=== PATIENT | female | born 1965 | race Caucasian/White ===

== ENCOUNTER 2019-06-12 23:12 | Inpatient (IN) | payer OTHER ==
--- NOTE | 2019-06-12 23:28 | PDOC ---
Attending Attestation - Resident Resident Name: Miya Henao - ED Attending Attestation I have performed the following: I have examined & evaluated the patient, The case was reviewed & discussed with the resident, I agree w/resident's findings & plan - HPI HPI: 06/13/19 03:25 see resident hpi - Physicial Exam PE: 06/13/19 03:25 agree with resident exam - Critical Care Time Total Critical Care Time: 120 Critical Care Statement: The care of this patient involved high complexity decision making to prevent further life threatening deterioration of the patient 's condition and/or to evaluate & treat vital organ system(s) failure or risk of failure. - Medical Decision Making 06/13/19 03:25 53 yo female with respiratory arrest witnessed by retirement staff According to paramedics patient was in PEA and returned to sinus rhythm after 2 minutes of CPR Patient has a tracheostomy in place Patient had return of spontaneous circulation prior to arrival Sepsis work-up initiated, antibiotics initiated Cooling protocol initiated as well Patient to be admitted to the ICU
[2019-06-12 23:41] LABS: BASO % 0.3 % (0-2.0); EOS % 3.1 % (0-4.5); HEMATOCRIT 34.2 % (32.4-45.2); HEMOGLOBIN 10.3 GM/dL (10.7-15.3); LYMPH % 21.5 % (8-40); MCH 30.7 pg (25.7-33.7); MEAN CELL VOLUME 102.4 fl (80-96); MEAN PLT VOLUME 11.4 fl (7.5-11.1); MONO % 2.8 % (3.8-10.2); NEUT % 72.3 % (42.8-82.8); PLATELET COUNT 319 K/MM3 (134-434); RBC 3.34 M/mm3 (3.60-5.2); RDW 17.7 % (11.6-15.6); WHITE BLOOD COUNT 15.5 K/mm3 (4.0-10.0)
--- NOTE | 2019-06-12 23:50 | PDOC ---
History of Present Illness - General Chief Complaint: Cardiac Arrest Stated Complaint: CARDIAC ARREST Time Seen by Provider: 06/12/19 23:27 History Source: EMS, [facility] Records Exam Limitations: Clinical Condition - History of Present Illness Initial Comments: 06/12/19 23:58 53y F with PMH of Osteogenesis Imperfecta, COPD, Chronic Respiratory Failure s/ p Trach, Autism Spectrum Disorder, Wedge Compression Fracture of T2 BIBA from [facility] for cardiac arrest s/p rosc. Per NH, nurse was helping resident in the same room as patient and saw that patient appeared oh and was not responsive. Compressions were started and EMS arrived. Per EMS, rhythm was PEA and they did 2 rounds of CPR with ROSC after 4 minutes. Pt was then tachycardic. No medications were given. Per NH, patient is able to move extremities at baseline, and can respond to commands. PMD: Joey PMH: see hpi PSH: Meds: see med rec Allergies: Past History - Past Medical History Allergies/Adverse Reactions: Allergies Allergy/AdvReac Type Severity Reaction Status Date / Time birch Allergy Severe Rash Verified 06/13/19 00:48 iodine Allergy Severe Rash Verified 06/13/19 00:49 lactase [From Lactrase] Allergy Mild Rash Verified 06/13/19 00:50 Home Medications: Ambulatory Orders Acetaminophen 325 mg PO DAILY 06/13/19 Albuterol 2.5/Ipratropium 0.5 [Duoneb -] 1 puff PO DAILY 06/13/19 Ascorbic Acid [Vitamin C] 500 mg PO DAILY 06/13/19 Bisacodyl 1 gm MC DAILY 06/13/19 Calcium Carbonate - 650 mg PO DAILY 06/13/19 Ciclopirox/Urea/Camph/Men/Euc [Ciclodan 8% Kit] 34.6 ml TP DAILY 06/13/19 Cyclobenzaprine HCl 5 mg PO DAILY 06/13/19 Docusate Sodium 1 gm MC DAILY 06/13/19 Famotidine 20 mg PO DAILY 06/13/19 Fluoxetine HCl [Prozac -] 20 mg PO DAILY 06/13/19 Gabapentin 250 mg PO DAILY 06/13/19 Heparin - 5,000 unit SQ BID 06/13/19 Miconazole Nitrate [Secura Antifungal] 57 gm TP DAILY 06/13/19 Nystatin 1 each MC DAILY 06/13/19 Polyethylene Glycol 3350 [Laxaclear] 1,700 gm PO DAILY 06/13/19 Risperidone 0.25 mg PO DAILY 06/13/19 Senna Vinco Extract [Senna] 176 mg PO DAILY 06/13/19 oxyCODONE HCL [Roxicodone -] 5 mg PO Q6H 06/13/19 - Psycho Social/Smoking Cessation Hx Smoking History: Unknown if ever smoked Review of Systems - Review of Systems Able to Perform ROS?: No *Physical Exam - Vital Signs Last Vital Signs Temp Pulse Resp BP Pulse Ox 97.5 F L 115 H 16 154/52 L 95 06/12/19 23:13 06/12/19 23:13 06/12/19 23:19 06/12/19 23:13 06/12/19 23:13 - Physical Exam General Appearance: Yes: Thin, Other (unresponsive, mouth open) HEENT: positive: Other (mouth open, dry mucosa). negative: EOMI, MANPREET Neck: positive: Trachea midline, Supple. negative: Lymphadenopathy (R), Lymphadenopathy (L) Respiratory/Chest: positive: Rhonchi, Other (vent assisted breathing) Cardiovascular: positive: Regular Rhythm, S1, S2, Tachycardia. negative: Edema , JVD, Murmur Vascular Pulses: Dorsalis-Pedis (R): 2+, Doralis-Pedis (L): 2+ Gastrointestinal/Abdominal: positive: Normal Bowel Sounds, Soft, Distended. negative: Guarding, Rebound, Hernia, Mass Extremity: positive: Coldness. negative: Swelling, Calf Tenderness, Erythema Integumentary: positive: Normal Color, Cold, Clammy, Bruising (old bruising on anterior abdomen). negative: Rash Neurologic: negative: medical education manager II-XII NML intact, Fully Oriented, Alert, Normal Response, Motor Strength 5/5, Respond to painful stimul, Responsive ED Treatment Course - LABORATORY CBC & Chemistry Diagram: 06/12/19 23:35 06/12/19 23:35 - ADDITIONAL ORDERS Additional order review: 06/12/19 23:35 RBC 3.34 L MCV 102.4 H MCHC 30.0 L RDW 17.7 H MPV 11.4 H Neutrophils % 72.3 Lymphocytes % 21.5 Monocytes % 2.8 L Eosinophils % 3.1 Basophils % 0.3 Medical Decision Making - Critical Care Time Total Critical Care Time (minutes): 120 Critical Care Statement: The care of this patient involved high complexity decision making to prevent further life threatening deterioration of the patient 's condition and/or to evaluate & treat vital organ system(s) failure or risk of failure. - Medical Decision Making 06/13/19 02:08 53y F with PMH of OI, COPD, Respiratory Failure s/p trach, PEG tube, ASD BIBA from [facility] for unresponsiveness, cardiac arrest with ROSC after 4m of cpr. Patient found unresponsive at MD. Unknown when patient was seen prior to that. CPR with MAKAYLA vitals: saturating well with vent, tachycardic, normotensive. EMS started 1L NS ddx includes but not limited to sepsis, electrolyte abnormality, mi, stroke, pe , ptx, tamponade, bleed, hypoxia labs including cultures, lactate, cardiac profile. iv fluids. ekg: nsr at 93bpm normal intervals. no cristofer or depresions. twi in v1, v2. goor R wave progression. CXR: poor film, small pnuemothorax in EVETTE. unkown if there before. haziness in RLL. labs show leukocytosis (infection v. reactive), low hgb (prior unknown), lactic 13, ph 7.3 with CO2 retention (has history of CRF with hypercapnia). elevated LFTs (shock v. hepatic/biliary disease). abdomen is distended. US ordered. low suspicion for AAA rupture given normotensive. POCUS: no intrabdominal ff. unable to visualize aorta due to bowel gas. no pericardial ff. pt likely has brain injury, is not withdrawing from pain, limbs are limp and pupils fixed and nonreactive. cooling started. -vanc/zosyn admitted to ICU Discharge - Discharge Information Problems reviewed: Yes Clinical Impression/Diagnosis: Unresponsive, Cardiac arrest, Abdominal distension Condition: Stable - Admission Yes - Follow up/Referral - Patient Discharge Instructions - Post Discharge Activity
[2019-06-12 23:55] LABS: INR 1.04 (0.83-1.09); PROTHROMBIN TIME (PATIENT) 12.3 SEC (9.7-13.0)
[2019-06-13 00:05] LABS: ALBUMIN 2.4 g/dl (3.4-5.0); BILIRUBIN,TOTAL 0.2 mg/dL (0.2-1); BLOOD UREA NITROGEN 22.5 mg/dL (7-18); CALCIUM 9.2 mg/dL (8.5-10.1); CREATININE 0.8 mg/dL (0.55-1.3); MAGNESIUM 2.1 mg/dL (1.8-2.4); POTASSIUM 4.9 mmol/L (3.5-5.1); TOT PROT 7.3 g/dl (6.4-8.2)
[2019-06-13 00:25] LABS: ALLENS TEST POSITIVE
[2019-06-13 00:28] LABS: ANISOCYTOSIS 1+; MACROCYTOSIS 1+; PLATELET ESTIMATE NORMAL
[2019-06-13 00:29] LABS: ARTERIAL BLD GAS O2 SATURATION 99.4 % (95-98); ARTERIAL BLOOD GAS BASE EXCESS -1.9 meq/l (-2-2); ARTERIAL BLOOD GAS PO2 176 mmHg (80-100); ARTERIAL BLOOD GAS pH 7.33 (7.35-7.45); CARBOXYHEMOGLOBIN 1.2 % (0-2)
[2019-06-13] MEDS ORDERED: LACTATED RINGERS SOLUTION 1000 ML INFUS.BAG IV ONE (01:00)
[2019-06-13 01:05] LABS: EPI CELLS 6.9 /HPF (0-5/HPF); HYALINE CASTS 10 /lpf (0-8); URINE APPEARANCE CLOUDY; URINE BACTERIA 107.4 /hpf (NEGATIVE); URINE BILIRUBIN NEGATIVE (NEGATIVE); URINE COLOR YELLOW; URINE GLUCOSE (UA) 1+ (NEGATIVE); URINE KETONE NEGATIVE (NEGATIVE); URINE LEUK ESTERASE NEGATIVE (NEGATIVE); URINE NITRITE NEGATIVE (NEGATIVE); URINE PROTEIN 2+ (NEGATIVE); URINE RBC 1 /hpf (0-4); URINE UROBILINOGEN 0.2 mg/dL (0.2-1.0); URINE WBC 6 /hpf (0-5)
[2019-06-13] MEDS ORDERED: SODIUM CHLORIDE 1,000 ML IV STA (01:08)
[2019-06-13] MEDS ORDERED: PIPERACILLIN/TAZOB 3.375 GM 3.375 GM in DEXTROSE 5%-WATER - 50 ML IVPB ONE (01:27)
[2019-06-13] MEDS ORDERED: VANCOMYCIN 1 GM in D5W (PRE-DOCKED) 1,000 MG/250 ML IVPB ONE (01:27)
[2019-06-13] MEDS ORDERED: PIPERACILLIN/TAZOB 3.375 GM 3.375 GM/50 ML BAG IVPB ONE (01:54)
[2019-06-13] MEDS ORDERED: VANCOMYCIN 1 GRAM (PRE-DOCKED) 1,000 MG/250 ML BAG IVPB ONE (01:54)
--- NOTE | 2019-06-13 02:09 | CONSULT ---
Consultation: REQUESTING PROVIDER: Dr Henao CONSULT REQUEST: We have been asked to medically evaluate this patient for (s/p cardiac arrest). HISTORY OF PRESENT ILLNESS: Information obtained from EMR as pt non-verbal and non-responsive. This is a 53 y/o F with a PMH of Osteogenesis Imperfecta, COPD, Chronic Respiratory Failure s/p Trach, Autism Spectrum Disorder, Wedge Compression Fracture of T2 who presented to [facility] from [facility] 2/2 cardiac arrest s/p rosc. Pt was reportedly found by OR staff to be pale and non-responsive. Pt was ultimately found to be in PEA and EMs subsequently did 2 rounds of CPR with ROSC after 4 minutes. REVIEW OF SYSTEMS: unable to obtain 2/2 pt's mental status. PHYSICAL EXAMINATION Vital Signs - 24 hr 06/12/19 06/12/19 06/13/19 23:13 23:19 00:41 Temperature 97.5 F L Pulse Rate 115 H Respiratory 15 16 16 Rate Blood Pressure 154/52 L O2 Sat by Pulse 95 Oximetry (%) GENERAL: Trach collar, vented HEAD: Normal with no signs of trauma. EYES: Pinpoint pupils, sluggish, eyes open EARS, NOSE, THROAT:copious secretions in mouth LUNGS: Mechanical Breath sounds HEART: RRR S1S2 ABDOMEN: Echymosis across abdomen, protuberant. PEG tube in place. LOWER EXTREMITIES: Thin, No CCE Laboratory Results - last 24 hr 06/12/19 06/12/19 06/12/19 23:35 23:35 23:35 WBC 15.5 H RBC 3.34 L Hgb 10.3 L Hct 34.2 MCV 102.4 H MCH 30.7 MCHC 30.0 L RDW 17.7 H Plt Count 319 MPV 11.4 H Absolute Neuts (auto) 11.2 H Neutrophils % 72.3 Neutrophils % (Manual) 61.4 Band Neutrophils % 2.0 Lymphocytes % 21.5 Lymphocytes % (Manual) 25.7 Monocytes % 2.8 L Monocytes % (Manual) 1 L Eosinophils % 3.1 Eosinophils % (Manual) 4.9 H Basophils % 0.3 Basophils % (Manual) 0.0 Myelocytes % (Man) 4 H Promyelocytes % (Man) 0 Blast Cells % (Manual) 0 Nucleated RBC % 4 H Metamyelocytes 0 Hypochromia 0 Platelet Estimate Normal Polychromasia 1+ Poikilocytosis 3+ Anisocytosis 1+ Microcytosis 0 Macrocytosis 1+ PT with INR 12.30 INR 1.04 Anticoagulation Therapy Puncture Site ABG pH ABG pCO2 at Pt Temp ABG pO2 at Pt Temp ABG HCO3 ABG O2 Sat (Measured) ABG O2 Content ABG Base Excess Jacob Test Carboxyhemoglobin Methemoglobin O2 Delivery Device Oxygen Flow Rate Vent Mode Vent Rate Mechanical Rate PEEP Pressure Support Vent Sodium 136 Potassium 4.9 Chloride 96 L Carbon Dioxide 21 Anion Gap 19 H BUN 22.5 H Creatinine 0.8 Est GFR (CKD-EPI)AfAm 96.19 Est GFR (CKD-EPI)NonAf 83.00 Random Glucose 266 H Lactic Acid Calcium 9.2 Magnesium 2.1 Total Bilirubin 0.2 AST 309 H ALT 287 H Alkaline Phosphatase 386 H Creatine Kinase 98 Troponin I 0.04 Total Protein 7.3 Albumin 2.4 L Urine Color Urine Appearance Urine pH Ur Specific Musella Urine Protein Urine Glucose (UA) Urine Ketones Urine Blood Urine Nitrite Urine Bilirubin Urine Urobilinogen Ur Leukocyte Esterase Urine WBC (Auto) Urine RBC (Auto) Urine Casts (Auto) U Epithel Cells (Auto) U Sm Round Cell (Auto) Urine Bacteria (Auto) Blood Type Antibody Screen 06/12/19 06/13/19 06/13/19 23:40 00:00 00:20 WBC RBC Hgb Hct MCV MCH MCHC RDW Plt Count MPV Absolute Neuts (auto) Neutrophils % Neutrophils % (Manual) Band Neutrophils % Lymphocytes % Lymphocytes % (Manual) Monocytes % Monocytes % (Manual) Eosinophils % Eosinophils % (Manual) Basophils % Basophils % (Manual) Myelocytes % (Man) Promyelocytes % (Man) Blast Cells % (Manual) Nucleated RBC % Metamyelocytes Hypochromia Platelet Estimate Polychromasia Poikilocytosis Anisocytosis Microcytosis Macrocytosis PT with INR INR Anticoagulation Therapy No Result Required. Puncture Site Left radial ABG pH 7.33 L ABG pCO2 at Pt Temp 46.0 H ABG pO2 at Pt Temp 176 H ABG HCO3 23.5 ABG O2 Sat (Measured) 99.4 H ABG O2 Content 13.3 ABG Base Excess -1.9 Jacob Test Positive Carboxyhemoglobin 1.2 Methemoglobin < 1.0 O2 Delivery Device Vent Oxygen Flow Rate 50% Vent Mode A/c Vent Rate 16 Mechanical Rate Yes PEEP 5.0 Pressure Support Vent 350 Sodium Potassium Chloride Carbon Dioxide Anion Gap BUN Creatinine Est GFR (CKD-EPI)AfAm Est GFR (CKD-EPI)NonAf Random Glucose Lactic Acid 13.8 H* Calcium Magnesium Total Bilirubin AST ALT Alkaline Phosphatase Creatine Kinase Troponin I Total Protein Albumin Urine Color Urine Appearance Urine pH Ur Specific Musella Urine Protein Urine Glucose (UA) Urine Ketones Urine Blood Urine Nitrite Urine Bilirubin Urine Urobilinogen Ur Leukocyte Esterase Urine WBC (Auto) Urine RBC (Auto) Urine Casts (Auto) U Epithel Cells (Auto) U Sm Round Cell (Auto) Urine Bacteria (Auto) Blood Type A NEGATIVE Antibody Screen Negative 06/13/19 00:50 WBC RBC Hgb Hct MCV MCH MCHC RDW Plt Count MPV Absolute Neuts (auto) Neutrophils % Neutrophils % (Manual) Band Neutrophils % Lymphocytes % Lymphocytes % (Manual) Monocytes % Monocytes % (Manual) Eosinophils % Eosinophils % (Manual) Basophils % Basophils % (Manual) Myelocytes % (Man) Promyelocytes % (Man) Blast Cells % (Manual) Nucleated RBC % Metamyelocytes Hypochromia Platelet Estimate Polychromasia Poikilocytosis Anisocytosis Microcytosis Macrocytosis PT with INR INR Anticoagulation Therapy Puncture Site ABG pH ABG pCO2 at Pt Temp ABG pO2 at Pt Temp ABG HCO3 ABG O2 Sat (Measured) ABG O2 Content ABG Base Excess Jacob Test Carboxyhemoglobin Methemoglobin O2 Delivery Device Oxygen Flow Rate Vent Mode Vent Rate Mechanical Rate PEEP Pressure Support Vent Sodium Potassium Chloride Carbon Dioxide Anion Gap BUN Creatinine Est GFR (CKD-EPI)AfAm Est GFR (CKD-EPI)NonAf Random Glucose Lactic Acid Calcium Magnesium Total Bilirubin AST ALT Alkaline Phosphatase Creatine Kinase Troponin I Total Protein Albumin Urine Color Yellow Urine Appearance Cloudy Urine pH 6.0 Ur Specific Musella 1.013 Urine Protein 2+ H Urine Glucose (UA) 1+ H Urine Ketones Negative Urine Blood 1+ H Urine Nitrite Negative Urine Bilirubin Negative Urine Urobilinogen 0.2 Ur Leukocyte Esterase Negative Urine WBC (Auto) 6 Urine RBC (Auto) 1 Urine Casts (Auto) 10 U Epithel Cells (Auto) 6.9 U Sm Round Cell (Auto) 0.9 Urine Bacteria (Auto) 107.4 Blood Type Antibody Screen ASSESSMENT/PLAN: This is a 53 y/o F with a PMH of Osteogenesis Imperfecta, COPD, Chronic Respiratory Failure s/p Trach, Autism Spectrum Disorder, Wedge Compression Fracture of T2 who presented to [facility] from [place] 2/2 cardiac arrest s/p rosc. #NEURO- Autism Spectrum d/o. -Pt s/p Cardiac arrest. Pt reportedly not at baseline -CT Head -Neuro Consult -Continue Risperidone #ID- Sepsis 2/2 unclear source of infection -lactic 13.8, trend. WBC 15.5, HR 115 -S/p Vanc/Zosyn -ID Consult #CARDIO-S/p Cardiac Arrest 2/2 unknown etiology -Cardiac arrest s/p ROSC -Will initiate Hypothermia protocol -ICU monitoring -Cardio consult #FEN NS@125cc/hr Monitor Electrolytes NPO Dispo: We will continue to follow the patient. Thank you for this consultative opportunity. ATTENDING PHYSICIAN STATEMENT I saw and evaluated the patient. I reviewed the resident's note and discussed the case with the resident. I agree with the resident's findings and plan as documented. SUBJECTIVE: OBJECTIVE: ASSESSMENT AND PLAN:
--- NOTE | 2019-06-13 02:09 | HP ---
Admitting History and Physical - Primary Care Physician PCP: Sergio Cook - Admission Chief Complaint: Unresponsive, Cardiac Arrest History of Present Illness: This is a 53 y/o woman from [facility] with a PMHx of Osteogenesis Imperfecta, COPD, Chronic Respiratory Failure s/p Trach, Autism Spectrum Disorder, Wedge Compression Fracture of T2. Who was BIBA for cardiac arrest s/p rosc. Per OR, nurse was helping resident in the same room as patient and saw that patient appeared oh and was not responsive. Compressions were started and EMS arrived. Per EMS, rhythm was PEA and they did 2 rounds of CPR with ROSC after 4 minutes. Pt was then tachycardic. No medications were given. Per OR, patient is able to move extremities at baseline, and can respond to commands. History Source: Transfer Record Limitations to Obtaining History: Clinical Condition - Past Medical History Pulmonary: Yes: COPD, O2 Dependent, Other (Chronic Respiratory Failure s/p trach ) Gastrointestinal: Yes: GERD Musculoskeletal: Yes: Other ( Osteogenesis Imperfecta) Additional Past Medical History: Autism Disorder - Past Surgical History Additional Past Surgical History: Tracheotomy - Smoking History Smoking history: Unknown if ever smoked - Alcohol/Substance Use Hx Alcohol Use: No History of Substance Use: reports: None - Social History Usual Living Arrangement: Yes: Long-Term ADL: Support Services History of Recent Travel: No Home Medications - Allergies Allergies/Adverse Reactions: Allergies Allergy/AdvReac Type Severity Reaction Status Date / Time birch Allergy Severe Rash Verified 06/13/19 00:48 iodine Allergy Severe Rash Verified 06/13/19 00:49 lactase [From Lactrase] Allergy Mild Rash Verified 06/13/19 00:50 - Home Medications Home Medications: Ambulatory Orders Acetaminophen 325 mg PO DAILY 06/13/19 Albuterol 2.5/Ipratropium 0.5 [Duoneb -] 1 puff PO DAILY 06/13/19 Ascorbic Acid [Vitamin C] 500 mg PO DAILY 06/13/19 Bisacodyl 1 gm MC DAILY 06/13/19 Calcium Carbonate - 650 mg PO DAILY 06/13/19 Ciclopirox/Urea/Camph/Men/Euc [Ciclodan 8% Kit] 34.6 ml TP DAILY 06/13/19 Cyclobenzaprine HCl 5 mg PO DAILY 06/13/19 Docusate Sodium 1 gm MC DAILY 06/13/19 Famotidine 20 mg PO DAILY 06/13/19 Fluoxetine HCl [Prozac -] 20 mg PO DAILY 06/13/19 Gabapentin 250 mg PO DAILY 06/13/19 Heparin - 5,000 unit SQ BID 06/13/19 Miconazole Nitrate [Secura Antifungal] 57 gm TP DAILY 06/13/19 Nystatin 1 each MC DAILY 06/13/19 Polyethylene Glycol 3350 [Laxaclear] 1,700 gm PO DAILY 06/13/19 Risperidone 0.25 mg PO DAILY 06/13/19 Senna [place] Extract [Senna] 176 mg PO DAILY 06/13/19 oxyCODONE HCL [Roxicodone -] 5 mg PO Q6H 06/13/19 Family Medical History Family History: Unable to Obtain Review of Systems Unable to obtain ROS, reason: Clinical Condition Physical Examination Vital Signs: Vital Signs Temperature 97.5 F L 06/12/19 23:13 Pulse Rate 115 H 06/12/19 23:13 Respiratory Rate 16 06/13/19 00:41 Blood Pressure 154/52 L 06/12/19 23:13 O2 Sat by Pulse Oximetry (%) 95 06/12/19 23:13 Constitutional: Yes: Other (unresponsive mechanical ventilation via Trach) Eyes: Yes: Conjunctiva Clear HENT: Yes: Atraumatic, Normocephalic Neck: Yes: Supple, Other (Trach) Cardiovascular: Yes: Regular Rate and Rhythm, S1, S2 Respiratory: Yes: Mechanically Ventilated, Rhonchi (Coarse), Wheezes Gastrointestinal: Yes: Distention, Hypoactive Bowel Sounds, Other (Peg multiple mccauley-green bruising to central abd) Renal/: Yes: Garza Present Breast(s): Yes: WNL Extremities: Yes: Cool Edema: No Peripheral Pulses WNL: Yes Integumentary: Yes: Bruising (to central abd) Neurological: Yes: Unresponsive Labs: CBC, BMP 06/12/19 23:35 06/12/19 23:35 Laboratory Results - last 24 hr 06/12/19 06/12/19 06/12/19 23:35 23:35 23:35 WBC 15.5 H RBC 3.34 L Hgb 10.3 L Hct 34.2 MCV 102.4 H MCH 30.7 MCHC 30.0 L RDW 17.7 H Plt Count 319 MPV 11.4 H Absolute Neuts (auto) 11.2 H Neutrophils % 72.3 Neutrophils % (Manual) 61.4 Band Neutrophils % 2.0 Lymphocytes % 21.5 Lymphocytes % (Manual) 25.7 Monocytes % 2.8 L Monocytes % (Manual) 1 L Eosinophils % 3.1 Eosinophils % (Manual) 4.9 H Basophils % 0.3 Basophils % (Manual) 0.0 Myelocytes % (Man) 4 H Promyelocytes % (Man) 0 Blast Cells % (Manual) 0 Nucleated RBC % 4 H Metamyelocytes 0 Hypochromia 0 Platelet Estimate Normal Polychromasia 1+ Poikilocytosis 3+ Anisocytosis 1+ Microcytosis 0 Macrocytosis 1+ PT with INR 12.30 INR 1.04 Anticoagulation Therapy Puncture Site ABG pH ABG pCO2 at Pt Temp ABG pO2 at Pt Temp ABG HCO3 ABG O2 Sat (Measured) ABG O2 Content ABG Base Excess Jacob Test Carboxyhemoglobin Methemoglobin O2 Delivery Device Oxygen Flow Rate Vent Mode Vent Rate Mechanical Rate PEEP Pressure Support Vent Sodium 136 Potassium 4.9 Chloride 96 L Carbon Dioxide 21 Anion Gap 19 H BUN 22.5 H Creatinine 0.8 Est GFR (CKD-EPI)AfAm 96.19 Est GFR (CKD-EPI)NonAf 83.00 Random Glucose 266 H Lactic Acid Calcium 9.2 Magnesium 2.1 Total Bilirubin 0.2 AST 309 H ALT 287 H Alkaline Phosphatase 386 H Creatine Kinase 98 Troponin I 0.04 Total Protein 7.3 Albumin 2.4 L Urine Color Urine Appearance Urine pH Ur Specific Healy Urine Protein Urine Glucose (UA) Urine Ketones Urine Blood Urine Nitrite Urine Bilirubin Urine Urobilinogen Ur Leukocyte Esterase Urine WBC (Auto) Urine RBC (Auto) Urine Casts (Auto) U Epithel Cells (Auto) U Sm Round Cell (Auto) Urine Bacteria (Auto) Blood Type Antibody Screen 06/12/19 06/13/19 06/13/19 23:40 00:00 00:20 WBC RBC Hgb Hct MCV MCH MCHC RDW Plt Count MPV Absolute Neuts (auto) Neutrophils % Neutrophils % (Manual) Band Neutrophils % Lymphocytes % Lymphocytes % (Manual) Monocytes % Monocytes % (Manual) Eosinophils % Eosinophils % (Manual) Basophils % Basophils % (Manual) Myelocytes % (Man) Promyelocytes % (Man) Blast Cells % (Manual) Nucleated RBC % Metamyelocytes Hypochromia Platelet Estimate Polychromasia Poikilocytosis Anisocytosis Microcytosis Macrocytosis PT with INR INR Anticoagulation Therapy No Result Required. Puncture Site Left radial ABG pH 7.33 L ABG pCO2 at Pt Temp 46.0 H ABG pO2 at Pt Temp 176 H ABG HCO3 23.5 ABG O2 Sat (Measured) 99.4 H ABG O2 Content 13.3 ABG Base Excess -1.9 Jacob Test Positive Carboxyhemoglobin 1.2 Methemoglobin < 1.0 O2 Delivery Device Vent Oxygen Flow Rate 50% Vent Mode A/c Vent Rate 16 Mechanical Rate Yes PEEP 5.0 Pressure Support Vent 350 Sodium Potassium Chloride Carbon Dioxide Anion Gap BUN Creatinine Est GFR (CKD-EPI)AfAm Est GFR (CKD-EPI)NonAf Random Glucose Lactic Acid 13.8 H* Calcium Magnesium Total Bilirubin AST ALT Alkaline Phosphatase Creatine Kinase Troponin I Total Protein Albumin Urine Color Urine Appearance Urine pH Ur Specific [place] Urine Protein Urine Glucose (UA) Urine Ketones Urine Blood Urine Nitrite Urine Bilirubin Urine Urobilinogen Ur Leukocyte Esterase Urine WBC (Auto) Urine RBC (Auto) Urine Casts (Auto) U Epithel Cells (Auto) U Sm Round Cell (Auto) Urine Bacteria (Auto) Blood Type A NEGATIVE Antibody Screen Negative 06/13/19 06/13/19 00:50 02:00 WBC RBC Hgb Hct MCV MCH MCHC RDW Plt Count MPV Absolute Neuts (auto) Neutrophils % Neutrophils % (Manual) Band Neutrophils % Lymphocytes % Lymphocytes % (Manual) Monocytes % Monocytes % (Manual) Eosinophils % Eosinophils % (Manual) Basophils % Basophils % (Manual) Myelocytes % (Man) Promyelocytes % (Man) Blast Cells % (Manual) Nucleated RBC % Metamyelocytes Hypochromia Platelet Estimate Polychromasia Poikilocytosis Anisocytosis Microcytosis Macrocytosis PT with INR INR Anticoagulation Therapy Puncture Site ABG pH ABG pCO2 at Pt Temp ABG pO2 at Pt Temp ABG HCO3 ABG O2 Sat (Measured) ABG O2 Content ABG Base Excess Jacob Test Carboxyhemoglobin Methemoglobin O2 Delivery Device Oxygen Flow Rate Vent Mode Vent Rate Mechanical Rate PEEP Pressure Support Vent Sodium Potassium Chloride Carbon Dioxide Anion Gap BUN Creatinine Est GFR (CKD-EPI)AfAm Est GFR (CKD-EPI)NonAf Random Glucose Lactic Acid 6.2 H* Calcium Magnesium Total Bilirubin AST ALT Alkaline Phosphatase Creatine Kinase Troponin I Total Protein Albumin Urine Color Yellow Urine Appearance Cloudy Urine pH 6.0 Ur Specific Healy 1.013 Urine Protein 2+ H Urine Glucose (UA) 1+ H Urine Ketones Negative Urine Blood 1+ H Urine Nitrite Negative Urine Bilirubin Negative Urine Urobilinogen 0.2 Ur Leukocyte Esterase Negative Urine WBC (Auto) 6 Urine RBC (Auto) 1 Urine Casts (Auto) 10 U Epithel Cells (Auto) 6.9 U Sm Round Cell (Auto) 0.9 Urine Bacteria (Auto) 107.4 Blood Type Antibody Screen Current Medications Generic Name Dose Route Start Last Admin Trade Name Freq PRN Reason Stop Dose Admin Chlorhexidine Gluconate 1 applic 06/13/19 22:00 Hibiclens For Decolonization - TP HS JUAN ALBERTO Sodium Chloride 1,000 mls @ 500 mls/hr 06/13/19 02:45 06/13/19 03:06 Normal Saline - IV 500 mls/hr ASDIR JUAN ALBERTO Administration Sodium Chloride 1,000 mls @ 125 mls/hr 06/13/19 02:45 06/13/19 03:06 Normal Saline - IV 125 mls/hr ASDIR JUAN ALBERTO Administration Mupirocin 1 applic 06/13/19 10:00 Bactroban Ointment (For Decolonization) - NS 06/18/19 09:59 BID JUAN ALBERTO Imaging - Results Chest X-ray: Image Reviewed Cat Scan: Image Reviewed EKG: Image Reviewed Problem List - Problems (1) Cardiac arrest Assessment/Plan: unknown etiology Continue cardiac monitoring Hypothermia Protocol initiated in ED Appreciate Sleep Lab Technician consult Continue IVF Maintain MAP > 65 Neuro checks CBC per Hypothermia Protocol Monitor BMP Lactate elevated 13.8 likely secondary to arrest, repeat 6.8 Fluid Resuscitation as tolerated monitor for fluid overload Trend lactate Code(s): I46.9 - CARDIAC ARREST, CAUSE UNSPECIFIED (2) Sepsis Assessment/Plan: qSOFA 1 Severe Sepsis Criteria Met: Lactic Acid 13.8 ~ 6.8, WBC 15.5, BUN 22.5, P 115 Blood Cultures-pending Urine Culture-pending Vancomycin and Zosyn given in ED, will continue Appreciate ID consult Monitor CBC, BMP Chest Xray image- reviewed Code(s): A41.9 - SEPSIS, UNSPECIFIED ORGANISM (3) Chronic respiratory failure with hypoxia and hypercapnia Assessment/Plan: on mechanical ventilator via trach Code(s): J96.11 - CHRONIC RESPIRATORY FAILURE WITH HYPOXIA; J96.12 - CHRONIC RESPIRATORY FAILURE WITH HYPERCAPNIA (4) COPD (chronic obstructive pulmonary disease) Assessment/Plan: Appreciate Pulmonology consult O2 Chest Xray image- reviewed Continue home meds Code(s): J44.9 - CHRONIC OBSTRUCTIVE PULMONARY DISEASE, UNSPECIFIED (5) Transaminitis Assessment/Plan: Will r/o Liver Failure US pending Hepatitis A+B panel, Hep C profile, IGG immunoglobulin, Fe + TIBC- pending Avoid Hepatotoxic drugs Monitor BMP Appreciate GI consult Code(s): R74.0 - NONSPEC ELEV OF LEVELS OF TRANSAMNS & LACTIC ACID DEHYDRGNSE (6) Osteogenesis imperfecta Code(s): Q78.0 - OSTEOGENESIS IMPERFECTA (7) GERD (gastroesophageal reflux disease) Assessment/Plan: Continue PPI Code(s): K21.9 - GASTRO-ESOPHAGEAL REFLUX DISEASE WITHOUT ESOPHAGITIS (8) Autism disorder Code(s): F84.0 - AUTISTIC DISORDER Assessment/Plan This is a 53 y/o woman with a PMHx of 53y Osteogenesis Imperfecta, COPD, Chronic Respiratory Failure s/p Trach, Autism Spectrum Disorder, Wedge Compression Fracture of T2. Admitted to ICU for Cardiac Arrest, Sepsis, Chronic Respiratory Failure with Hypoxia and Hypercapnia for further evaluation of their emergent condition. Plan: See Problem List FEN NS@125ml/hr Replete lytes prn NPO DVT ppx SCDs Heparin SQ Code Status: Full Code Dispo: Requires Inpatient Care Visit type - Emergency Visit Emergency Visit: Yes ED Registration Date: 06/12/19 Care time: The patient presented to the Emergency Department on the above date and was hospitalized for further evaluation of their emergent condition. - New Patient This patient is new to me today: Yes Date on this admission: 06/13/19 - Critical Care Critical Care patient: Yes Total Critical Care Time (in minutes): 40 Critical Care Statement: The care of this patient involved high complexity decision making to prevent further life threatening deterioration of the patient 's condition and/or to evaluate & treat vital organ system(s) failure or risk of failure.
[2019-06-13] MEDS ORDERED: SODIUM CHLORIDE 1,000 ML IV SCH (02:45)
[2019-06-13] MEDS: SODIUM CHLORIDE 1,000 ML IV SCH (03:06)
[2019-06-13 07:16] LABS: BASO % 0.1 % (0-2.0); HEMATOCRIT 29.5 % (32.4-45.2); HEMOGLOBIN 9.1 GM/dL (10.7-15.3); LYMPH % 3.4 % (8-40); MCH 30.6 pg (25.7-33.7); MCHC 30.9 g/dl (32.0-36.0); MEAN PLT VOLUME 11.2 fl (7.5-11.1); MONO % 3.7 % (3.8-10.2); NEUT % 92.8 % (42.8-82.8); PLATELET COUNT 295 K/MM3 (134-434); RBC 2.98 M/mm3 (3.60-5.2); RDW 17.3 % (11.6-15.6); WHITE BLOOD COUNT 25.8 K/mm3 (4.0-10.0)
--- NOTE | 2019-06-13 07:30 | PN ---
Progress Note, Physician Chief Complaint: TEACH/VENT SUPPORT REVIEWED IN ICU, EVENTS AND NOTES REVIEWED S/P CARDIAC ARREST - Current Medication List Current Medications: Active Medications Chlorhexidine Gluconate (Hibiclens For Decolonization -) 1 applic TP HS JUAN ALBERTO Sodium Chloride (Normal Saline -) 1,000 mls @ 125 mls/hr IV ASDIR JUAN ALBERTO Last Admin: 06/13/19 03:06 Dose: 125 mls/hr Mupirocin (Bactroban Ointment (For Decolonization) -) 1 applic NS BID JUAN ALBERTO Stop: 06/18/19 09:59 - Objective Vital Signs: Vital Signs Temperature 94.9 F L 06/13/19 06:00 Pulse Rate 73 06/13/19 06:00 Respiratory Rate 16 06/13/19 06:00 Blood Pressure 127/70 06/13/19 06:00 O2 Sat by Pulse Oximetry (%) 100 06/13/19 05:40 Constitutional: Yes: Mild Distress Neck: Yes: Other (TRACHEOSTOMY) Cardiovascular: Yes: Regular Rate and Rhythm Respiratory: Yes: Mechanically Ventilated Gastrointestinal: Yes: Distention (HARD) Genitourinary: Yes: Garza Present Musculoskeletal: Yes: Muscle Weakness Integumentary: Yes: Venous Stasis Changes Wound/Incision: Yes: Open to air Neurological: Yes: Confusion, Pre-Existing Deficit, Weakness Psychiatric: Yes: Other Labs: INR, PTT INR 1.04 (0.83-1.09) 06/12/19 23:35 Problem List - Problems (1) Abdominal distension Code(s): R14.0 - ABDOMINAL DISTENSION (GASEOUS) (2) Autism disorder Code(s): F84.0 - AUTISTIC DISORDER (3) COPD (chronic obstructive pulmonary disease) Code(s): J44.9 - CHRONIC OBSTRUCTIVE PULMONARY DISEASE, UNSPECIFIED (4) Cardiac arrest Code(s): I46.9 - CARDIAC ARREST, CAUSE UNSPECIFIED (5) Osteogenesis imperfecta Code(s): Q78.0 - OSTEOGENESIS IMPERFECTA (6) Sepsis Code(s): A41.9 - SEPSIS, UNSPECIFIED ORGANISM (7) Transaminitis Code(s): R74.0 - NONSPEC ELEV OF LEVELS OF TRANSAMNS & LACTIC ACID DEHYDRGNSE Assessment/Plan SEPSIS WITH LACTIC ACIDOSISIVF FLUIDS CHECK SOURCE OF LEUKOCYTOSIS INFECTION VS REACTIVE LEUKOCYTOSIS BLOOD AND URINE CX ID CONSULT XRAY OF ABD R/O ILEUS CARDIO EVAL IN ICU APPRECIATED VENT SUPPORT PER PULMONARY COMFORTABLE AT THIS TIME DVT PROPHYLAXIS
[2019-06-13 07:33] LABS: INR 1.12 (0.83-1.09); PROTHROMBIN TIME (PATIENT) 13.2 SEC (9.7-13.0)
[2019-06-13 07:35] LABS: ACTIVATED PTT 32.8 SECONDS (25.2-36.5)
[2019-06-13 07:47] LABS: ALBUMIN 2.3 g/dl (3.4-5.0); BILIRUBIN,TOTAL 0.3 mg/dL (0.2-1); BLOOD UREA NITROGEN 29.4 mg/dL (7-18); CALCIUM 8.4 mg/dL (8.5-10.1); CREATININE 0.4 mg/dL (0.55-1.3); MAGNESIUM 1.8 mg/dL (1.8-2.4); PHOSPHOROUS 3.3 mg/dL (2.5-4.9); POTASSIUM 4.3 mmol/L (3.5-5.1); TOT PROT 6.9 g/dl (6.4-8.2)
[2019-06-13] MEDS ORDERED: PIPERACILLIN/TAZOB 2.25 GM 2.25 GM in DEXTROSE 5%-WATER - 50 ML IVPB SCH (10:45)
[2019-06-13 10:56] LABS: ANISOCYTOSIS 1+; MACROCYTOSIS 0; PLATELET ESTIMATE NORMAL
--- NOTE | 2019-06-13 11:32 | CON.CARD ---
Consult Consult Specialty:: Cardiology Referred by:: ICU Reason for Consultation:: cardiac arrest - History of Present Illness Chief Complaint: admitted with PEA arrest History of Present Illness: 53 year old woman with a pmh of Osteogenesis Imperfecta, COPD, Chronic Respiratory Failure s/p Trach, Autism Spectrum Disorder, Wedge Compression Fracture of T2 admitted with acute on chronic respiratory failure, PEA cardiac arrest s/p ROSC, likely sepsis. Pt seen and examined in the ICU, currently mechanically ventilated, on hypothermia protocol. Unresponsive. No reported history of chest pain. Pt was noted by her roommate at [facility] to be unresponsive then alerted staff. - History Source History Provided By: Medical Record Limitations to Obtaining History: Unresponsive - Past Medical History Pulmonary: Yes: COPD, O2 Dependent, Other (Chronic Respiratory Failure s/p trach ) Gastrointestinal: Yes: GERD ...: No Musculoskeletal: Yes: Other ( Osteogenesis Imperfecta) - Alcohol/Substance Use Hx Alcohol Use: No History of Substance Use: reports: None - Smoking History Smoking history: Unknown if ever smoked - Social History ADL: Support Services History of Recent Travel: No Home Medications - Allergies Allergies/Adverse Reactions: Allergies Allergy/AdvReac Type Severity Reaction Status Date / Time birch Allergy Severe Rash Verified 06/13/19 00:48 iodine Allergy Severe Rash Verified 06/13/19 00:49 lactase [From Lactrase] Allergy Mild Rash Verified 06/13/19 00:50 - Home Medications Home Medications: Ambulatory Orders Acetaminophen 325 mg PO DAILY 06/13/19 Albuterol 2.5/Ipratropium 0.5 [Duoneb -] 1 puff PO DAILY 06/13/19 Ascorbic Acid [Vitamin C] 500 mg PO DAILY 06/13/19 Bisacodyl 1 gm MC DAILY 06/13/19 Calcium Carbonate - 650 mg PO DAILY 06/13/19 Ciclopirox/Urea/Camph/Men/Euc [Ciclodan 8% Kit] 34.6 ml TP DAILY 06/13/19 Cyclobenzaprine HCl 5 mg PO DAILY 06/13/19 Docusate Sodium 1 gm MC DAILY 06/13/19 Famotidine 20 mg PO DAILY 06/13/19 Fluoxetine HCl [Prozac -] 20 mg PO DAILY 06/13/19 Gabapentin 250 mg PO DAILY 06/13/19 Heparin - 5,000 unit SQ BID 06/13/19 Miconazole Nitrate [Secura Antifungal] 57 gm TP DAILY 06/13/19 Nystatin 1 each MC DAILY 06/13/19 Polyethylene Glycol 3350 [Laxaclear] 1,700 gm PO DAILY 06/13/19 Risperidone 0.25 mg PO DAILY 06/13/19 Senna [place] Extract [Senna] 176 mg PO DAILY 06/13/19 oxyCODONE HCL [Roxicodone -] 5 mg PO Q6H 06/13/19 Review of Systems - Review of Systems Constitutional: reports: Lethargy, Weakness. denies: No Symptoms, Chills, Diaphoresis, Fever, Loss of Appetite, Malaise, Night Sweats, Unintentional Wgt. Loss, Other Eyes: denies: No Symptoms, Blind Spots, Blurred Vision, Double Vision, Eye Pain , Floaters, Photophobia, Recent Change in Vision, Other HENT: denies: No Symptoms, Difficult Swallowing, Ear Discharge, Ear Pain, Epistaxis, Gingival Bleeding, Hearing Loss, Mouth Swelling, Nasal Congestion, Ocular Prosthesis, Throat Pain, Toothache, Ringing in Ears, Other Neck: denies: No Symptoms, Decreased ROM, Lumps, Pain on Movement, Stiffness, Swollen Glands, Tenderness, Other Cardiovascular: reports: Shortness of Breath. denies: No Symptoms, Chest Pain, Edema, Palpitations, Other Respiratory: reports: SOB. denies: No Symptoms, Cough, Exercise Intolerance, Hemoptysis, Orthopnea, PND, Snoring, SOB on Exertion, Wheezing, Other Gastrointestinal: denies: No Symptoms, Abdominal Pain, Bloating, Constipation, Diarrhea, Dysphagia, Indigestion, Melena, Nausea, Rectal Bleeding, Vomiting, Vomiting Blood, Other Genitourinary: denies: No Symptoms, Burning, Discharge, Dysuria, Flank Pain, Frequency, Hematuria, Incontinence, Lesions, Menses, Pain, Testicular Mass, Testicular Pain, Testicular Swelling, Urgency, Vaginal Bleeding, Other Breasts: denies: No Symptoms Reported, See HPI, Breast Implants, Discharge from Nipple, Lumps, Pain, Skin Changes, Other Musculoskeletal: denies: No Symptoms, Back Pain, Crepitus, Decreased ROM, Extremity Pain, Joint Pain, Joint Swelling, Muscle Pain, Muscle Cramps, Muscle Weakness, Other Integumentary: denies: No Symptoms, Blister, Bruising, Change in Color, Eczema, Erythema, Incision, Lesions, Lump, Pallor, Pruritis, Rash, Wound, Other Neurological: reports: Change in LOC. denies: No Symptoms, Change in Speech, Confusion, Dizziness, Headache, Incoordination, Numbness, Parasthesia, Pre- Existing Deficit, Seizure, Syncope, Tremors, Unsteady Gait, Weakness, Other Endocrine: denies: No Symptoms, Excessive Sweating, Flushing, Increased Hunger, Increased Thirst, Intolerance to Cold, Intolerance to Heat, Unexplained Weight Gain, Unexplained Weight Loss, Other Hematology/Lymphatic: denies: No Symptoms, Easily Bruised, Excessive Bleeding, Swollen Glands, Other Psychiatric: denies: No Symptoms, Altered Sleep Pattern, Anxiety, Depression, Hallucinations, Panic, Paranoia, Suicidal, Other Vital Signs: Vital Signs Temperature 91.8 F L 06/13/19 10:00 Pulse Rate 67 06/13/19 10:00 Respiratory Rate 17 06/13/19 10:00 Blood Pressure 114/98 06/13/19 10:00 O2 Sat by Pulse Oximetry (%) 100 06/13/19 09:00 Constitutional: Yes: No Distress HENT: Yes: Atraumatic, Normocephalic Respiratory: Yes: Regular, Mechanically Ventilated. No: Rales, Rhonchi, SOB, Wheezes Gastrointestinal: Yes: Normal Bowel Sounds Cardiovascular: Yes: Regular Rate and Rhythm. No: Bradycardia, Tachycardia, Pulse Irregular, Gallop, Rub, Varicosities JVD: No Carotid Bruit: No PMI: Non-Displaced Heart Sounds: Yes: S1, S2. No: Split S2, S3, S4, Clicks, Gallop, Rub, Bruit Murmur: No: Systolic Murmur, Diastolic Murmur Musculoskeletal: Yes: Muscle Weakness Edema: No Neurological: No: Alert, Oriented Psychiatric: No: Alert, Oriented - Other Data Labs, Other Data: CBC, BMP 06/13/19 06:00 06/13/19 06:00 INR, PTT INR 1.12 (0.83-1.09) H 06/13/19 06:00 Troponin, BNP 06/12/19 06/13/19 23:35 09:30 Troponin I 0.04 0.53 H Troponin, BNP 06/12/19 06/13/19 23:35 09:30 Troponin I 0.04 0.53 H nsr 93bpm, t wave inversions v2, v3 Echo: Pending Imaging - Results Chest X-ray: Report Reviewed, Image Reviewed EKG: Report Reviewed, Image Reviewed Other: Report Reviewed, Image Reviewed (tele-nsr, sinus tach, no arrhythmias) Assessment/Plan 53 year old woman with a pmh of Osteogenesis Imperfecta, COPD, Chronic Respiratory Failure s/p Trach, Autism Spectrum Disorder, Wedge Compression Fracture of T2 admitted with acute on chronic respiratory failure, PEA cardiac arrest s/p ROSC, likely sepsis. Pt seen and examined in the ICU, currently mechanically ventilated, on hypothermia protocol. Unresponsive. No reported history of chest pain. Pt was noted by her roommate at [facility] to be unresponsive then alerted staff. Cardiac arrest-PEA arrest -likely sepsis -does not appear to be a primary cardiac event -no sig ischemia on ekg -1st set of cardiac enzymes were wnl with normal CK and troponin level -2nd troponin mildly elevated, no CK level done, does not appear c/w with Type 1 PR -would Add CK level to 2nd troponin -check echo to evaluate LV function, structural heart disease -cont care/hypothermia protocol as per ICU
--- NOTE | 2019-06-13 11:57 | PN ---
Teaching Attending Note Name of Resident: Consuelo Tilley ATTENDING PHYSICIAN STATEMENT I saw and evaluated the patient. I reviewed the resident's note and discussed the case with the resident. I agree with the resident's findings and plan as documented. SUBJECTIVE: Pt seen and examined in the ICU. Vented, unresponsive on hypothermia protocol. No pressors. OBJECTIVE: Vital Signs Period Temp Pulse Resp BP Sys/Oliva Pulse Ox Last 24 Hr 91.8 F-97.5 F 67-115 12-17 103-154/52-98 95-100 Intake & Output 06/10/19 06/11/19 06/12/19 06/13/19 23:59 23:59 23:59 23:59 Intake Total 500 Output Total 200 Balance 300 Weight 49.442 kg 52.889 kg Gen: vented, unresponsive Heart: RRR Lung: decreased breath sounds at the bases Abd: soft, nontender Ext: no edema CBC, BMP 06/13/19 06:00 06/13/19 06:00 Active Medications Albuterol/Ipratropium (Duoneb -) 1 amp NEB RQID JUAN ALBERTO Chlorhexidine Gluconate (Hibiclens For Decolonization -) 1 applic TP HS JUAN ALBERTO Heparin Sodium (Porcine) (Heparin -) 5,000 unit SQ TID JUAN ALBERTO Sodium Chloride (Normal Saline -) 1,000 mls @ 125 mls/hr IV ASDIR JUAN ALBERTO Last Admin: 06/13/19 03:06 Dose: 125 mls/hr Piperacillin Sod/Tazobactam (Sod 2.25 gm/ Dextrose) 50 mls @ 100 mls/hr IVPB Q6H-IV JUAN ALBERTO Stop: 06/14/19 03:29 Piperacillin Sod/Tazobactam (Sod 2.25 gm/ Dextrose) 50 mls @ 100 mls/hr IVPB Q6H-IV JUAN ALBERTO; Protocol Stop: 06/16/19 03:29 Mupirocin (Bactroban Ointment (For Decolonization) -) 1 applic NS BID [facility] Stop: 06/18/19 09:59 Vancomycin HCl (Vancomycin (Pre-Docked)) 1,000 mg IVPB DAILY [facility]; Protocol ASSESSMENT AND PLAN: s/p Cardiopulmonary Arrest r/o Anoxic Brain Injury r/o Sepsis Lactic Acidosis Elevated LFTs likely Ischemic Injury +Troponins likely Demand Ischemia Chronic Respiratory Failure COPD Autism Osteogenesis Imperfecta Anemia - complete hypothermia protocol - passive rewarming - empiric antibiotics - f/u cultures - trend cardiac enzymes, lactate - echocardiogram - abdominal ultrasound - IVF - monitor urine output, creatinine - contact NH for baseline mental status - DVT/GI prophylaxis - prognosis guarded - continue ICU monitoring critical care time spent in reviewing chart, evaluating patient and formulating plan 35 min
[2019-06-13] MEDS: ALBUTEROL SO4 2.5/IPRATROPIUM 0.5 INH SOL 3 ML VIAL.NEB. NEB SCH ×3 (12:28→20:20)
[2019-06-13] MEDS ORDERED: PIPERACILLIN/TAZOB 4.5 GM 4.5 GM in DEXTROSE 5%-WATER 100 ML IVPB SCH (12:30)
--- NOTE | 2019-06-13 12:49 | EKG ---
Test Reason : Blood Pressure : / mmHG Vent. Rate : 073 BPM Atrial Rate : 073 BPM P-R Int : 120 ms QRS Dur : 092 ms QT Int : 448 ms P-R-T Axes : 070 035 066 degrees QTc Int : 493 ms POOR DATA QUALITY, INTERPRETATION MAY BE ADVERSELY AFFECTED NORMAL SINUS RHYTHM PROLONGED QT ABNORMAL ECG WHEN COMPARED WITH ECG OF 12-JUN-2019 23:21, NO SIGNIFICANT CHANGE WAS FOUND Confirmed by Michael Moreno MD ([id number]) on 06/13/2019 12:49:33 PM Referred By: Meghan DUCKWORTH Confirmed By:Michael Moreno MD
--- NOTE | 2019-06-13 12:51 | EKG ---
Test Reason : Blood Pressure : / mmHG Vent. Rate : 093 BPM Atrial Rate : 093 BPM P-R Int : 128 ms QRS Dur : 082 ms QT Int : 370 ms P-R-T Axes : 076 054 071 degrees QTc Int : 460 ms NORMAL SINUS RHYTHM POSSIBLE LEFT ATRIAL ENLARGEMENT BORDERLINE ECG NO PREVIOUS ECGS AVAILABLE Confirmed by Michael Moreno MD ([id number]) on 06/13/2019 12:51:26 PM Referred By: Confirmed By:Michael Moreno MD
[2019-06-13] MEDS ORDERED: VANCOMYCIN 1 GM in D5W (PRE-DOCKED) 1,000 MG/250 ML IVPB SCH (13:00)
[2019-06-13] MEDS ORDERED: DEXTROSE 5%-WATER 100 ML IVPB ONE (13:06)
[2019-06-13] MEDS ORDERED: PIPERACILLIN/TAZOBACTAM 4.5 GM VIAL IVPB ONE (13:06)
--- NOTE | 2019-06-13 13:48 | CONSULT ---
Consult Consult Specialty:: Infectious Disease Referred by:: Dr Rangel Reason for Consultation:: Sepsis - History of Present Illness Chief Complaint: S/p cardiac arrest x1 day History of Present Illness: Pt is a 53 yo F with osteogenesis imperfecta, ASD, COPD, chronic respiratory failure on trach, wedge compression T2, s/p PRG, brought in from [facility] after she was found pale and non responsive in her room. CPR was started using David and pt said to have achieved ROSC after 2 rounds of CPR without meds in 4 mins. PEA was noted by EMS in the field. No hx was obtainable from pt. Spoke with ICU resident who was in touch by phone with pt's mother. Described pt as able to interact at baseline, was ambulating on her own until about 2 month's ago when she fell and was admitted in [facility] for 1 month. Pt was trached after failing extubation post surgery. She was transferred to [facility] for rehab and has been in [facility] for 1 month where she was being transitioned to only night time ventilator use. Pt's mother reported pt noted to have pointed at her lower extremities about a week ago, possibly indicating pain/ discomfort and pt's mother saw the patient yesterday prior to the arrest, and noted the pt to have been increasingly lethargic. Pt was started on TTM at 3am 06/13/19, and placed on vanc/zosyn. LA- 13>>5.8 Elevated liver enzymes WBC- 14.5>>24.8 UA-neg Trop - 0.53 CXR- progressive atelectatic/infiltrative changes at bases. AXR: R hip replacement, unfolded aorta, retained stool indicative of constipation. No free air. Head CT: Mild to moderate volume loss and probable mild periventricular chronic microvasc ischemic changes. All: Birch/iodine/lactase - History Source History Provided By: Medical Record, Transfer Record Limitations to Obtaining History: Clinical Condition - Past Medical History Pulmonary: Yes: COPD, O2 Dependent, Other (Chronic Respiratory Failure s/p trach ) Gastrointestinal: Yes: GERD ...: No Musculoskeletal: Yes: Other ( Osteogenesis Imperfecta) - Alcohol/Substance Use Hx Alcohol Use: No History of Substance Use: reports: None - Smoking History Smoking history: Unknown if ever smoked - Social History ADL: Support Services History of Recent Travel: No Home Medications - Allergies Allergies/Adverse Reactions: Allergies Allergy/AdvReac Type Severity Reaction Status Date / Time birch Allergy Severe Rash Verified 06/13/19 00:48 iodine Allergy Severe Rash Verified 06/13/19 00:49 lactase [From Lactrase] Allergy Mild Rash Verified 06/13/19 00:50 - Home Medications Home Medications: Ambulatory Orders Acetaminophen 325 mg PO DAILY 06/13/19 Albuterol 2.5/Ipratropium 0.5 [Duoneb -] 1 puff PO DAILY 06/13/19 Ascorbic Acid [Vitamin C] 500 mg PO DAILY 06/13/19 Bisacodyl 1 gm MC DAILY 06/13/19 Calcium Carbonate - 650 mg PO DAILY 06/13/19 Ciclopirox/Urea/Camph/Men/Euc [Ciclodan 8% Kit] 34.6 ml TP DAILY 06/13/19 Cyclobenzaprine HCl 5 mg PO DAILY 06/13/19 Docusate Sodium 1 gm MC DAILY 06/13/19 Famotidine 20 mg PO DAILY 06/13/19 Fluoxetine HCl [Prozac -] 20 mg PO DAILY 06/13/19 Gabapentin 250 mg PO DAILY 06/13/19 Heparin - 5,000 unit SQ BID 06/13/19 Miconazole Nitrate [Secura Antifungal] 57 gm TP DAILY 06/13/19 Nystatin 1 each MC DAILY 06/13/19 Polyethylene Glycol 3350 [Laxaclear] 1,700 gm PO DAILY 06/13/19 Risperidone 0.25 mg PO DAILY 06/13/19 Senna [place] Extract [Senna] 176 mg PO DAILY 06/13/19 oxyCODONE HCL [Roxicodone -] 5 mg PO Q6H 06/13/19 Family Medical History Family History: Unable to Obtain Review of Systems Unable to obtain ROS, reason: Clinical condition Physical Exam Vital Signs: Vital Signs Temperature 93.5 F L 06/13/19 13:00 Pulse Rate 84 06/13/19 13:00 Respiratory Rate 20 06/13/19 13:00 Blood Pressure 104/85 06/13/19 13:00 O2 Sat by Pulse Oximetry (%) 100 06/13/19 09:00 Constitutional: Yes: Other (Pt off sedation, smacking lips with salivary secretions, on TTM) Eyes: Yes: Other (Taped eyelids, b/l eyes rolled upwards, miotic, slowly reactive) HENT: Yes: Other (Trach to vent- AC-16/350/10/40%) Cardiovascular: Yes: Regular Rate and Rhythm, S1, S2 Respiratory: Yes: Mechanically Ventilated Gastrointestinal: Yes: Hypoactive Bowel Sounds, Other (Gtube in place) Renal/: Yes: Garza Present (Draining clear urine) Edema: No Peripheral Pulses WNL: Yes Labs: CBC, BMP 06/13/19 06:00 06/13/19 06:00 Imaging - Results Chest X-ray: Report Reviewed, Image Reviewed Cat Scan: Report Reviewed, Image Reviewed Assessment/Plan Ambulatory Orders Acetaminophen 325 mg PO DAILY 06/13/19 Albuterol 2.5/Ipratropium 0.5 [Duoneb -] 1 puff PO DAILY 06/13/19 Ascorbic Acid [Vitamin C] 500 mg PO DAILY 06/13/19 Bisacodyl 1 gm MC DAILY 06/13/19 Calcium Carbonate - 650 mg PO DAILY 06/13/19 Ciclopirox/Urea/Camph/Men/Euc [Ciclodan 8% Kit] 34.6 ml TP DAILY 06/13/19 Cyclobenzaprine HCl 5 mg PO DAILY 06/13/19 Docusate Sodium 1 gm MC DAILY 06/13/19 Famotidine 20 mg PO DAILY 06/13/19 Fluoxetine HCl [Prozac -] 20 mg PO DAILY 06/13/19 Gabapentin 250 mg PO DAILY 06/13/19 Heparin - 5,000 unit SQ BID 06/13/19 Miconazole Nitrate [Secura Antifungal] 57 gm TP DAILY 06/13/19 Nystatin 1 each MC DAILY 06/13/19 Polyethylene Glycol 3350 [Laxaclear] 1,700 gm PO DAILY 06/13/19 Risperidone 0.25 mg PO DAILY 06/13/19 Senna Martha Extract [Senna] 176 mg PO DAILY 06/13/19 oxyCODONE HCL [Roxicodone -] 5 mg PO Q6H 06/13/19 Current Medications Albuterol/Ipratropium (Duoneb -) 1 amp NEB RQID [facility] Last Admin: 06/13/19 12:28 Dose: 1 amp Chlorhexidine Gluconate (Hibiclens For Decolonization -) 1 applic TP HS JUAN ALBERTO Heparin Sodium (Porcine) (Heparin -) 5,000 unit SQ TID [facility] ALBERT[facility] Last Admin: 06/13/19 14:00 Dose: 5,000 unit Sodium Chloride (Normal Saline -) 1,000 mls @ 125 mls/hr IV ASDIR [facility]UAN ALBERTO Last Admin: 06/13/19 03:06 Dose: 125 mls/hr Piperacillin Sod/Tazobactam (Sod 3.375 gm/ Dextrose) 50 mls @ 100 mls/hr IVPB Q8H-IV JUAN ALBERTO; Protocol Mupirocin (Bactroban Ointment (For Decolonization) -) 1 applic NS BID [facility]UAN ALBERTO Stop: 06/18/19 09:59 Last Admin: 06/13/19 14:45 Dose: 1 applic Assessemnt/Plan: Pt is a 53 yo F with osteogenesis imperfecta, ASD, COPD, chronic respiratory failure on trach, wedge compression T2, s/p PEG, brought in from [facility] after she was found pale and non responsive in her room. CPR was started using David and pt said to have achieved ROSC after 2 rounds of CPR without meds in 4 min osteogenesis imperfecta, ASD, COPD, chronic respiratory failure on trach, wedge compression T2, s/p PEG, [facility] for 1 month Hospitalization at [facility] 2 months ago Transaminitis- possibly shock liver Elevated trops Lactic acidosis Leukocytosis Possible Aspiration PNA Possible sepsis secondary to Aspiration PNA s/p cardiorespiratory arrest Plan: Cont zosyn 3.375 Hold vanc for now Pending bcx, Ucx Sputum cx Cont other mx per ICU/primary team D/W Dr Fito Ventura MD PGY 3 Infectious Disease rotation Visit type - Emergency Visit Emergency Visit: Yes ED Registration Date: 06/13/19 Care time: The patient presented to the Emergency Department on the above date and was hospitalized for further evaluation of their emergent condition. - New Patient This patient is new to me today: Yes Date on this admission: 06/13/19 - Critical Care Critical Care patient: Yes Total Critical Care Time (in minutes): 29 ATTENDING PHYSICIAN STATEMENT I saw and evaluated the patient. I reviewed the resident's note and discussed the case with the resident. I agree with the resident's findings and plan as documented. SUBJECTIVE: OBJECTIVE: ASSESSMENT AND PLAN:
[2019-06-13] MEDS: HEPARIN NA (PORCINE) 5,000 UNITS/ML 1ML VIAL SQ SCH ×2 (14:00→21:03)
[2019-06-13] MEDS: MUPIROCIN 2% TOPICAL OINTMENT FOR DECOLONIZATION NS SCH ×2 (14:45→21:05)
--- NOTE | 2019-06-13 14:50 | PN ---
Physical Exam: SUBJECTIVE: Patient seen and examined at bedside. pt is intubated. pt is not sedated but is unresponsive. spoke with pt's mother on the phone who stated that yesterday prior to the cardiac arrest she was with her daughter at [facility]. she states that her daughter was more lethargic than usual. last week her daughter was at her new baseline , she interacts and expresses herself through pointing. 2 months ago pt sustained a fall, was hospitalized at ICU at [facility] and since then has deteriorated. there, pt was trached. pt was at rehab at [facility]. there, she only required vent use at night. mother stated that last week pt expressed some leg discomfort. OBJECTIVE: Vital Signs Period Temp Pulse Resp BP Sys/Oliva Pulse Ox Last 24 Hr 91.8 F-97.5 F 67-115 12-20 101-154/52-98 95-100 GENERAL: The patient is non responsive and trached to vent, smacking lips LUNGS: vent sounds equal b/l , clear to auscultation bilaterally, no accessory muscle use. HEART: Regular rate and rhythm, S1, S2 + systolic mumur ABDOMEN: Soft, nontender, nondistended, normoactive bowel sounds, no guarding Laboratory Last Values WBC 25.8 K/mm3 (4.0-10.0) H 06/13/19 06:00 RBC 2.98 M/mm3 (3.60-5.2) L 06/13/19 06:00 Hgb 9.1 GM/dL (10.7-15.3) L 06/13/19 06:00 Hct 29.5 % (32.4-45.2) L 06/13/19 06:00 MCV 99.0 fl (80-96) H 06/13/19 06:00 MCH 30.6 pg (25.7-33.7) 06/13/19 06:00 MCHC 30.9 g/dl (32.0-36.0) L 06/13/19 06:00 RDW 17.3 % (11.6-15.6) H 06/13/19 06:00 Plt Count 295 K/MM3 (134-434) 06/13/19 06:00 MPV 11.2 fl (7.5-11.1) H 06/13/19 06:00 Absolute Neuts (auto) 23.9 K/mm3 (1.5-8.0) H 06/13/19 06:00 Neutrophils % 92.8 % (42.8-82.8) H D 06/13/19 06:00 Neutrophils % (Manual) 86.9 % (42.8-82.8) H 06/13/19 06:00 Band Neutrophils % 2.0 % 06/13/19 06:00 Lymphocytes % 3.4 % (8-40) L D 06/13/19 06:00 Lymphocytes % (Manual) 5.1 % (8-40) L D 06/13/19 06:00 Monocytes % 3.7 % (3.8-10.2) L 06/13/19 06:00 Monocytes % (Manual) 4 % (3.8-10.2) D 06/13/19 06:00 Eosinophils % 0.0 % (0-4.5) D 06/13/19 06:00 Eosinophils % (Manual) 0.0 % (0-4.5) D 06/13/19 06:00 Basophils % 0.1 % (0-2.0) 06/13/19 06:00 Basophils % (Manual) 0.0 % (0-2.0) 06/13/19 06:00 Myelocytes % (Man) 2 % (0-2) D 06/13/19 06:00 Promyelocytes % (Man) 0 % (0-2) 06/13/19 06:00 Blast Cells % (Manual) 0 % (0-0) 06/13/19 06:00 Nucleated RBC % 0 % (0-0) 06/13/19 06:00 Metamyelocytes 0 % (0-2) 06/13/19 06:00 Hypochromia 0 06/13/19 06:00 Platelet Estimate Normal 06/13/19 06:00 Polychromasia 0 06/13/19 06:00 Poikilocytosis 0 06/13/19 06:00 Basophilic Stippling 1+ 06/13/19 06:00 Anisocytosis 1+ 06/13/19 06:00 Microcytosis 1+ 06/13/19 06:00 Macrocytosis 0 06/13/19 06:00 PT with INR 13.20 SEC (9.7-13.0) H 06/13/19 06:00 INR 1.12 (0.83-1.09) H 06/13/19 06:00 PTT (Actin FS) 32.8 SECONDS (25.2-36.5) 06/13/19 06:00 Anticoagulation Therapy No Result Required. 06/13/19 00:20 Puncture Site Left radial 06/13/19 00:20 ABG pH 7.33 (7.35-7.45) L 06/13/19 00:20 ABG pCO2 at Pt Temp 46.0 mmHg (35-45) H 06/13/19 00:20 ABG pO2 at Pt Temp 176 mmHg (80-100) H 06/13/19 00:20 ABG HCO3 23.5 mmol/L (22-27) 06/13/19 00:20 ABG O2 Sat (Measured) 99.4 % (95-98) H 06/13/19 00:20 ABG O2 Content 13.3 % vol 06/13/19 00:20 ABG Base Excess -1.9 meq/l (-2-2) 06/13/19 00:20 Jacob Test Positive 06/13/19 00:20 Carboxyhemoglobin 1.2 % (0-2) 06/13/19 00:20 Methemoglobin < 1.0 % (0-2) 06/13/19 00:20 O2 Delivery Device Vent 06/13/19 00:20 Oxygen Flow Rate 50% 06/13/19 00:20 Vent Mode A/c 06/13/19 00:20 Vent Rate 16 06/13/19 00:20 Mechanical Rate Yes 06/13/19 00:20 PEEP 5.0 cmH2O 06/13/19 00:20 Pressure Support Vent 350 06/13/19 00:20 Sodium 139 mmol/L (136-145) 06/13/19 06:00 Potassium 4.3 mmol/L (3.5-5.1) 06/13/19 06:00 Chloride 100 mmol/L (98-107) 06/13/19 06:00 Carbon Dioxide 31 mmol/L (21-32) 06/13/19 06:00 Anion Gap 7 MMOL/L (8-16) L 06/13/19 06:00 BUN 29.4 mg/dL (7-18) H 06/13/19 06:00 Creatinine 0.4 mg/dL (0.55-1.3) L 06/13/19 06:00 Est GFR (CKD-EPI)AfAm 135.90 06/13/19 06:00 Est GFR (CKD-EPI)NonAf 117.26 06/13/19 06:00 Random Glucose 139 mg/dL (74-106) H 06/13/19 06:00 Lactic Acid 5.8 mmol/L (0.4-2.0) H* 06/13/19 09:30 Calcium 8.4 mg/dL (8.5-10.1) L 06/13/19 06:00 Phosphorus 3.3 mg/dL (2.5-4.9) 06/13/19 06:00 Magnesium 1.8 mg/dL (1.8-2.4) 06/13/19 06:00 Iron 25 ug/dL (50-175) L 06/13/19 06:00 TIBC 206 ug/dL (250-450) L 06/13/19 06:00 Iron Saturation 12 % (17.5-39) L 06/13/19 06:00 Unsaturated IBC 181 ug/dL (200-275) L 06/13/19 06:00 Total Bilirubin 0.3 mg/dL (0.2-1) 06/13/19 06:00 AST 249 U/L (15-37) H 06/13/19 06:00 ALT 288 U/L (13-61) H 06/13/19 06:00 Alkaline Phosphatase 368 U/L (45-117) H 06/13/19 06:00 Creatine Kinase 98 U/L (26-192) 06/12/19 23:35 Troponin I 0.53 ng/ml (0.00-0.05) H 06/13/19 09:30 Total Protein 6.9 g/dl (6.4-8.2) 06/13/19 06:00 Albumin 2.3 g/dl (3.4-5.0) L 06/13/19 06:00 Urine Color Yellow 06/13/19 00:50 Urine Appearance Cloudy 06/13/19 00:50 Urine pH 6.0 (5.0-8.0) 06/13/19 00:50 Ur Specific [place] 1.013 (1.010-1.035) 06/13/19 00:50 Urine Protein 2+ (NEGATIVE) H 06/13/19 00:50 Urine Glucose (UA) 1+ (NEGATIVE) H 06/13/19 00:50 Urine Ketones Negative (NEGATIVE) 06/13/19 00:50 Urine Blood 1+ (NEGATIVE) H 06/13/19 00:50 Urine Nitrite Negative (NEGATIVE) 06/13/19 00:50 Urine Bilirubin Negative (NEGATIVE) 06/13/19 00:50 Urine Urobilinogen 0.2 mg/dL (0.2-1.0) 06/13/19 00:50 Ur Leukocyte Esterase Negative (NEGATIVE) 06/13/19 00:50 Urine WBC (Auto) 6 /hpf (0-5) 06/13/19 00:50 Urine RBC (Auto) 1 /hpf (0-4) 06/13/19 00:50 Urine Casts (Auto) 10 /lpf (0-8) 06/13/19 00:50 U Epithel Cells (Auto) 6.9 /HPF (0-5/HPF) 06/13/19 00:50 U Sm Round Cell (Auto) 0.9 06/13/19 00:50 Urine Bacteria (Auto) 107.4 /hpf (NEGATIVE) 06/13/19 00:50 Blood Type A NEGATIVE 06/13/19 06:25 Antibody Screen Negative 06/13/19 00:00 Current Medications Albuterol/Ipratropium (Duoneb -) 1 amp NEB RQID [facility] Last Admin: 06/13/19 12:28 Dose: 1 amp Chlorhexidine Gluconate (Hibiclens For Decolonization -) 1 applic TP HS [facility] Heparin Sodium (Porcine) (Heparin -) 5,000 unit SQ TID [facility] Last Admin: 06/13/19 14:00 Dose: 5,000 unit Sodium Chloride (Normal Saline -) 1,000 mls @ 125 mls/hr IV ASDIR [facility] Last Admin: 06/13/19 03:06 Dose: 125 mls/hr Piperacillin Sod/Tazobactam (Sod 3.375 gm/ Dextrose) 50 mls @ 100 mls/hr IVPB Q8H-IV [facility]UAN ALBERTO; Protocol Mupirocin (Bactroban Ointment (For Decolonization) -) 1 applic NS BID [facility] Stop: 10/20/19 09:59 CT head: [id number] volume loss and probable mild periventricular chronic microvascular ischemic disease changes. No gross CT evidence of acute intracranial pathology is identified. Correlate clinically to determine further evaluation and follow-up. The ovaries with secretion are layering in the posterior aspect of the nasal cavity and nasopharynx. Correlate clinically. Postop changes posterior to the included upper cervical spine with questionable partially included a cystic bone density in C2 for which further evaluation is needed Abdomen KUB: Single view of the abdomen reveals a previous right hip replacement with extensive hardware, heterotopic bone, old pelvic trauma, gabby stabilizing the thoracolumbar spine, right upper quadrant clips, large heart, unfolded aorta and some atelectasis at the right base. There is retained stool. This is compatible with constipation. There is no sign of free air. In view of the patient's history of hard abdominal distention, further imaging with CT is suggested ASSESSMENT/PLAN: 53 yo F with a PMH of Osteogenesis Imperfecta, COPD, Chronic Respiratory Failure s/p Trach, Autism Spectrum Disorder, Wedge Compression Fracture of T2 who presented to [facility] from [facility] 2/2 cardiac arrest s/p rosc. NEURO- Autism Spectrum d/o.,Acute encephalopathy -Pt s/p Cardiac arrest. Pt not at baseline -CT Head -Neuro Consult -c/w Risperidone ID- Sepsis 2/2 unclear source of infection -lactic downtrending 13.8, trend. WBC 15.5, HR 115 -S/p Vanc/Zosyn -ID Consult -Cont zosyn 3.375 -Hold vanc for now -Pending bcx, Ucx, Sputum cx CARDIO-S/p Cardiac Arrest likely 2/2 respiratory arrest -Cardiac arrest s/p ROSC ~4 min - initiated Hypothermia protocol. start rewarming at 3am -c/w cardiac monitoring -Cardio consult -trend trops to peak -no sig ischemia on ekg, will rpt ekg -echo reviewed. LVEF 65% -1st set of cardiac enzymes were wnl with normal CK and troponin level -2nd troponin mildly elevated, no CK level done, does not appear c/w with Type 1 [place] Pulm: trach to vent -LE duplex to r/o DVT GI: transaminitis likely 2/2 shock -improving -abdomen u/s F/E/N NS@125cc/hr Monitor Electrolytes NPO Dispo: continue ICU monitoring Visit type - Emergency Visit Emergency Visit: No - New Patient This patient is new to me today: Yes Date on this admission: 06/13/19 - Critical Care Critical Care patient: Yes Total Critical Care Time (in minutes): 36 Critical Care Statement: The care of this patient involved high complexity decision making to prevent further life threatening deterioration of the patient 's condition and/or to evaluate & treat vital organ system(s) failure or risk of failure. ATTENDING PHYSICIAN STATEMENT I saw and evaluated the patient. I reviewed the resident's note and discussed the case with the resident. I agree with the resident's findings and plan as documented. SUBJECTIVE: OBJECTIVE: ASSESSMENT AND PLAN:
--- NOTE | 2019-06-13 14:53 | ECHO ---
Version: 1 Name: KAREN VINES Exam: Adult Echocardiogram Study Date: 06/13/2019, 12:30 PM Age: 53 Years MMode/2D Measurements & Calculations IVSd: 0.98 cm LVIDs: 2.31 cm LVIDd: 3.1 cm LVPWd: 0.95 cm LVOT diam: 2.14 cm Ao root diam: 3.0 cm LA dimension: 2.31 cm Doppler Measurements & Calculations MV E max alfonso: 68.1 cm/sec Med E/e': 13.8 MV A max alfonso: 77.0 cm/sec Med Peak E' Alfonso: 4.9 cm/sec MV E/A: 0.88 Lat E/e': 7.3 Lat Peak E' Alfonso: 9.3 cm/sec Ao max P.1 mmHg Ao V2 max: 123.8 cm/sec TR max alfonso: 286.4 cm/sec TR max P.8 mmHg Procedure The study was technically limited with all images being suboptimal in quality. Left Ventricle The left ventricular size, thickness and function are normal. Ejection Fraction = 65%. Left Ventricu lar Filling pattern is normal for age. Right Ventricle The right ventricle is normal in size and function. Atria Normal left and right atrial size and function. Mitral Valve The mitral valve is normal in structure and function. There is trace mitral regurgitation. Tricuspid Valve The tricuspid valve is normal in structure and function. There is trace tricuspid regurgitation. Aortic Valve The aortic valve is normal in structure and function. Pulmonic Valve The pulmonic valve is not well visualized. Mild pulmonic valvular regurgitation. Great Vessels The aortic root is normal size. Normal aortic arch, descending and ascending aorta. Pericardium/Pleura There is no pericardial effusion. Summary Statements The study was technically limited with all images being suboptimal in quality. The left ventricular size, thickness and function are normal Ejection Fraction = 65%. Left Ventricular Filling pattern is normal for age. The right ventricle is normal in size and function. Normal left and right atrial size and function. The mitral valve is normal in structure and function. There is trace mitral regurgitation. The tricuspid valve is normal in structure and function. There is trace tricuspid regurgitation. The aortic valve is normal in structure and function. The pulmonic valve is not well visualized. Mild pulmonic valvular regurgitation. The aortic root is normal size. Normal aortic arch, descending and ascending aorta There is no pericardial effusion. Richard Ochoag 06/13/2019, 1:52 PM Ordering Physician: Dani Valdivia Referring Physician: ARVIND VALDIVIA Performed By: Lenora Sneed
--- NOTE | 2019-06-13 15:25 | PN ---
Teaching Attending Note Name of Resident: Leigh Ann Ventura ATTENDING PHYSICIAN STATEMENT I saw and evaluated the patient. I reviewed the resident's note and discussed the case with the resident. I agree with the resident's findings and plan as documented. SUBJECTIVE: OBJECTIVE: ASSESSMENT AND PLAN: S/P CARDIAC ARREST R/O ASP PNEUMONIA CHRONIC RESP FAILURE LEUKOCYTOSIS LACTIC ACIDOSIS AWAIT C/S EMPIRIC ZOSYN
[2019-06-13 17:44] LABS: ARTERIAL BLD GAS O2 SATURATION 99.3 % (95-98); ARTERIAL BLOOD GAS BASE EXCESS 3.3 meq/l (-2-2); ARTERIAL BLOOD GAS PCO2 47.3 mmHg (35-45); ARTERIAL BLOOD GAS PO2 139 mmHg (80-100); ARTERIAL BLOOD GAS pH 7.39 (7.35-7.45)
[2019-06-13] MEDS ORDERED: PIPERACILLIN/TAZOBACTAM 3.375 GM VIAL IVPB ONE (17:50)
[2019-06-13] MEDS ORDERED: DEXTROSE 5%-WATER - 50 ML IVPB ONE (17:50)
[2019-06-13 17:56] LABS: ALLENS TEST POSITIVE
[2019-06-13] MEDS: PIPERACILLIN/TAZOB 3.375 GM 3.375 GM in DEXTROSE 5%-WATER - 50 ML IVPB SCH (18:03)
--- NOTE | 2019-06-13 18:19 | CON.GI ---
Consult Consult Specialty:: GI Referred by:: Shellie Dangelo NP Reason for Consultation:: Elevated LFTs - History of Present Illness History of Present Illness: Patient is a 53 y/o female with past medical history of Osteogenis Imperfecta, COPD, Chronic Respiratoy Failure s/ trach, Autism, Wedge Compression Fracture T2. Consult was placed due to labs showing elevated LFTs. Patient is s/p Cardiac Arrest. History received from medical record due to patient being intubated and sedated. - History Source History Provided By: Medical Record Limitations to Obtaining History: Clinical Condition - Past Medical History Pulmonary: Yes: COPD, O2 Dependent, Other (Chronic Respiratory Failure s/p trach ) Gastrointestinal: Yes: GERD ...: No Musculoskeletal: Yes: Other ( Osteogenesis Imperfecta) - Alcohol/Substance Use Hx Alcohol Use: No History of Substance Use: reports: None - Smoking History Smoking history: Unknown if ever smoked - Social History ADL: Support Services History of Recent Travel: No Home Medications - Allergies Allergies/Adverse Reactions: Allergies Allergy/AdvReac Type Severity Reaction Status Date / Time birch Allergy Severe Rash Verified 06/13/19 00:48 iodine Allergy Severe Rash Verified 06/13/19 00:49 lactase [From Lactrase] Allergy Mild Rash Verified 06/13/19 00:50 - Home Medications Home Medications: Ambulatory Orders Acetaminophen 325 mg PO DAILY 06/13/19 Albuterol 2.5/Ipratropium 0.5 [Duoneb -] 1 puff PO DAILY 06/13/19 Ascorbic Acid [Vitamin C] 500 mg PO DAILY 06/13/19 Bisacodyl 1 gm MC DAILY 06/13/19 Calcium Carbonate - 650 mg PO DAILY 06/13/19 Ciclopirox/Urea/Camph/Men/Euc [Ciclodan 8% Kit] 34.6 ml TP DAILY 06/13/19 Cyclobenzaprine HCl 5 mg PO DAILY 06/13/19 Docusate Sodium 1 gm MC DAILY 06/13/19 Famotidine 20 mg PO DAILY 06/13/19 Fluoxetine HCl [Prozac -] 20 mg PO DAILY 06/13/19 Gabapentin 250 mg PO DAILY 06/13/19 Heparin - 5,000 unit SQ BID 06/13/19 Miconazole Nitrate [Secura Antifungal] 57 gm TP DAILY 06/13/19 Nystatin 1 each MC DAILY 06/13/19 Polyethylene Glycol 3350 [Laxaclear] 1,700 gm PO DAILY 06/13/19 Risperidone 0.25 mg PO DAILY 06/13/19 Senna [place] Extract [Senna] 176 mg PO DAILY 06/13/19 oxyCODONE HCL [Roxicodone -] 5 mg PO Q6H 06/13/19 Family Medical History Family History: Unable to Obtain Review of Systems Unable to obtain ROS, reason: due to clinical condition Physical Exam-GI Vital Signs: Vital Signs Temperature 93.8 F L 06/13/19 17:00 Pulse Rate 81 06/13/19 17:00 Respiratory Rate 18 06/13/19 17:00 Blood Pressure 108/95 06/13/19 17:00 O2 Sat by Pulse Oximetry (%) 100 06/13/19 09:00 Constitutional: Yes: No Distress HENT: Yes: Atraumatic Cardiovascular: Yes: Regular Rate and Rhythm Respiratory: Yes: Regular, CTA Bilaterally Gastrointestinal Inspection: Yes: WNL. No: Ascites, Distention, Hernia, Scars, Other ...Auscultate: Yes: Normoactive Bowel Sounds. No: Hyperactive Bowel Sounds, Hypoactive Bowel Sounds, No Bowel Sounds, Other ...Palpate: Yes: Soft. No: Firm/Rigid, Guarding, Hepatomegaly, Mass, Pulsatile Mass, Splenomegaly, Tenderness, Tenderness, Epigastium, Tenderness, Rebound, Other ...Percussion: Yes: Tympanitic. No: Dullness, Fluid Wave, Other Neurological: Yes: Other (sedated) Labs: CBC, BMP 06/13/19 06:00 06/13/19 06:00 INR, PTT INR 1.12 (0.83-1.09) H 06/13/19 06:00 Problem List - Problems (1) Transaminitis Code(s): R74.0 - NONSPEC ELEV OF LEVELS OF TRANSAMNS & LACTIC ACID DEHYDRGNSE
[2019-06-13] MEDS ORDERED: CHLORHEXIDINE GLUCONATE 4% CLEANSER FOR DECOLONIZATION TP SCH (22:00)
[2019-06-14] MEDS ORDERED: DEXTROSE 5%-WATER - 50 ML IVPB ONE ×3 (00:42→17:42)
[2019-06-14] MEDS ORDERED: PIPERACILLIN/TAZOBACTAM 3.375 GM VIAL IVPB ONE ×3 (00:42→17:42)
[2019-06-14] MEDS: PIPERACILLIN/TAZOB 3.375 GM 3.375 GM in DEXTROSE 5%-WATER - 50 ML IVPB SCH ×2 (01:03→09:00)
[2019-06-14] MEDS: HEPARIN NA (PORCINE) 5,000 UNITS/ML 1ML VIAL SQ SCH ×2 (05:58→14:05)
[2019-06-14] MEDS: SODIUM CHLORIDE 1,000 ML IV SCH (05:59)
[2019-06-14 06:01] LABS: ARTERIAL BLD GAS O2 SATURATION 99.5 % (95-98); ARTERIAL BLOOD GAS BASE EXCESS 2.2 meq/l (-2-2); ARTERIAL BLOOD GAS PCO2 43.1 mmHg (35-45); ARTERIAL BLOOD GAS PO2 152 mmHg (80-100); ARTERIAL BLOOD GAS pH 7.41 (7.35-7.45)
[2019-06-14 06:08] LABS: ALLENS TEST POSITIVE
[2019-06-14 06:53] LABS: HEMATOCRIT 25.1 % (32.4-45.2); HEMOGLOBIN 8.2 GM/dL (10.7-15.3); LYMPH % 3.6 % (8-40); MCH 31.8 pg (25.7-33.7); MCHC 32.7 g/dl (32.0-36.0); MEAN PLT VOLUME 11.1 fl (7.5-11.1); MONO % 3.7 % (3.8-10.2); NEUT % 92.7 % (42.8-82.8); PLATELET COUNT 228 K/MM3 (134-434); RBC 2.59 M/mm3 (3.60-5.2); RDW 17.4 % (11.6-15.6); WHITE BLOOD COUNT 24.8 K/mm3 (4.0-10.0)
[2019-06-14 07:29] LABS: BILIRUBIN,TOTAL 0.3 mg/dL (0.2-1); BLOOD UREA NITROGEN 23.4 mg/dL (7-18); CALCIUM 8.3 mg/dL (8.5-10.1); CREATININE 0.2 mg/dL (0.55-1.3); MAGNESIUM 1.5 mg/dL (1.8-2.4); PHOSPHOROUS 2.2 mg/dL (2.5-4.9); TOT PROT 5.7 g/dl (6.4-8.2)
--- NOTE | 2019-06-14 07:47 | PN.GI ---
GI Progress Note Subjective: This morning labs reviewed and show downtrend in LFTs. Abdominal US reviewed and shows mild CBD dilatation at 0.8cm. As per RN no reports of vomiting, diarrhea, constipation, rectal bleeding, melena. - Objective Vital Signs: Vital Signs Temperature 98.6 F 06/14/19 06:00 Pulse Rate 89 06/14/19 06:00 Respiratory Rate 14 06/14/19 06:00 Blood Pressure 110/93 06/14/19 06:00 O2 Sat by Pulse Oximetry (%) 98 06/13/19 20:36 Constitutional: No Distress, Calm Eyes: Yes: Conjunctiva Clear HENT: Yes: Atraumatic Cardiovascular: Yes: Tachycardia Respiratory: Yes: Regular, Mechanically Ventilated, Rhonchi Gastrointestinal Inspection: Yes: Scars, Other (G tube). No: Ascites, Distention, Hernia ...Auscultate: Yes: Normoactive Bowel Sounds. No: Hyperactive Bowel Sounds, Hypoactive Bowel Sounds, No Bowel Sounds, Other ...Palpate: Yes: Soft. No: Firm/Rigid, Guarding, Hepatomegaly, Mass, Pulsatile Mass, Splenomegaly, Tenderness, Tenderness, Epigastium, Tenderness, Rebound, Other ...Percussion: Yes: Tympanitic. No: Dullness, Fluid Wave, Other Labs: CBC, BMP 06/14/19 05:44 06/14/19 05:54 INR, PTT INR 1.12 (0.83-1.09) H 06/13/19 06:00 Problem List - Problems (1) Transaminitis Assessment/Plan: >LFTs elevated secondary to hepatic ischemia >continue IV hydration Code(s): R74.0 - NONSPEC ELEV OF LEVELS OF TRANSAMNS & LACTIC ACID DEHYDRGNSE
[2019-06-14] MEDS: ALBUTEROL SO4 2.5/IPRATROPIUM 0.5 INH SOL 3 ML VIAL.NEB. NEB SCH ×4 (08:12→20:15)
[2019-06-14] MEDS: KCL 10 MEQ IVPB 10 MEQ/100 ML INFUS.BAG IVPB SCH ×3 (08:45→12:06)
[2019-06-14] MEDS ORDERED: PIPERACILLIN/TAZOB 2.25 GM 2.25 GM in DEXTROSE 5%-WATER - 50 ML IVPB SCH (09:00)
--- NOTE | 2019-06-14 09:05 | PN ---
Progress Note, Physician - Current Medication List Current Medications: Active Medications Albuterol/Ipratropium (Duoneb -) 1 amp NEB RQID [facility] Last Admin: 06/14/19 08:12 Dose: 1 amp Chlorhexidine Gluconate (Hibiclens For Decolonization -) 1 applic TP HS [facility] Last Admin: 06/13/19 21:05 Dose: 1 applic Heparin Sodium (Porcine) (Heparin -) 5,000 unit SQ TID [facility] Last Admin: 06/14/19 05:58 Dose: 5,000 unit Sodium Chloride (Normal Saline -) 1,000 mls @ 125 mls/hr IV ASDIR [facility]ERTO Last Admin: 06/14/19 05:59 Dose: 125 mls/hr Piperacillin Sod/Tazobactam (Sod 3.375 gm/ Dextrose) 50 mls @ 100 mls/hr IVPB Q8H-IV [facility]UAN ALBERTO; Protocol Last Admin: 06/14/19 01:03 Dose: 100 mls/hr Potassium Chloride (Potassium Chloride 10 Meq Premix Ivpb -) 10 meq in 100 mls @ 100 mls/hr IVPB Q60M [facility] Stop: 06/14/19 11:44 Mupirocin (Bactroban Ointment (For Decolonization) -) 1 applic NS BID [facility] Stop: 06/18/19 09:59 Last Admin: 06/13/19 21:05 Dose: 1 applic - Objective Vital Signs: Vital Signs Temperature 98.6 F 06/14/19 06:00 Pulse Rate 100 H 06/14/19 08:10 Respiratory Rate 16 06/14/19 08:10 Blood Pressure 95/63 06/14/19 08:00 O2 Sat by Pulse Oximetry (%) 103 H 06/14/19 08:10 Labs: CBC, BMP 06/14/19 05:44 06/14/19 05:54 INR, PTT INR 1.12 (0.83-1.09) H 06/13/19 06:00 Problem List - Problems (1) Cardiac arrest Assessment/Plan: Continue cardiac monitoring Maintain MAP > 65 Cardio on board Code(s): R74.0 - NONSPEC ELEV OF LEVELS OF TRANSAMNS & LACTIC ACID DEHYDRGNSE (6) Osteogenesis imperfecta Code(s): Q78.0 - OSTEOGENESIS IMPERFECTA (7) GERD (gastroesophageal reflux disease) Assessment/Plan: Continue PPI Code(s): K21.9 - GASTRO-ESOPHAGEAL REFLUX DISEASE WITHOUT ESOPHAGITIS (8) Autism disorder Code(s): F84.0 - AUTISTIC DISORDER Code(s): I46.9 - CARDIAC ARREST, CAUSE UNSPECIFIED (2) Sepsis Assessment/Plan: Severe Sepsis Blood Cultures- Microbiology 06/13/19 00:50 Urine - Urine Clean Catch Urine Culture - Final NO GROWTH OBTAINED 06/12/19 23:30 Blood - Peripheral Venous Blood Culture - Preliminary NO GROWTH OBTAINED AFTER 24 HOURS, INCUBATION TO CONTINUE FOR 4 DAYS. 06/12/19 23:30 Blood - Peripheral Venous Blood Culture - Preliminary NO GROWTH OBTAINED AFTER 24 HOURS, INCUBATION TO CONTINUE FOR 4 DAYS. maybe aspiration pna Vancomycin and Zosyn Appreciate ID consult Monitor CBC, BMP Chest Xray image- reviewed Code(s): A41.9 - SEPSIS, UNSPECIFIED ORGANISM (3) Autism disorder Code(s): F84.0 - AUTISTIC DISORDER (4) COPD (chronic obstructive pulmonary disease) Assessment/Plan: on mechanical ventilator via trach Appreciate Pulmonology consult Chest Xray image- reviewed Code(s): J44.9 - CHRONIC OBSTRUCTIVE PULMONARY DISEASE, UNSPECIFIED (5) Chronic respiratory failure with hypoxia and hypercapnia Assessment/Plan: as above Code(s): J96.11 - CHRONIC RESPIRATORY FAILURE WITH HYPOXIA; J96.12 - CHRONIC RESPIRATORY FAILURE WITH HYPERCAPNIA (6) Transaminitis Assessment/Plan: US noted Hepatitis A+B panel, Hep C profile, IGG immunoglobulin, Fe + TIBC- pending Avoid Hepatotoxic drugs Monitor BMP Appreciate GI consult Code(s): R74.0 - NONSPEC ELEV OF LEVELS OF TRANSAMNS & LACTIC ACID DEHYDRGNSE
[2019-06-14 09:55] LABS: ANISOCYTOSIS 1+; MACROCYTOSIS 0; PLATELET ESTIMATE NORMAL
--- NOTE | 2019-06-14 09:55 | PN ---
Physical Exam: SUBJECTIVE: Patient seen and examined. Off TTM, now warmed. No fevers. CXR with new b/l opacities, indicative of progressive congestive changes, with pleural fluid, atelectasis/infiltrate. US showed CBD dilation 0.8cm, with R pleural effusion. Lactic acidosis resolved OBJECTIVE: Vital Signs Period Temp Pulse Resp BP Sys/Oliva Pulse Ox Last 24 Hr 91.8 F-98.6 F 67-102 14-26 90-154/53-101 98-103 Vital Signs Temp 98.3 F 06/14/19 09:34 Pulse 102 H 06/14/19 09:43 Resp 18 06/14/19 09:43 BP 116/74 06/14/19 09:43 Pulse Ox 103 H 06/14/19 08:10 Intake & Output 06/13/19 06/13/19 06/14/19 11:59 23:59 11:59 Intake Total 500 1600 1500 Output Total 200 750 300 Balance 465 922 4583 Weight 52.889 kg 53.479 kg Intake: IV 500 1250 1500 Normal Saline - 1,000 ml 500 1250 1500 @ 125 mls/hr IV ASDIR JUAN ALBERTO Rx#:[id number] IVPB 350 Output: Urine 200 750 300 Garza 200 750 300 Other: Voiding Method Indwelling Catheter Indwelling Catheter Indwelling Catheter Bowel Movement No No Height 1.52 m Body Mass Index (BMI) 22.7 Weight Measurement Method [facility] GENERAL: The patient is not sedated, salivary secretions dripping down mouth, lip movements HEAD: Normal with no signs of trauma. EYES: eyelids taped shut, bluish sclera, Pupils reactive b/l ENT:Trach to vent AC-16/350/40/10 NECK: Trach LUNGS: Rhonchorous HEART: Tachycardic, S1, S2 without murmur ABDOMEN: Soft, Gtube in place EXTREMITIES: 2+ pulses, warm, well-perfused, no edema, SCDS in place. NEUROLOGICAL: Not sedated, not responsive to name, spontaneous mouth movements SKIN: Warm, dry, normal turgor, no rashes or lesions noted CBCD WBC 24.8 K/mm3 (4.0-10.0) H 06/14/19 05:44 RBC 2.59 M/mm3 (3.60-5.2) L 06/14/19 05:44 Hgb 8.2 GM/dL (10.7-15.3) L 06/14/19 05:44 Hct 25.1 % (32.4-45.2) L 06/14/19 05:44 MCV 97.0 fl (80-96) H 06/14/19 05:44 MCHC 32.7 g/dl (32.0-36.0) 06/14/19 05:44 RDW 17.4 % (11.6-15.6) H 06/14/19 05:44 Plt Count 228 K/MM3 (134-434) D 06/14/19 05:44 MPV 11.1 fl (7.5-11.1) 06/14/19 05:44 CMP Sodium 141 mmol/L (136-145) 06/14/19 05:54 Potassium 3.0 mmol/L (3.5-5.1) L 06/14/19 05:54 Chloride 104 mmol/L (98-107) 06/14/19 05:54 Carbon Dioxide 28 mmol/L (21-32) 06/14/19 05:54 Anion Gap 10 MMOL/L (8-16) 06/14/19 05:54 BUN 23.4 mg/dL (7-18) H 06/14/19 05:54 Creatinine 0.2 mg/dL (0.55-1.3) L 06/14/19 05:54 Random Glucose 94 mg/dL (74-106) 06/14/19 05:54 Calcium 8.3 mg/dL (8.5-10.1) L 06/14/19 05:54 Total Bilirubin 0.3 mg/dL (0.2-1) 06/14/19 05:54 AST 117 U/L (15-37) H 06/14/19 05:54 ALT 172 U/L (13-61) H 06/14/19 05:54 Alkaline Phosphatase 265 U/L (45-117) H 06/14/19 05:54 Total Protein 5.7 g/dl (6.4-8.2) L 06/14/19 05:54 Albumin 2.0 g/dl (3.4-5.0) L 06/14/19 05:54 CARDIAC ENZYMES Creatine Kinase 196 U/L (26-192) H 06/13/19 16:00 Troponin I 0.26 ng/ml (0.00-0.05) H 06/13/19 16:00 ABG Results ABG pH 7.41 (7.35-7.45) 06/14/19 05:40 ABG pCO2 at Pt Temp 43.1 mmHg (35-45) 06/14/19 05:40 ABG pO2 at Pt Temp 152 mmHg (80-100) H 06/14/19 05:40 ABG HCO3 26.5 mmol/L (22-27) 06/14/19 05:40 ABG O2 Sat (Measured) 99.5 % (95-98) H 06/14/19 05:40 ABG O2 Content 11.3 % vol 06/14/19 05:40 ABG Base Excess 2.2 meq/l (-2-2) H 06/14/19 05:40 Ambulatory Orders Acetaminophen 325 mg PO DAILY 06/13/19 Albuterol 2.5/Ipratropium 0.5 [Duoneb -] 1 puff PO DAILY 06/13/19 Ascorbic Acid [Vitamin C] 500 mg PO DAILY 06/13/19 Bisacodyl 1 gm MC DAILY 06/13/19 Calcium Carbonate - 650 mg PO DAILY 06/13/19 Ciclopirox/Urea/Camph/Men/Euc [Ciclodan 8% Kit] 34.6 ml TP DAILY 06/13/19 Cyclobenzaprine HCl 5 mg PO DAILY 06/13/19 Docusate Sodium 1 gm MC DAILY 06/13/19 Famotidine 20 mg PO DAILY 06/13/19 Fluoxetine HCl [Prozac -] 20 mg PO DAILY 06/13/19 Gabapentin 250 mg PO DAILY 06/13/19 Heparin - 5,000 unit SQ BID 06/13/19 Miconazole Nitrate [Secura Antifungal] 57 gm TP DAILY 06/13/19 Nystatin 1 each MC DAILY 06/13/19 Polyethylene Glycol 3350 [Laxaclear] 1,700 gm PO DAILY 06/13/19 Risperidone 0.25 mg PO DAILY 06/13/19 Senna [place] Extract [Senna] 176 mg PO DAILY 06/13/19 oxyCODONE HCL [Roxicodone -] 5 mg PO Q6H 06/13/19 Current Medications Albuterol/Ipratropium (Duoneb -) 1 amp NEB RQID [facility] Last Admin: 06/14/19 08:12 Dose: 1 amp Chlorhexidine Gluconate (Hibiclens For Decolonization -) 1 applic TP HS [facility] Last Admin: 06/13/19 21:05 Dose: 1 applic Heparin Sodium (Porcine) (Heparin -) 5,000 unit SQ TID [facility] Last Admin: 06/14/19 05:58 Dose: 5,000 unit Sodium Chloride (Normal Saline -) 1,000 mls @ 125 mls/hr IV ASDIR [facility] ALBERTO Last Admin: 06/14/19 05:59 Dose: 125 mls/hr Piperacillin Sod/Tazobactam (Sod 3.375 gm/ Dextrose) 50 mls @ 100 mls/hr IVPB Q8H-IV [facility] ALBERTO; Protocol Last Admin: 06/14/19 01:03 Dose: 100 mls/hr Potassium Chloride (Potassium Chloride 10 Meq Premix Ivpb -) 10 meq in 100 mls @ 100 mls/hr IVPB Q60M [facility] Stop: 06/14/19 11:44 Mupirocin (Bactroban Ointment (For Decolonization) -) 1 applic NS BID [facility] Stop: 06/18/19 09:59 Last Admin: 06/13/19 21:05 Dose: 1 applic Microbiology 06/13/19 00:50 Urine - Urine Clean Catch Urine Culture - Final NO GROWTH OBTAINED 06/12/19 23:30 Blood - Peripheral Venous Blood Culture - Preliminary NO GROWTH OBTAINED AFTER 24 HOURS, INCUBATION TO CONTINUE FOR 4 DAYS. 06/12/19 23:30 Blood - Peripheral Venous Blood Culture - Preliminary NO GROWTH OBTAINED AFTER 24 HOURS, INCUBATION TO CONTINUE FOR 4 DAYS. CXR with congestive changes, inflitrates/atelectasis ASSESSMENT/PLAN: Pt is a 53 yo F with osteogenesis imperfecta, ASD, COPD, chronic respiratory failure on trach, wedge compression T2, s/p PEG, brought in from [facility] after she was found pale and non responsive in her room. CPR was started using David and pt said to have achieved ROSC after 2 rounds of CPR without meds in 4 min osteogenesis imperfecta, ASD, COPD, chronic respiratory failure on trach, wedge compression T2, s/p PEG, [facility] for 1 month Hospitalization at [facility] 2 months ago Transaminitis- possibly shock liver, GI on board Elevated trops, peaked Lactic acidosis, resolved Leukocytosis Possible Aspiration PNA Possible sepsis secondary to Aspiration PNA s/p cardiorespiratory arrest Plan: Cont zosyn 3.375- (06/13/19) Neg bcx, Ucx Sputum cx pending Cont other mx per ICU/primary team D/W Dr Fito Ventura MD PGY 3 Infectious Disease rotation Visit type - Emergency Visit Emergency Visit: Yes ED Registration Date: 06/13/19 Care time: The patient presented to the Emergency Department on the above date and was hospitalized for further evaluation of their emergent condition. - New Patient This patient is new to me today: No - Critical Care Critical Care patient: Yes Total Critical Care Time (in minutes): 29 - Discharge Referral Referred to [facility] Med P.C.: No ATTENDING PHYSICIAN STATEMENT I saw and evaluated the patient. I reviewed the resident's note and discussed the case with the resident. I agree with the resident's findings and plan as documented. SUBJECTIVE: OBJECTIVE: ASSESSMENT AND PLAN:
[2019-06-14] MEDS ORDERED: VANCOMYCIN 1 GM in D5W (PRE-DOCKED) 1,000 MG/250 ML IVPB SCH (10:00)
[2019-06-14] MEDS: MUPIROCIN 2% TOPICAL OINTMENT FOR DECOLONIZATION NS SCH (10:45)
[2019-06-14] MEDS ORDERED: FUROSEMIDE 40 MG/4 ML INJECTABLE VIAL IVPUSH ONE (12:00)
--- NOTE | 2019-06-14 12:02 | PN ---
Teaching Attending Note Name of Resident: Michael Peterson ATTENDING PHYSICIAN STATEMENT I saw and evaluated the patient. I reviewed the resident's note and discussed the case with the resident. I agree with the resident's findings and plan as documented. SUBJECTIVE: Pt seen and examined in the ICU. Hypothermia protocol completed. Some mouth movements but not following commands or tracking movements. OBJECTIVE: Vital Signs Period Temp Pulse Resp BP Sys/Oliva Pulse Ox Last 24 Hr 92.1 F-98.6 F 76-104 14-26 90-154/53-101 98-103 Intake & Output 06/11/19 06/12/19 06/13/19 06/14/19 23:59 23:59 23:59 23:59 Intake Total 2100 1500 Output Total 950 300 Balance 1150 1200 Weight 49.442 kg 52.889 kg 53.479 kg Gen: vented, poorly responsive Heart: RRR Lung: decreased breath sounds at the bases Abd: soft, nontender Ext: + edema CBC, BMP 06/14/19 05:44 06/14/19 05:54 Active Medications Albuterol/Ipratropium (Duoneb -) 1 amp NEB RQID [facility] Last Admin: 06/14/19 08:12 Dose: 1 amp Chlorhexidine Gluconate (Hibiclens For Decolonization -) 1 applic TP HS [facility] Last Admin: 06/13/19 21:05 Dose: 1 applic Furosemide (Lasix Injection -) 20 mg IVPUSH ONCE ONE Stop: 06/14/19 12:01 Heparin Sodium (Porcine) (Heparin -) 5,000 unit SQ TID [facility] Last Admin: 06/14/19 05:58 Dose: 5,000 unit Piperacillin Sod/Tazobactam (Sod 3.375 gm/ Dextrose) 50 mls @ 100 mls/hr IVPB Q8H-IV JUAN ALBERTO; Protocol Last Admin: 06/14/19 09:00 Dose: 100 mls/hr Mupirocin (Bactroban Ointment (For Decolonization) -) 1 applic NS BID [facility] Stop: 06/18/19 09:59 Last Admin: 06/14/19 10:45 Dose: 1 applic ASSESSMENT AND PLAN: s/p Cardiopulmonary Arrest r/o Anoxic Brain Injury r/o Sepsis Lactic Acidosis Elevated LFTs likely Ischemic Injury +Troponins likely Demand Ischemia Chronic Respiratory Failure COPD Autism Osteogenesis Imperfecta Anemia - continue empiric antibiotics - f/u cultures - d/c IVF - monitor urine output, creatinine - lasix as needed - replete lytes - enteral feeds - DVT/GI prophylaxis - poor prognosis - can monitor on vent floor critical care time spent in reviewing chart, evaluating patient and formulating plan 35 min
--- NOTE | 2019-06-14 13:02 | PN ---
Physical Exam: SUBJECTIVE: Patient seen and examined at bedside in the ICU. Hypothermia protocol s/p cardiac arrest completed. Patient has some mouth movements, but not able to follow instructions. Not tracking the room. OBJECTIVE: Vital Signs Period Temp Pulse Resp BP Sys/Oliva Pulse Ox Last 24 Hr 93.8 F-98.6 F 78-108 14-26 90-154/53-101 98-103 GENERAL: The patient is sedated, intubated, in no acute distress. HEAD: Normal with no signs of trauma. EYES: PERRL, sclera anicteric, conjunctiva clear. No ptosis. ENT: Ears normal, nares patent, oropharynx clear without exudates, moist mucous membranes. NECK: Trachea midline, full range of motion, supple. LUNGS: Vented. Breath sounds equal, no accessory muscle use. HEART: Regular rate and rhythm, S1, S2 without murmur, rub or gallop. ABDOMEN: Soft, nontender, nondistended, no guarding, no rebound, no masses. EXTREMITIES: 2+ pulses, warm, well-perfused, 2+ pitting edema bilaterally. NEUROLOGICAL: Unable to assess. PSYCH: Unable to assess. SKIN: Warm, dry, normal turgor, no rashes or lesions noted Laboratory Results - last 24 hr 06/13/19 06/13/19 06/13/19 06:00 16:00 16:00 WBC RBC Hgb Hct MCV MCH MCHC RDW Plt Count MPV Absolute Neuts (auto) Neutrophils % Neutrophils % (Manual) Band Neutrophils % Lymphocytes % Lymphocytes % (Manual) Monocytes % Monocytes % (Manual) Eosinophils % Eosinophils % (Manual) Basophils % Basophils % (Manual) Myelocytes % (Man) Promyelocytes % (Man) Blast Cells % (Manual) Nucleated RBC % Metamyelocytes Hypochromia Platelet Estimate Polychromasia Poikilocytosis Basophilic Stippling Anisocytosis Microcytosis Macrocytosis Anticoagulation Therapy Puncture Site ABG pH ABG pCO2 at Pt Temp ABG pO2 at Pt Temp ABG HCO3 ABG O2 Sat (Measured) ABG O2 Content ABG Base Excess Jacob Test O2 Delivery Device Oxygen Flow Rate Vent Mode Vent Rate Mechanical Rate PEEP Pressure Support Vent Sodium Potassium Chloride Carbon Dioxide Anion Gap BUN Creatinine Est GFR (CKD-EPI)AfAm Est GFR (CKD-EPI)NonAf Random Glucose Lactic Acid Calcium Phosphorus Magnesium Total Bilirubin AST ALT Alkaline Phosphatase Creatine Kinase 196 H Creatine Kinase Index 5.0 CK-MB (CK-2) 9.8 H Troponin I 0.29 H 0.26 H Total Protein Albumin Hepatitis Be Antigen Negative 06/13/19 06/14/19 06/14/19 17:20 05:40 05:44 WBC RBC Hgb Hct MCV MCH MCHC RDW Plt Count MPV Absolute Neuts (auto) Neutrophils % Neutrophils % (Manual) Band Neutrophils % Lymphocytes % Lymphocytes % (Manual) Monocytes % Monocytes % (Manual) Eosinophils % Eosinophils % (Manual) Basophils % Basophils % (Manual) Myelocytes % (Man) Promyelocytes % (Man) Blast Cells % (Manual) Nucleated RBC % Metamyelocytes Hypochromia Platelet Estimate Polychromasia Poikilocytosis Basophilic Stippling Anisocytosis Microcytosis Macrocytosis Anticoagulation Therapy No Result Required. No Result Required. Puncture Site Right radial Right radial ABG pH 7.39 7.41 ABG pCO2 at Pt Temp 47.3 H 43.1 ABG pO2 at Pt Temp 139 H 152 H ABG HCO3 28.1 H 26.5 ABG O2 Sat (Measured) 99.3 H 99.5 H ABG O2 Content 11.7 11.3 ABG Base Excess 3.3 H 2.2 H Jacob Test Positive Positive O2 Delivery Device Ltv Vent Oxygen Flow Rate 40 40% Vent Mode A/c A/c Vent Rate 16 16 Mechanical Rate No Result Required. No Result Required. PEEP 5.0 5.0 Pressure Support Vent 350 350 Sodium Potassium Chloride Carbon Dioxide Anion Gap BUN Creatinine Est GFR (CKD-EPI)AfAm Est GFR (CKD-EPI)NonAf Random Glucose Lactic Acid 1.5 Calcium Phosphorus Magnesium Total Bilirubin AST ALT Alkaline Phosphatase Creatine Kinase Creatine Kinase Index CK-MB (CK-2) Troponin I Total Protein Albumin Hepatitis Be Antigen 06/14/19 06/14/19 05:44 05:54 WBC 24.8 H RBC 2.59 L Hgb 8.2 L Hct 25.1 L MCV 97.0 H MCH 31.8 MCHC 32.7 RDW 17.4 H Plt Count 228 D MPV 11.1 Absolute Neuts (auto) 22.9 H Neutrophils % 92.7 H Neutrophils % (Manual) 88.1 H Band Neutrophils % 0.0 Lymphocytes % 3.6 L Lymphocytes % (Manual) 6.0 L Monocytes % 3.7 L Monocytes % (Manual) 6 Eosinophils % 0.0 Eosinophils % (Manual) 0.0 Basophils % 0.0 Basophils % (Manual) 0.0 Myelocytes % (Man) 0 D Promyelocytes % (Man) 0 Blast Cells % (Manual) 0 Nucleated RBC % 0 Metamyelocytes 0 Hypochromia 0 Platelet Estimate Normal Polychromasia 1+ Poikilocytosis 0 Basophilic Stippling 1+ Anisocytosis 1+ Microcytosis 1+ Macrocytosis 0 Anticoagulation Therapy Puncture Site ABG pH ABG pCO2 at Pt Temp ABG pO2 at Pt Temp ABG HCO3 ABG O2 Sat (Measured) ABG O2 Content ABG Base Excess Jacob Test O2 Delivery Device Oxygen Flow Rate Vent Mode Vent Rate Mechanical Rate PEEP Pressure Support Vent Sodium 141 Potassium 3.0 L Chloride 104 Carbon Dioxide 28 Anion Gap 10 BUN 23.4 H Creatinine 0.2 L Est GFR (CKD-EPI)AfAm 170.71 Est GFR (CKD-EPI)NonAf 147.29 Random Glucose 94 Lactic Acid Calcium 8.3 L Phosphorus 2.2 L Magnesium 1.5 L Total Bilirubin 0.3 AST 117 H ALT 172 H Alkaline Phosphatase 265 H Creatine Kinase Creatine Kinase Index CK-MB (CK-2) Troponin I Total Protein 5.7 L Albumin 2.0 L Hepatitis Be Antigen Active Medications Generic Name Dose Route Start Last Admin Trade Name Freq PRN Reason Stop Dose Admin Albuterol/Ipratropium 1 amp 06/13/19 12:00 06/14/19 12:23 Duoneb - NEB 1 amp RQID JUAN ALBERTO Administration Chlorhexidine Gluconate 1 applic 06/13/19 22:00 06/13/19 21:05 Hibiclens For Decolonization - TP 1 applic HS JUAN ALBERTO Administration Heparin Sodium (Porcine) 5,000 unit 06/13/19 14:00 06/14/19 05:58 Heparin - SQ 5,000 unit TID JUAN ALBERTO Administration Piperacillin Sod/Tazobactam 50 mls @ 100 mls/hr 06/13/19 18:00 06/14/19 09:00 Sod 3.375 gm/ Dextrose IVPB 100 mls/hr Q8H-IV JUAN ALBERTO Administration Protocol Mupirocin 1 applic 06/13/19 10:00 06/14/19 10:45 Bactroban Ointment (For Decolonization) - NS 06/18/19 09:59 1 applic BID JUAN ALBERTO Administration ASSESSMENT/PLAN: - poor prognosis - can monitor on vent floor 53 yo F with a PMH of Osteogenesis Imperfecta, COPD, Chronic Respiratory Failure s/p Trach, Autism Spectrum Disorder, Wedge Compression Fracture of T2 who presented to [facility] from [place] 2/2 cardiac arrest s/p rosc. #NEURO- Autism Spectrum d/o.,Acute encephalopathy -Pt s/p Cardiac arrest. Pt not at baseline -CT Head -Neuro Consult -c/w Risperidone #ID- Sepsis 2/2 unclear source of infection -lactic downtrending 13.8, trend. WBC 15.5, HR 115 -S/p Vanc/Zosyn -ID Consult -Cont zosyn 3.375 -Hold vanc for now -Pending bcx, Sputum cx -urine cx negative #CARDIO-S/p Cardiac Arrest likely 2/2 respiratory arrest -Cardiac arrest s/p ROSC ~4 min - initiated Hypothermia protocol. start rewarming at 3am -c/w cardiac monitoring -Cardio consult -trend trops to peak -no sig ischemia on ekg, will rpt ekg -echo reviewed. LVEF 65% -1st set of cardiac enzymes were wnl with normal CK and troponin level -2nd troponin mildly elevated, no CK level done, does not appear c/w with Type 1 SD -lasix 20 mg PRN #Pulm: trach to vent -LE duplex to r/o DVT #GI: transaminitis likely 2/2 shock -improving -abdomen u/s appears to be negative #F/E/N -d/c IVF -Monitor Electrolytes -dietary consult placed for enteral feeds -monitor urine output and Cr #PPX -heparin TID Dispo: transfer for vent monitoring, poor prognosis Visit type - Emergency Visit Emergency Visit: No - New Patient This patient is new to me today: No - Critical Care Critical Care patient: Yes Total Critical Care Time (in minutes): 35 Critical Care Statement: The care of this patient involved high complexity decision making to prevent further life threatening deterioration of the patient 's condition and/or to evaluate & treat vital organ system(s) failure or risk of failure. ATTENDING PHYSICIAN STATEMENT I saw and evaluated the patient. I reviewed the resident's note and discussed the case with the resident. I agree with the resident's findings and plan as documented. SUBJECTIVE: OBJECTIVE: ASSESSMENT AND PLAN:
--- NOTE | 2019-06-14 17:09 | PN ---
Teaching Attending Note Name of Resident: Leigh Ann Ventura ATTENDING PHYSICIAN STATEMENT I saw and evaluated the patient. I reviewed the resident's note and discussed the case with the resident. I agree with the resident's findings and plan as documented. SUBJECTIVE: OBJECTIVE: ASSESSMENT AND PLAN:
[2019-06-14] MEDS ORDERED: PIPERACILLIN/TAZOB 3.375 GM 3.375 GM in DEXTROSE 5%-WATER - 50 ML IVPB SCH (18:00)
[2019-06-14 19:09] LABS: HEP B CORE AB, TOT Negative (Negative)
[2019-06-14] MEDS ORDERED: IBUPROFEN 800 MG/8 ML IJ IVPB ONE (19:34)
[2019-06-14] MEDS ORDERED: SCOPOLAMINE HYDROBROMIDE 1 PATCH PATCH.TD72 TD SCH (19:45)
[2019-06-14] MEDS ORDERED: PT OWN MED DRAWER 7, Y5N ONE (20:17)
[2019-06-14] MEDS ORDERED: ARTIFICIAL TEARS (POLYVINYL ALCOHOL) OPTH DROPS OU PRN (20:54)
[2019-06-14] MEDS ORDERED: MUPIROCIN 2% TOPICAL OINTMENT FOR DECOLONIZATION NS SCH ×2 (22:00)
[2019-06-14] MEDS ORDERED: CHLORHEXIDINE GLUCONATE 4% CLEANSER FOR DECOLONIZATION TP SCH ×2 (22:00)
[2019-06-14] MEDS ORDERED: HEPARIN NA (PORCINE) 5,000 UNITS/ML 1ML VIAL SQ SCH ×2 (22:00)
[2019-06-15] MEDS ORDERED: DEXTROSE 5%-WATER - 50 ML IVPB ONE ×3 (01:28→19:23)
[2019-06-15] MEDS ORDERED: PIPERACILLIN/TAZOBACTAM 3.375 GM VIAL IVPB ONE ×3 (01:28→19:22)
[2019-06-15] MEDS: PIPERACILLIN/TAZOB 3.375 GM 3.375 GM in DEXTROSE 5%-WATER - 50 ML IVPB SCH ×3 (02:07→19:50)
[2019-06-15] MEDS: IBUPROFEN 800 MG/8 ML IJ IVPB PRN ×2 (04:55→15:17)
[2019-06-15 07:01] LABS: ARTERIAL BLD GAS O2 SATURATION 99.2 % (95-98); ARTERIAL BLOOD GAS BASE EXCESS 1.6 meq/l (-2-2); ARTERIAL BLOOD GAS PCO2 41.8 mmHg (35-45); ARTERIAL BLOOD GAS PO2 135 mmHg (80-100); ARTERIAL BLOOD GAS pH 7.41 (7.35-7.45)
[2019-06-15 07:02] LABS: ALLENS TEST POSITIVE
[2019-06-15] MEDS: ALBUTEROL SO4 2.5/IPRATROPIUM 0.5 INH SOL 3 ML VIAL.NEB. NEB SCH ×4 (08:00→20:56)
[2019-06-15] MEDS ORDERED: ACETAMINOPHEN 1000 MG/100 ML VIAL (NON FORMULARY) IVPB PRN (09:17)
[2019-06-15 09:57] LABS: BASO % 0.3 % (0-2.0); HEMATOCRIT 24.4 % (32.4-45.2); LYMPH % 4.8 % (8-40); MCH 31.8 pg (25.7-33.7); MCHC 32.8 g/dl (32.0-36.0); MEAN CELL VOLUME 96.9 fl (80-96); MEAN PLT VOLUME 11.3 fl (7.5-11.1); MONO % 4.8 % (3.8-10.2); NEUT % 90.1 % (42.8-82.8); PLATELET COUNT 260 K/MM3 (134-434); RBC 2.52 M/mm3 (3.60-5.2); WHITE BLOOD COUNT 24.8 K/mm3 (4.0-10.0)
[2019-06-15 10:12] LABS: BILIRUBIN,TOTAL 0.3 mg/dL (0.2-1); BLOOD UREA NITROGEN 24.9 mg/dL (7-18); CALCIUM 8.3 mg/dL (8.5-10.1); CREATININE 0.4 mg/dL (0.55-1.3); MAGNESIUM 1.6 mg/dL (1.8-2.4); TOT PROT 5.8 g/dl (6.4-8.2)
--- NOTE | 2019-06-15 10:31 | PN ---
Progress Note (short form) - Note Progress Note: Poorly responsive. Intermittent myoclonus. AC Mode of vent. Intake & Output 06/12/19 06/13/19 06/14/19 06/15/19 23:59 23:59 23:59 23:59 Intake Total 2100 1630 150 Output Total 950 650 50 Balance 1150 980 100 Weight 109 lb 116 lb 9.6 oz 117 lb 14.4 oz Last Vital Signs Temp Pulse Resp BP Pulse Ox 101.1 F H 114 H 17 130/60 96 06/15/19 08:25 06/15/19 10:20 06/15/19 10:20 06/15/19 10:20 06/14/19 21:30 Active Medications Acetaminophen (Ofirmev Injection -) 1,000 mg IVPB Q6H PRN PRN Reason: FEVER Albuterol/Ipratropium (Duoneb -) 1 amp NEB RQID JUAN ALBERTO Last Admin: 06/15/19 08:00 Dose: 1 amp Artificial Tears (Artificial Tears) 1 drop OU BID PRN PRN Reason: DRY EYES Piperacillin Sod/Tazobactam (Sod 3.375 gm/ Dextrose) 50 mls @ 100 mls/hr IVPB Q8H-IV JUAN ALBERTO; Protocol Last Admin: 06/15/19 10:24 Dose: 100 mls/hr Ibuprofen (Caldolor Injection -) 400 mg IVPB Q6H PRN PRN Reason: FEVER Last Admin: 06/15/19 04:55 Dose: 400 mg Scopolamine HBr (Transderm-Scop -) 1 patch TD Q72H JUAN ALBERTO Gen: vented, poorly responsive Heart: RRR Lung: decreased breath sounds at the bases Abd: soft, nontender Ext: + edema Laboratory Results - last 24 hr 06/13/19 06/14/19 06/15/19 06:00 05:44 06:50 WBC RBC Hgb Hct MCV MCH MCHC RDW Plt Count MPV Absolute Neuts (auto) Neutrophils % Neutrophils % (Manual) 88.1 H Band Neutrophils % 0.0 Lymphocytes % Lymphocytes % (Manual) 6.0 L Monocytes % Monocytes % (Manual) 6 Eosinophils % Eosinophils % (Manual) 0.0 Basophils % Basophils % (Manual) 0.0 Myelocytes % (Man) 0 D Promyelocytes % (Man) 0 Blast Cells % (Manual) 0 Nucleated RBC % Metamyelocytes 0 Hypochromia 0 Platelet Estimate Normal Polychromasia 1+ Poikilocytosis 0 Basophilic Stippling 1+ Anisocytosis 1+ Microcytosis 1+ Macrocytosis 0 Anticoagulation Therapy No Result Required. Puncture Site Right radial ABG pH 7.41 ABG pCO2 at Pt Temp 41.8 ABG pO2 at Pt Temp 135 H ABG HCO3 25.9 ABG O2 Sat (Measured) 99.2 H ABG O2 Content 11.1 ABG Base Excess 1.6 Jacob Test Positive O2 Delivery Device Vent Oxygen Flow Rate 40% Vent Mode A/c Vent Rate 16 Mechanical Rate No Result Required. PEEP 5.0 Pressure Support Vent 350 Sodium Potassium Chloride Carbon Dioxide Anion Gap BUN Creatinine Est GFR (CKD-EPI)AfAm Est GFR (CKD-EPI)NonAf Random Glucose Calcium Phosphorus Magnesium Total Bilirubin AST ALT Alkaline Phosphatase Total Protein Albumin Hep A IgM Ab Confirm Negative Hepatitis A Ab Total Negative Hep Bs Antigen Negative Hep Bs Antibody Non reactive Hep B Core Total Ab Negative Hep B Core IgM Ab Negative Hepatitis Be Antibody Negative Hepatitis Be Antigen Negative 06/15/19 06/15/19 08:40 08:40 WBC 24.8 H RBC 2.52 L Hgb 8.0 L Hct 24.4 L MCV 96.9 H MCH 31.8 MCHC 32.8 RDW 18.0 H Plt Count 260 MPV 11.3 H Absolute Neuts (auto) 22.4 H Neutrophils % 90.1 H Neutrophils % (Manual) Band Neutrophils % Lymphocytes % 4.8 L D Lymphocytes % (Manual) Monocytes % 4.8 Monocytes % (Manual) Eosinophils % 0.0 Eosinophils % (Manual) Basophils % 0.3 D Basophils % (Manual) Myelocytes % (Man) Promyelocytes % (Man) Blast Cells % (Manual) Nucleated RBC % 0 Metamyelocytes Hypochromia Platelet Estimate Polychromasia Poikilocytosis Basophilic Stippling Anisocytosis Microcytosis Macrocytosis Anticoagulation Therapy Puncture Site ABG pH ABG pCO2 at Pt Temp ABG pO2 at Pt Temp ABG HCO3 ABG O2 Sat (Measured) ABG O2 Content ABG Base Excess Jacob Test O2 Delivery Device Oxygen Flow Rate Vent Mode Vent Rate Mechanical Rate PEEP Pressure Support Vent Sodium 143 Potassium 3.0 L Chloride 108 H Carbon Dioxide 26 Anion Gap 10 BUN 24.9 H Creatinine 0.4 L Est GFR (CKD-EPI)AfAm 135.90 Est GFR (CKD-EPI)NonAf 117.26 Random Glucose 83 Calcium 8.3 L Phosphorus 3.0 Magnesium 1.6 L Total Bilirubin 0.3 AST 111 H ALT 115 H Alkaline Phosphatase 254 H Total Protein 5.8 L Albumin 2.0 L Hep A IgM Ab Confirm Hepatitis A Ab Total Hep Bs Antigen Hep Bs Antibody Hep B Core Total Ab Hep B Core IgM Ab Hepatitis Be Antibody Hepatitis Be Antigen ASSESSMENT AND PLAN: s/p Cardiopulmonary Arrest Anoxic Brain Injury Sepsis Lactic Acidosis Elevated LFTs likely Ischemic Injury +Troponins likely Demand Ischemia Chronic Respiratory Failure COPD Autism Osteogenesis Imperfecta Anemia - ABX coverage - f/u final cultures - monitor urine output, creatinine - lasix as needed - replete lytes - enteral feeds - DVT/GI prophylaxis - poor prognosis Dr Aguilar
--- NOTE | 2019-06-15 10:33 | PN ---
Progress Note, Physician Chief Complaint: Cardiac Arrest History of Present Illness: Previous notes and events reviewed Unrepsonsive mechanically ventilated febrile leukocytosis - Current Medication List Current Medications: Active Medications Acetaminophen (Ofirmev Injection -) 1,000 mg IVPB Q6H PRN PRN Reason: FEVER Albuterol/Ipratropium (Duoneb -) 1 amp NEB RQID JUAN ALBERTO Last Admin: 06/15/19 08:00 Dose: 1 amp Artificial Tears (Artificial Tears) 1 drop OU BID PRN PRN Reason: DRY EYES Piperacillin Sod/Tazobactam (Sod 3.375 gm/ Dextrose) 50 mls @ 100 mls/hr IVPB Q8H-IV JUAN ALBERTO; Protocol Last Admin: 06/15/19 10:24 Dose: 100 mls/hr Ibuprofen (Caldolor Injection -) 400 mg IVPB Q6H PRN PRN Reason: FEVER Last Admin: 06/15/19 04:55 Dose: 400 mg Scopolamine HBr (Transderm-Scop -) 1 patch TD Q72H JUAN ALBERTO - Objective Vital Signs: Vital Signs Temperature 101.1 F H 06/15/19 08:25 Pulse Rate 114 H 06/15/19 10:20 Respiratory Rate 17 06/15/19 10:20 Blood Pressure 130/60 06/15/19 10:20 O2 Sat by Pulse Oximetry (%) 96 06/14/19 21:30 Constitutional: Yes: No Distress, Calm Eyes: Yes: Conjunctiva Clear HENT: Yes: Atraumatic Neck: Yes: Other (trach) Cardiovascular: Yes: Tachycardia Respiratory: Yes: Mechanically Ventilated, Rhonchi Gastrointestinal: Yes: Normal Bowel Sounds, Soft, Other (G tube) Genitourinary: Yes: Incontinence Musculoskeletal: Yes: Muscle Weakness Extremities: Yes: WNL Edema: Yes (LUE edema) Neurological: Yes: Pre-Existing Deficit, Unresponsive Labs: CBC, BMP 06/15/19 08:40 06/15/19 08:40 INR, PTT INR 1.12 (0.83-1.09) H 06/13/19 06:00 Microbiology 06/14/19 11:30 Sputum - Endotrachea Suction/Ventilator Sputum Culture - Preliminary Presumptive Ps Aeruginosa 06/12/19 23:30 Blood - Peripheral Venous Blood Culture - Preliminary NO GROWTH OBTAINED AFTER 48 HOURS, INCUBATION TO CONTINUE FOR 3 DAYS. 06/12/19 23:30 Blood - Peripheral Venous Blood Culture - Preliminary NO GROWTH OBTAINED AFTER 48 HOURS, INCUBATION TO CONTINUE FOR 3 DAYS. 06/13/19 00:50 Urine - Urine Clean Catch Urine Culture - Final NO GROWTH OBTAINED Problem List - Problems (1) COPD (chronic obstructive pulmonary disease) Assessment/Plan: -Pulm on board -mechanically ventilated -keep SpO2 >90% -Bronchodilators Code(s): J44.9 - CHRONIC OBSTRUCTIVE PULMONARY DISEASE, UNSPECIFIED (2) Cardiac arrest Assessment/Plan: -completed hypothermia protocol -Cardiology on board -troponin 0.04~0.53~0.29~0.26 Code(s): I46.9 - CARDIAC ARREST, CAUSE UNSPECIFIED (3) Chronic respiratory failure with hypoxia and hypercapnia Assessment/Plan: -Pulm on board -mechanically ventilated -keep SpO2 >90% -Bronchodilators Code(s): J96.11 - CHRONIC RESPIRATORY FAILURE WITH HYPOXIA; J96.12 - CHRONIC RESPIRATORY FAILURE WITH HYPERCAPNIA (4) Sepsis Assessment/Plan: -ID on board -leukocytosis WBC 24.8 -febrile -tylenol PRN for temp >100F -BC and UC neg -Sputum Cx prelim positive -Zosyn Code(s): A41.9 - SEPSIS, UNSPECIFIED ORGANISM (5) Transaminitis Assessment/Plan: -GI on board -AST 111, ALT 115, Alk Phos 254 -Abd US shows mild CBD dilatation 0.8cm Code(s): R74.0 - NONSPEC ELEV OF LEVELS OF TRANSAMNS & LACTIC ACID DEHYDRGNSE Assessment/Plan see problem list dvt ppx
--- NOTE | 2019-06-15 12:27 | PN ---
Progress Note (short form) - Note Progress Note: Spoke with Palliative RN Rea and HANANE Ana Luisa Fischer (mother). HANANE wishes to place patient as DNR/DNI. MOLST form to be completed. Due to patient history of Autism are pending capacity determination papers ad legal documentation stating mother is legal guardian. Problem List - Problems (1) COPD (chronic obstructive pulmonary disease) Code(s): J44.9 - CHRONIC OBSTRUCTIVE PULMONARY DISEASE, UNSPECIFIED (2) Cardiac arrest Code(s): I46.9 - CARDIAC ARREST, CAUSE UNSPECIFIED (3) Chronic respiratory failure with hypoxia and hypercapnia Code(s): J96.11 - CHRONIC RESPIRATORY FAILURE WITH HYPOXIA; J96.12 - CHRONIC RESPIRATORY FAILURE WITH HYPERCAPNIA (4) Sepsis Code(s): A41.9 - SEPSIS, UNSPECIFIED ORGANISM (5) Transaminitis Code(s): R74.0 - NONSPEC ELEV OF LEVELS OF TRANSAMNS & LACTIC ACID DEHYDRGNSE
[2019-06-15 13:39] LABS: ANISOCYTOSIS 1+; MACROCYTOSIS 0; OVALOCYTE 1+; PLATELET ESTIMATE NORMAL; TEAR DROP CELLS 1+
--- NOTE | 2019-06-15 16:43 | PN ---
Progress Note, Physician Chief Complaint: FEBRILE BC GPCCL X1 UNRESPONSIVE ON VENTILATOR - Current Medication List Current Medications: Active Medications Acetaminophen (Ofirmev Injection -) 1,000 mg IVPB Q6H PRN PRN Reason: FEVER Last Admin: 06/15/19 11:45 Dose: 1,000 mg Albuterol/Ipratropium (Duoneb -) 1 amp NEB RQID JUAN ALBERTO Last Admin: 06/15/19 16:24 Dose: 1 amp Artificial Tears (Artificial Tears) 1 drop OU BID PRN PRN Reason: DRY EYES Piperacillin Sod/Tazobactam (Sod 3.375 gm/ Dextrose) 50 mls @ 100 mls/hr IVPB Q8H-IV JUAN ALBERTO; Protocol Last Admin: 06/15/19 10:24 Dose: 100 mls/hr Ibuprofen (Caldolor Injection -) 400 mg IVPB Q6H PRN PRN Reason: FEVER Last Admin: 06/15/19 15:17 Dose: 400 mg Morphine Sulfate (Morphine Injection -) 2 mg IVPUSH BID JUAN ALBERTO Scopolamine HBr (Transderm-Scop -) 1 patch TD Q72H JUAN ALBERTO - Objective Vital Signs: Vital Signs Temperature 101.2 F H 06/15/19 15:01 Pulse Rate 103 H 06/15/19 14:00 Respiratory Rate 21 H 06/15/19 16:25 Blood Pressure 127/56 L 06/15/19 14:00 O2 Sat by Pulse Oximetry (%) 97 06/15/19 10:00 Constitutional: Yes: No Distress Cardiovascular: Yes: Regular Rate and Rhythm, S1, S2 Respiratory: Yes: Mechanically Ventilated Gastrointestinal: Yes: Normal Bowel Sounds, Soft. No: Tenderness Edema: LLE: 1+, RLE: 1+ Labs: CBC, BMP 06/15/19 08:40 06/15/19 08:40 INR, PTT INR 1.12 (0.83-1.09) H 06/13/19 06:00 Assessment/Plan FEVER + BC ? SIGNIFICANCE S/P CARDIAC ARREST PROBABLE ASP PNEUMONIA LEUKOCYTOSIS REPEAT BC CONTINUE ZOSYN VANCOMYCIN PENDING C/S
[2019-06-15] MEDS: VANCOMYCIN 1 GRAM (PRE-DOCKED) 1,000 MG/250 ML BAG IVPB SCH (17:27)
--- NOTE | 2019-06-15 20:01 | CONSULT ---
Consult - text type - Consultation Consultation Note: NEUROLOGY CONSULTATION is greatly appreciated: This 53 yo woman is a [place] resident with h/o osteogenesis imperfecta, COPD, chronic pain, chronic constipation and "autism." Prior respiratory arrest and trache. On multiple meds including: Acetaminophen; Albuterol; Cyclobenzaprine; Docusate ; Famotidine; Fluoxetine; Gabapentin; Risperidone 0.25; and oxyCODONE. Found by RN in cardiorespiratory arrest. CPR "x2 ?" instituted with pulse restored. MARÍA: Short stature. Down's facies? s/p trache. s/p TKR NEURO: No response to pain, sternal pressure. No spontaneous respirations. Right exotropia with no EOM's to Doll's head. + sluggish left corneal. No right corneal No limb mov'ts or response to pinch. + BJ's. Areflexic in legs. Plantars silent Sl. increased tone in legs (R>L) IMP: Severe B/L cerebral dysfunction with minimal evidence of brainstem function c/w severe anoxic encephalopathy. SUGGEST: Continue Supportive care Prognosis grave Agree with DNR status. Thank you very much, Mario Paez MD
[2019-06-15] MEDS: MORPHINE SULFATE 2 MG/ML VIAL IVPUSH SCH (21:21)
[2019-06-16] MEDS ORDERED: PIPERACILLIN/TAZOBACTAM 3.375 GM VIAL IVPB ONE ×3 (01:02→19:22)
[2019-06-16] MEDS ORDERED: DEXTROSE 5%-WATER - 50 ML IVPB ONE ×3 (01:02→19:22)
[2019-06-16] MEDS: PIPERACILLIN/TAZOB 3.375 GM 3.375 GM in DEXTROSE 5%-WATER - 50 ML IVPB SCH ×3 (01:39→19:25)
[2019-06-16 02:10] LABS: FIBROSIS SCORE. 0.07 (0.00-0.21); HCV ALPHA 2 MACRO CHART 171 mg/dL (110-276); NECRO.INFLAM ACT.SCORE 0.84 (0.00-0.17); NECROINFLAM. ACTIVITY GRADE A3-Severe activity (.)
[2019-06-16] MEDS: VANCOMYCIN 1 GRAM (PRE-DOCKED) 1,000 MG/250 ML BAG IVPB SCH ×2 (04:49→19:18)
[2019-06-16] MEDS: ALBUTEROL SO4 2.5/IPRATROPIUM 0.5 INH SOL 3 ML VIAL.NEB. NEB SCH ×4 (08:13→20:13)
[2019-06-16 08:25] LABS: HEMATOCRIT 23.9 % (32.4-45.2); HEMOGLOBIN 7.6 GM/dL (10.7-15.3); MCH 30.9 pg (25.7-33.7); MCHC 31.8 g/dl (32.0-36.0); MEAN CELL VOLUME 97.2 fl (80-96); PLATELET COUNT 226 K/MM3 (134-434); RBC 2.46 M/mm3 (3.60-5.2); RDW 17.6 % (11.6-15.6); WHITE BLOOD COUNT 18.5 K/mm3 (4.0-10.0)
[2019-06-16 08:57] LABS: ALBUMIN 1.9 g/dl (3.4-5.0); BILIRUBIN,TOTAL 0.6 mg/dL (0.2-1); BLOOD UREA NITROGEN 22.1 mg/dL (7-18); CREATININE 0.3 mg/dL (0.55-1.3); TOT PROT 5.4 g/dl (6.4-8.2)
[2019-06-16 09:05] LABS: POTASSIUM 2.7 mmol/L (3.5-5.1)
[2019-06-16] MEDS: MORPHINE SULFATE 2 MG/ML VIAL IVPUSH SCH ×3 (10:47→21:12)
--- NOTE | 2019-06-16 12:39 | PN ---
Progress Note, Physician History of Present Illness: pulmonary unresponsive on vent support ac mode - Current Medication List Current Medications: Active Medications Acetaminophen (Ofirmev Injection -) 1,000 mg IVPB Q6H PRN PRN Reason: FEVER Last Admin: 06/15/19 11:45 Dose: 1,000 mg Albuterol/Ipratropium (Duoneb -) 1 amp NEB RQID JUAN ALBERTO Last Admin: 06/16/19 12:29 Dose: 1 amp Artificial Tears (Artificial Tears) 1 drop OU BID PRN PRN Reason: DRY EYES Last Admin: 06/15/19 15:00 Dose: 1 drop Piperacillin Sod/Tazobactam (Sod 3.375 gm/ Dextrose) 50 mls @ 100 mls/hr IVPB Q8H-IV JUAN ALBERTO; Protocol Last Admin: 06/16/19 10:47 Dose: 100 mls/hr Vancomycin HCl (Vancomycin (Pre-Docked)) 1,000 mg in 250 mls @ 166.667 mls/hr IVPB Q12H JUAN ALBERTO; Protocol Last Admin: 06/16/19 04:49 Dose: 166.667 mls/hr Ibuprofen (Caldolor Injection -) 400 mg IVPB Q6H PRN PRN Reason: FEVER Last Admin: 06/15/19 15:17 Dose: 400 mg Morphine Sulfate (Morphine Sulfate) 2 mg IVPUSH BID JUAN ALBERTO Last Admin: 06/16/19 10:47 Dose: 2 mg Scopolamine HBr (Transderm-Scop -) 1 patch TD Q72H JUAN ALBERTO - Objective Vital Signs: Vital Signs Temperature 98.6 F 06/16/19 10:50 Pulse Rate 80 06/16/19 10:50 Respiratory Rate 18 06/16/19 12:26 Blood Pressure 136/56 L 06/16/19 10:50 O2 Sat by Pulse Oximetry (%) 99 06/15/19 21:00 Constitutional: Yes: Well Nourished, Other (unresponsive) Eyes: Yes: WNL HENT: Yes: WNL Neck: Yes: Supple (trach) Cardiovascular: Yes: Regular Rate and Rhythm, S1, S2 Respiratory: Yes: Rales (rhonchi) Gastrointestinal: Yes: Normal Bowel Sounds, Soft Extremities: Yes: WNL Edema: No Labs: CBC, BMP 06/16/19 07:20 06/16/19 07:20 INR, PTT INR 1.12 (0.83-1.09) H 06/13/19 06:00 Problem List - Problems (1) Anoxic brain damage Code(s): G93.1 - ANOXIC BRAIN DAMAGE, NOT ELSEWHERE CLASSIFIED (2) Autism disorder Code(s): F84.0 - AUTISTIC DISORDER (3) Chronic respiratory failure with hypoxia and hypercapnia Code(s): J96.11 - CHRONIC RESPIRATORY FAILURE WITH HYPOXIA; J96.12 - CHRONIC RESPIRATORY FAILURE WITH HYPERCAPNIA (4) Osteogenesis imperfecta Code(s): Q78.0 - OSTEOGENESIS IMPERFECTA (5) Sepsis Code(s): A41.9 - SEPSIS, UNSPECIFIED ORGANISM (6) Unresponsive Code(s): R41.89 - OTH SYMPTOMS AND SIGNS W COGNITIVE FUNCTIONS AND AWARENESS Assessment/Plan ASSESSMENT AND PLAN: s/p Cardiopulmonary Arrest Anoxic Brain Injury r/o Sepsis Lactic Acidosis Elevated LFTs likely Ischemic Injury +Troponins likely Demand Ischemia Chronic Respiratory Failure COPD Autism Osteogenesis Imperfecta Anemia - antibiotics - monitor urine output, creatinine - lasix as needed - replete lytes - enteral feeds - DVT/GI prophylaxis - SUPPORTIVE care - prognosis poor DR BREWSTER
--- NOTE | 2019-06-16 14:58 | PN ---
Progress Note, Physician Chief Complaint: Cardiac Arrest History of Present Illness: Previous notes and events reviewed Unrepsonsive mechanically ventilated family spoke with Palliative RN and wish to only continue with supportive care, currently [facility] to make patient DNR/DNI~patient is full code until hear from [facility] and [facility] - Current Medication List Current Medications: Active Medications Acetaminophen (Ofirmev Injection -) 1,000 mg IVPB Q6H PRN PRN Reason: FEVER Last Admin: 06/15/19 11:45 Dose: 1,000 mg Albuterol/Ipratropium (Duoneb -) 1 amp NEB RQID JUAN ALBERTO Last Admin: 06/16/19 12:29 Dose: 1 amp Artificial Tears (Artificial Tears) 1 drop OU BID PRN PRN Reason: DRY EYES Last Admin: 06/15/19 15:00 Dose: 1 drop Piperacillin Sod/Tazobactam (Sod 3.375 gm/ Dextrose) 50 mls @ 100 mls/hr IVPB Q8H-IV JUAN ALBERTO; Protocol Last Admin: 06/16/19 10:47 Dose: 100 mls/hr Vancomycin HCl (Vancomycin (Pre-Docked)) 1,000 mg in 250 mls @ 166.667 mls/hr IVPB Q12H JUAN ALBERTO; Protocol Last Admin: 06/16/19 04:49 Dose: 166.667 mls/hr Ibuprofen (Caldolor Injection -) 400 mg IVPB Q6H PRN PRN Reason: FEVER Last Admin: 06/15/19 15:17 Dose: 400 mg Morphine Sulfate (Morphine Sulfate) 2 mg IVPUSH BID JUAN ALBERTO Last Admin: 06/16/19 10:47 Dose: 2 mg Scopolamine HBr (Transderm-Scop -) 1 patch TD Q72H JUAN ALBERTO - Objective Vital Signs: Vital Signs Temperature 98.6 F 06/16/19 10:50 Pulse Rate 80 06/16/19 10:50 Respiratory Rate 18 06/16/19 12:26 Blood Pressure 136/56 L 06/16/19 10:50 O2 Sat by Pulse Oximetry (%) 99 06/15/19 21:00 Constitutional: Yes: No Distress HENT: Yes: Atraumatic Neck: Yes: Other (trach) Cardiovascular: Yes: Regular Rate and Rhythm Respiratory: Yes: Mechanically Ventilated, Rhonchi Gastrointestinal: Yes: Normal Bowel Sounds, Soft Genitourinary: Yes: Incontinence Musculoskeletal: Yes: Muscle Weakness Extremities: Yes: WNL Edema: No Neurological: Yes: Unresponsive Labs: CBC, BMP 06/16/19 07:20 06/16/19 07:20 INR, PTT INR 1.12 (0.83-1.09) H 06/13/19 06:00 Problem List - Problems (1) COPD (chronic obstructive pulmonary disease) Assessment/Plan: -Pulm on board -mechanically ventilated -keep SpO2 >90% -Bronchodilators Code(s): J44.9 - CHRONIC OBSTRUCTIVE PULMONARY DISEASE, UNSPECIFIED (2) Cardiac arrest Assessment/Plan: -completed hypothermia protocol -Cardiology on board -troponin 0.04~0.53~0.29~0.26 Code(s): I46.9 - CARDIAC ARREST, CAUSE UNSPECIFIED (3) Chronic respiratory failure with hypoxia and hypercapnia Assessment/Plan: -Pulm on board -mechanically ventilated -keep SpO2 >90% -Bronchodilators Code(s): J96.11 - CHRONIC RESPIRATORY FAILURE WITH HYPOXIA; J96.12 - CHRONIC RESPIRATORY FAILURE WITH HYPERCAPNIA (4) Sepsis Assessment/Plan: -ID on board -leukocytosis WBC 18.5 -afebrile -tylenol PRN for temp >100F -BC and UC neg -Sputum Cx prelim positive -Zosyn Code(s): A41.9 - SEPSIS, UNSPECIFIED ORGANISM (5) Transaminitis Assessment/Plan: -GI on board -AST 163, ALT 113, Alk Phos 580 -Abd US shows mild CBD dilatation 0.8cm Code(s): R74.0 - NONSPEC ELEV OF LEVELS OF TRANSAMNS & LACTIC ACID DEHYDRGNSE Assessment/Plan see problem list dvt ppx patient is now supportive care, no blood draws or further testing
[2019-06-16] MEDS: KCL 10 MEQ IVPB 10 MEQ/100 ML INFUS.BAG IVPB SCH ×2 (16:09→17:51)
--- NOTE | 2019-06-16 18:53 | PN ---
Progress Note, Physician Chief Complaint: UNRESPONSIVE ON VENTILATOR - Current Medication List Current Medications: Active Medications Acetaminophen (Ofirmev Injection -) 1,000 mg IVPB Q6H PRN PRN Reason: FEVER Last Admin: 06/15/19 11:45 Dose: 1,000 mg Albuterol/Ipratropium (Duoneb -) 1 amp NEB RQID JUAN ALBERTO Last Admin: 06/16/19 16:40 Dose: 1 amp Artificial Tears (Artificial Tears) 1 drop OU BID PRN PRN Reason: DRY EYES Last Admin: 06/15/19 15:00 Dose: 1 drop Piperacillin Sod/Tazobactam (Sod 3.375 gm/ Dextrose) 50 mls @ 100 mls/hr IVPB Q8H-IV JUAN ALBERTO; Protocol Last Admin: 06/16/19 10:47 Dose: 100 mls/hr Vancomycin HCl (Vancomycin (Pre-Docked)) 1,000 mg in 250 mls @ 166.667 mls/hr IVPB Q12H JUAN ALBERTO; Protocol Last Admin: 06/16/19 04:49 Dose: 166.667 mls/hr Ibuprofen (Caldolor Injection -) 400 mg IVPB Q6H PRN PRN Reason: FEVER Last Admin: 06/15/19 15:17 Dose: 400 mg Morphine Sulfate (Morphine Sulfate) 2 mg IVPUSH Q6H JUAN ALBERTO Last Admin: 06/16/19 16:08 Dose: 2 mg Scopolamine HBr (Transderm-Scop -) 1 patch TD Q72H JUAN ALBERTO - Objective Vital Signs: Vital Signs Temperature 101.6 F H 06/16/19 15:00 Pulse Rate 86 06/16/19 15:00 Respiratory Rate 16 06/16/19 16:37 Blood Pressure 120/53 L 06/16/19 15:00 O2 Sat by Pulse Oximetry (%) 99 06/15/19 21:00 Constitutional: Yes: No Distress Cardiovascular: Yes: Regular Rate and Rhythm, S1, S2 Respiratory: Yes: Diminished Gastrointestinal: Yes: Normal Bowel Sounds, Soft Labs: CBC, BMP 06/16/19 07:20 06/16/19 07:20 INR, PTT INR 1.12 (0.83-1.09) H 06/13/19 06:00 Assessment/Plan FEVER + BC = contaminant S/P CARDIAC ARREST ANOXIA PROBABLE ASP PNEUMONIA LEUKOCYTOSIS REPEAT BC NO GROWTH CONTINUE ZOSYN PROGNOSIS POOR
[2019-06-17] MEDS ORDERED: SODIUM CHLORIDE 1,000 ML IV SCH (02:00)
[2019-06-17] MEDS ORDERED: PIPERACILLIN/TAZOBACTAM 3.375 GM VIAL IVPB ONE ×3 (02:06→15:44)
[2019-06-17] MEDS ORDERED: DEXTROSE 5%-WATER - 50 ML IVPB ONE ×3 (02:06→15:45)
[2019-06-17] MEDS: PIPERACILLIN/TAZOB 3.375 GM 3.375 GM in DEXTROSE 5%-WATER - 50 ML IVPB SCH ×3 (02:08→18:07)
[2019-06-17] MEDS: MORPHINE SULFATE 2 MG/ML VIAL IVPUSH SCH ×4 (03:26→22:10)
[2019-06-17] MEDS: VANCOMYCIN 1 GRAM (PRE-DOCKED) 1,000 MG/250 ML BAG IVPB SCH ×2 (05:15→18:06)
[2019-06-17] MEDS: ALBUTEROL SO4 2.5/IPRATROPIUM 0.5 INH SOL 3 ML VIAL.NEB. NEB SCH ×4 (07:25→20:10)
[2019-06-17 08:33] LABS: HEMATOCRIT 21.6 % (32.4-45.2); HEMOGLOBIN 7.2 GM/dL (10.7-15.3); MCH 31.9 pg (25.7-33.7); MCHC 33.4 g/dl (32.0-36.0); MEAN CELL VOLUME 95.5 fl (80-96); MEAN PLT VOLUME 10.2 fl (7.5-11.1); PLATELET COUNT 234 K/MM3 (134-434); RBC 2.27 M/mm3 (3.60-5.2); RDW 17.8 % (11.6-15.6); WHITE BLOOD COUNT 13.8 K/mm3 (4.0-10.0)
[2019-06-17 09:10] LABS: ALBUMIN 1.8 g/dl (3.4-5.0); BILIRUBIN,TOTAL 0.5 mg/dL (0.2-1); CALCIUM 7.7 mg/dL (8.5-10.1); CREATININE 0.4 mg/dL (0.55-1.3); POTASSIUM 3.1 mmol/L (3.5-5.1); TOT PROT 5.2 g/dl (6.4-8.2)
--- NOTE | 2019-06-17 10:55 | PN ---
Progress Note, Physician - Current Medication List Current Medications: Active Medications Acetaminophen (Ofirmev Injection -) 1,000 mg IVPB Q6H PRN PRN Reason: FEVER Last Admin: 06/15/19 11:45 Dose: 1,000 mg Albuterol/Ipratropium (Duoneb -) 1 amp NEB RQID JUAN ALBERTO Last Admin: 06/17/19 07:25 Dose: 1 amp Artificial Tears (Artificial Tears) 1 drop OU BID PRN PRN Reason: DRY EYES Last Admin: 06/15/19 15:00 Dose: 1 drop Piperacillin Sod/Tazobactam (Sod 3.375 gm/ Dextrose) 50 mls @ 100 mls/hr IVPB Q8H-IV JUAN ALBERTO; Protocol Last Admin: 06/17/19 10:35 Dose: 100 mls/hr Vancomycin HCl (Vancomycin (Pre-Docked)) 1,000 mg in 250 mls @ 166.667 mls/hr IVPB Q12H JUAN ALBERTO; Protocol Last Admin: 06/17/19 05:15 Dose: 166.667 mls/hr Sodium Chloride (Normal Saline -) 1,000 mls @ 50 mls/hr IV ASDIR JUAN ALBERTO Last Admin: 06/17/19 02:08 Dose: 50 mls/hr Ibuprofen (Caldolor Injection -) 400 mg IVPB Q6H PRN PRN Reason: FEVER Last Admin: 06/15/19 15:17 Dose: 400 mg Morphine Sulfate (Morphine Sulfate) 2 mg IVPUSH Q6H JUAN ALBERTO Last Admin: 06/17/19 10:34 Dose: 2 mg Scopolamine HBr (Transderm-Scop -) 1 patch TD Q72H JUAN ALBERTO - Objective Vital Signs: Vital Signs Temperature 99.8 F H 06/17/19 05:56 Pulse Rate 76 06/17/19 08:26 Respiratory Rate 16 06/17/19 08:26 Blood Pressure 115/63 06/17/19 05:56 O2 Sat by Pulse Oximetry (%) 100 06/17/19 08:26 Cardiovascular: Yes: Regular Rate and Rhythm Respiratory: Yes: Mechanically Ventilated Gastrointestinal: Yes: Normal Bowel Sounds, Soft Labs: CBC, BMP 06/17/19 07:25 06/17/19 07:25 INR, PTT INR 1.12 (0.83-1.09) H 06/13/19 06:00 Problem List - Problems (1) Cardiac arrest Code(s): I46.9 - CARDIAC ARREST, CAUSE UNSPECIFIED (2) Sepsis Code(s): A41.9 - SEPSIS, UNSPECIFIED ORGANISM (3) Autism disorder Code(s): F84.0 - AUTISTIC DISORDER (4) COPD (chronic obstructive pulmonary disease) Code(s): J44.9 - CHRONIC OBSTRUCTIVE PULMONARY DISEASE, UNSPECIFIED (5) Chronic respiratory failure with hypoxia and hypercapnia Code(s): J96.11 - CHRONIC RESPIRATORY FAILURE WITH HYPOXIA; J96.12 - CHRONIC RESPIRATORY FAILURE WITH HYPERCAPNIA (6) Transaminitis Code(s): R74.0 - NONSPEC ELEV OF LEVELS OF TRANSAMNS & LACTIC ACID DEHYDRGNSE Assessment/Plan - Problems (1) COPD (chronic obstructive pulmonary disease) Assessment/Plan: -Pulm on board -mechanically ventilated -keep SpO2 >90% -Bronchodilators Code(s): J44.9 - CHRONIC OBSTRUCTIVE PULMONARY DISEASE, UNSPECIFIED (2) Cardiac arrest Assessment/Plan: -completed hypothermia protocol -Cardiology on board -troponin 0.04~0.53~0.29~0.26 Code(s): I46.9 - CARDIAC ARREST, CAUSE UNSPECIFIED (3) Chronic respiratory failure with hypoxia and hypercapnia Assessment/Plan: -Pulm on board -mechanically ventilated -keep SpO2 >90% -Bronchodilators Code(s): J96.11 - CHRONIC RESPIRATORY FAILURE WITH HYPOXIA; J96.12 - CHRONIC RESPIRATORY FAILURE WITH HYPERCAPNIA (4) Sepsis Assessment/Plan: -ID on board -afebrile -tylenol PRN for temp >100F -BC and UC neg -Sputum Cx prelim positive -Zosyn Code(s): A41.9 - SEPSIS, UNSPECIFIED ORGANISM (5) Transaminitis Assessment/Plan: -GI on board -AST 163, ALT 113, Alk Phos 580 -Abd US shows mild CBD dilatation 0.8cm Code(s): R74.0 - NONSPEC ELEV OF LEVELS OF TRANSAMNS & LACTIC ACID DEHYDRGNSE ASSESSMENT FOR ORGAN TRANSPLANT IN PLACE
[2019-06-17] MEDS: KCL 10 MEQ IVPB 10 MEQ/100 ML INFUS.BAG IVPB SCH ×2 (12:00→15:50)
--- NOTE | 2019-06-17 12:02 | PN ---
Progress Note, Physician History of Present Illness: pulmonary no change unresponsive on vent support ac mode.tmax 100.6 - Current Medication List Current Medications: Active Medications Acetaminophen (Ofirmev Injection -) 1,000 mg IVPB Q6H PRN PRN Reason: FEVER Last Admin: 06/15/19 11:45 Dose: 1,000 mg Albuterol/Ipratropium (Duoneb -) 1 amp NEB RQID JUAN ALBERTO Last Admin: 06/17/19 11:30 Dose: 1 amp Artificial Tears (Artificial Tears) 1 drop OU BID PRN PRN Reason: DRY EYES Last Admin: 06/15/19 15:00 Dose: 1 drop Piperacillin Sod/Tazobactam (Sod 3.375 gm/ Dextrose) 50 mls @ 100 mls/hr IVPB Q8H-IV JUAN ALBERTO; Protocol Last Admin: 06/17/19 10:35 Dose: 100 mls/hr Vancomycin HCl (Vancomycin (Pre-Docked)) 1,000 mg in 250 mls @ 166.667 mls/hr IVPB Q12H JUAN ALBERTO; Protocol Last Admin: 06/17/19 05:15 Dose: 166.667 mls/hr Sodium Chloride (Normal Saline -) 1,000 mls @ 50 mls/hr IV ASDIR JUAN ALBERTO Last Admin: 06/17/19 02:08 Dose: 50 mls/hr Potassium Chloride (Potassium Chloride 10 Meq Premix Ivpb -) 10 meq in 100 mls @ 100 mls/hr IVPB Q60M JUAN ALBERTO Stop: 06/17/19 12:59 Ibuprofen (Caldolor Injection -) 400 mg IVPB Q6H PRN PRN Reason: FEVER Last Admin: 06/15/19 15:17 Dose: 400 mg Morphine Sulfate (Morphine Sulfate) 2 mg IVPUSH Q6H JUAN ALBERTO Last Admin: 06/17/19 10:34 Dose: 2 mg Scopolamine HBr (Transderm-Scop -) 1 patch TD Q72H JUAN ALBERTO - Objective Vital Signs: Vital Signs Temperature 99.8 F H 06/17/19 05:56 Pulse Rate 76 06/17/19 08:26 Respiratory Rate 16 06/17/19 11:54 Blood Pressure 115/63 06/17/19 05:56 O2 Sat by Pulse Oximetry (%) 100 06/17/19 11:54 Constitutional: Yes: Thin, Other (unresponsive) Eyes: Yes: WNL HENT: Yes: WNL Neck: Yes: Supple (trach) Cardiovascular: Yes: Regular Rate and Rhythm, S1, S2 Respiratory: Yes: Rhonchi (scattered melina rhonchi) Gastrointestinal: Yes: Normal Bowel Sounds, Soft Extremities: Yes: WNL Edema: No Labs: CBC, BMP 06/17/19 07:25 06/17/19 07:25 INR, PTT INR 1.12 (0.83-1.09) H 06/13/19 06:00 Problem List - Problems (1) Anoxic brain damage Code(s): G93.1 - ANOXIC BRAIN DAMAGE, NOT ELSEWHERE CLASSIFIED (2) Autism disorder Code(s): F84.0 - AUTISTIC DISORDER (3) Chronic respiratory failure with hypoxia and hypercapnia Code(s): J96.11 - CHRONIC RESPIRATORY FAILURE WITH HYPOXIA; J96.12 - CHRONIC RESPIRATORY FAILURE WITH HYPERCAPNIA (4) Osteogenesis imperfecta Code(s): Q78.0 - OSTEOGENESIS IMPERFECTA (5) Sepsis Code(s): A41.9 - SEPSIS, UNSPECIFIED ORGANISM (6) Unresponsive Code(s): R41.89 - OTH SYMPTOMS AND SIGNS W COGNITIVE FUNCTIONS AND AWARENESS Assessment/Plan ASSESSMENT AND PLAN: s/p Cardiopulmonary Arrest Anoxic Brain Injury r/o Sepsis Lactic Acidosis Elevated LFTs likely Ischemic Injury +Troponins likely Demand Ischemia Chronic Respiratory Failure COPD Autism Osteogenesis Imperfecta Anemia - antibiotics - monitor urine output, creatinine - lasix as needed - replete lytes - enteral feeds - DVT/GI prophylaxis - SUPPORTIVE care - prognosis chad BREWSTER
[2019-06-17 12:26] LABS: ANISOCYTOSIS 1+; MACROCYTOSIS 1+; PLATELET ESTIMATE NORMAL
--- NOTE | 2019-06-17 16:06 | CONSULT ---
Consult Consult Specialty:: PULM/CCM Referred by:: Dr. Nabil Rain Reason for Consultation:: Optimize for ODN. - History of Present Illness Chief Complaint: Devastating Anoxic Brain Injury History of Present Illness: Ms Fischer is a 53 yo woman w/ osteogenesis imperfecta, COPD, chronic pain, chronic constipation autism, SNF resident, s/p trach for respiratory arrest, admitted to [facility] now found down at SNF by RN in cardiorespiratory arrest. CPR x2 w/ ROSC now w/ severe anoxic encephalopathy. Family requesting to w/ draw. Pt being Transferred to ICU at request of ODN for a TLC, A-Line, frequent labs & repletions in preparation for imminent DCD. - History Source History Provided By: Medical Record Limitations to Obtaining History: Clinical Condition - Past Medical History Pulmonary: Yes: COPD, O2 Dependent, Other (Chronic Respiratory Failure s/p trach ) Gastrointestinal: Yes: GERD ...: No Musculoskeletal: Yes: Other ( Osteogenesis Imperfecta) - Alcohol/Substance Use Hx Alcohol Use: No History of Substance Use: reports: None - Smoking History Smoking history: Unknown if ever smoked - Social History ADL: Support Services History of Recent Travel: No Home Medications - Allergies Allergies/Adverse Reactions: Allergies Allergy/AdvReac Type Severity Reaction Status Date / Time birch Allergy Severe Rash Verified 06/13/19 00:48 iodine Allergy Severe Rash Verified 06/13/19 00:49 lactase [From Lactrase] Allergy Mild Rash Verified 06/13/19 00:50 - Home Medications Home Medications: Ambulatory Orders Acetaminophen 325 mg PO DAILY 06/13/19 Albuterol 2.5/Ipratropium 0.5 [Duoneb -] 1 puff PO DAILY 06/13/19 Ascorbic Acid [Vitamin C] 500 mg PO DAILY 06/13/19 Bisacodyl 1 gm MC DAILY 06/13/19 Calcium Carbonate - 650 mg PO DAILY 06/13/19 Ciclopirox/Urea/Camph/Men/Euc [Ciclodan 8% Kit] 34.6 ml TP DAILY 06/13/19 Cyclobenzaprine HCl 5 mg PO DAILY 06/13/19 Docusate Sodium 1 gm MC DAILY 06/13/19 Famotidine 20 mg PO DAILY 06/13/19 Fluoxetine HCl [Prozac -] 20 mg PO DAILY 06/13/19 Gabapentin 250 mg PO DAILY 06/13/19 Heparin - 5,000 unit SQ BID 06/13/19 Miconazole Nitrate [Secura Antifungal] 57 gm TP DAILY 06/13/19 Nystatin 1 each MC DAILY 06/13/19 Polyethylene Glycol 3350 [Laxaclear] 1,700 gm PO DAILY 06/13/19 Risperidone 0.25 mg PO DAILY 06/13/19 Senna [place] Extract [Senna] 176 mg PO DAILY 06/13/19 oxyCODONE HCL [Roxicodone -] 5 mg PO Q6H 06/13/19 Family Medical History Family History: Unable to Obtain (UNCON/UNRESP) Review of Systems Unable to obtain ROS, reason: UNCON/UNRESP Physical Exam Vital Signs: Vital Signs Temperature 98.6 F 06/17/19 12:00 Pulse Rate 92 H 06/17/19 12:00 Respiratory Rate 16 06/17/19 15:52 Blood Pressure 125/66 06/17/19 12:00 O2 Sat by Pulse Oximetry (%) 100 06/17/19 11:54 Intake & Output 06/14/19 06/15/19 06/16/19 06/17/19 23:59 23:59 23:59 23:59 Intake Total 1630 650 350 800 Output Total 650 895 400 150 Balance 980 -245 -50 650 Weight 53.479 kg 53.07 kg Constitutional: Yes: Cachectic, Thin HENT: Yes: WNL, Atraumatic, Normocephalic, Drooling Neck: Yes: Other (Trach) Cardiovascular: Yes: WNL, Regular Rate and Rhythm Respiratory: Yes: Mechanically Ventilated Gastrointestinal: Yes: WNL, Normal Bowel Sounds, Soft ...Rectal Exam: Yes: Deferred Renal/: Yes: WNL Breast(s): Yes: WNL Musculoskeletal: Yes: WNL Extremities: Yes: WNL Edema: No Peripheral Pulses WNL: Yes Integumentary: Yes: WNL Neurological: Yes: Unresponsive ...Motor Strength: WNL Labs: CBC, BMP 06/17/19 07:25 06/17/19 07:25 Microbiology 06/15/19 10:50 Blood - Peripheral Venous Blood Culture - Preliminary NO GROWTH OBTAINED AFTER 48 HOURS, INCUBATION TO CONTINUE FOR 3 DAYS. 06/15/19 10:20 Blood - Peripheral Venous Blood Culture - Preliminary NO GROWTH OBTAINED AFTER 48 HOURS, INCUBATION TO CONTINUE FOR 3 DAYS. 06/12/19 23:30 Blood - Peripheral Venous Blood Culture - Final Micrococcus & Related Species 06/12/19 23:30 Blood - Peripheral Venous Blood Culture - Preliminary NO GROWTH OBTAINED AFTER 96 HOURS, INCUBATION TO CONTINUE FOR 1 DAYS. 06/14/19 11:30 Sputum - Endotrachea Suction/Ventilator Gram Stain - Final 06/14/19 11:30 Sputum - Endotrachea Suction/Ventilator Sputum Culture - Final Pseudomonas Aeruginosa 06/13/19 00:50 Urine - Urine Clean Catch Urine Culture - Final NO GROWTH OBTAINED Assessment/Plan ASSESS: s/p Cardiopulmonary Arrest Anoxic Brain Injury r/o Sepsis Lactic Acidosis Elevated LFTs likely Ischemic Injury +Troponins likely Demand Ischemia Chronic Respiratory Failure COPD Autism Osteogenesis Imperfecta Anemia PLAN: - cont Vent support - antibiotics - monitor urine output, creatinine - lasix as needed - TLC - A-Line - replete lytes - enteral feeds - ODN - DVT/GI prophylaxis - SUPPORTIVE care - Imminent DCD [facility] ICU PULM/CCM
[2019-06-17] MEDS ORDERED: ACETAMINOPHEN 1000 MG/100 ML VIAL (NON FORMULARY) IVPB PRN ×2 (17:00→20:53)
[2019-06-17] MEDS ORDERED: ARTIFICIAL TEARS (POLYVINYL ALCOHOL) OPTH DROPS OU PRN (17:00)
[2019-06-17] MEDS ORDERED: IBUPROFEN 800 MG/8 ML IJ IVPB PRN (17:00)
[2019-06-17] MEDS: SODIUM CHLORIDE 1,000 ML IV SCH (18:04)
--- NOTE | 2019-06-17 18:04 | PROC ---
Central Line Insertion Indication: Poor Venous Access Risks and Benefits Explained: Yes Consent on Chart: Yes Central Line: Triple Lumen Catheter Anesthesia: 1% Lidocaine Sterile Technique: Yes Ultrasound Guided Assistance: No Position: Left Subclavian Post Insertion: Yes: Bilateral Breath Sounds, Bilateral Chest Expansion, Chest X-Ray Ordered Sterile Dressing Applied: Yes Remarks: EBL < 5cc. Pt tolerated the procedure well. I have no complications to report.
--- NOTE | 2019-06-17 18:09 | PROC ---
Procedure Note Procedure: ICU A-LINE INSERTION NOTE: INDICATION: Request of ODN & required frequent ABGs. CONSENT: Consent was obtained from the pt's Mother. The consent was signed, documented, & placed in the patient's chart. PROCEDURE: R Hand. Jacob's test confirmed good arterial blood flow in both the radial & ulnar arteries. The R wrist was secured in position, prepped, & draped in the usual sterile fashion. STOP TIME OUT A "Time Out" was conducted at the pt's bedside. The site was anesthetized w/ 3cc of 1% Lidocaine. A 20G needle was inserted into the R radial artery on the first attempt w/ pulsating bright red blood return. A 20G catheter was inserted into the artery via the Seldinger technique & the arterial line was connected. A good tracing & arterial waveform was confirmed. The catheter was secured in place w/ 2.0 Nylon sutures X2 and a sterile dressing was applied. Post procedure re-eval confirmed a pink warm R hand w/ cap-refill < 2sec in all 5 R hand digits. Pt tolerated the procedure well. I have no complications to report. Sim Frias, ACNP-BC [address] [facility] PUL / CCM
[2019-06-17 18:14] LABS: ARTERIAL BLD GAS O2 SATURATION 99.5 % (95-98); ARTERIAL BLOOD GAS BASE EXCESS 2.7 meq/l (-2-2); ARTERIAL BLOOD GAS PCO2 30.6 mmHg (35-45); ARTERIAL BLOOD GAS PO2 154 mmHg (80-100); ARTERIAL BLOOD GAS pH 7.53 (7.35-7.45)
[2019-06-17 18:15] LABS: ALLENS TEST POSITIVE
[2019-06-17 19:08] LABS: INR 1.31 (0.83-1.09); PROTHROMBIN TIME (PATIENT) 15.5 SEC (9.7-13.0)
[2019-06-17 19:11] LABS: ACTIVATED PTT 32.5 SECONDS (25.2-36.5)
[2019-06-17 19:39] LABS: BASO % 0.2 % (0-2.0); EOS % 0.1 % (0-4.5); LYMPH % 8.1 % (8-40); MCHC 33.4 g/dl (32.0-36.0); MEAN CELL VOLUME 95.9 fl (80-96); MEAN PLT VOLUME 10.2 fl (7.5-11.1); MONO % 6.9 % (3.8-10.2); NEUT % 84.7 % (42.8-82.8); PLATELET COUNT 263 K/MM3 (134-434); RBC 2.08 M/mm3 (3.60-5.2); RDW 17.9 % (11.6-15.6); WHITE BLOOD COUNT 15.2 K/mm3 (4.0-10.0)
[2019-06-17 19:43] LABS: HEMOGLOBIN 6.7 GM/dL (10.7-15.3)
[2019-06-17] MEDS ORDERED: SCOPOLAMINE HYDROBROMIDE 1 PATCH PATCH.TD72 TD SCH (19:45)
[2019-06-17 19:46] LABS: ALBUMIN 1.7 g/dl (3.4-5.0); BILIRUBIN,TOTAL 0.8 mg/dL (0.2-1); BLOOD UREA NITROGEN 18.4 mg/dL (7-18); CALCIUM 7.4 mg/dL (8.5-10.1); CREATININE 0.6 mg/dL (0.55-1.3); POTASSIUM 3.3 mmol/L (3.5-5.1)
[2019-06-17 20:31] LABS: BILIRUBIN,DIRECT 0.4 mg/dL (0.0-0.2)
[2019-06-17] MEDS: CHLORHEXIDINE GLUCONATE 4% CLEANSER FOR DECOLONIZATION TP SCH (22:08)
[2019-06-17] MEDS: MUPIROCIN 2% TOPICAL OINTMENT FOR DECOLONIZATION NS SCH (22:09)
[2019-06-17] MEDS: SCOPOLAMINE HYDROBROMIDE 1 PATCH PATCH.TD72 TD SCH (22:12)
[2019-06-17 23:43] LABS: HYALINE CASTS 11 /lpf (0-8); URINE APPEARANCE TURBID; URINE BACTERIA 2.7 /hpf (NEGATIVE); URINE BILIRUBIN NEGATIVE (NEGATIVE); URINE COLOR YELLOW; URINE GLUCOSE (UA) NEGATIVE (NEGATIVE); URINE KETONE TRACE (NEGATIVE); URINE LEUK ESTERASE 1+ (NEGATIVE); URINE NITRITE NEGATIVE (NEGATIVE); URINE PROTEIN 1+ (NEGATIVE); URINE RBC 4 /hpf (0-4); URINE UROBILINOGEN 0.2 mg/dL (0.2-1.0); URINE WBC 14 /hpf (0-5)
[2019-06-18] MEDS ORDERED: PIPERACILLIN/TAZOBACTAM 3.375 GM VIAL IVPB ONE ×3 (01:48→19:34)
[2019-06-18] MEDS ORDERED: DEXTROSE 5%-WATER - 50 ML IVPB ONE ×3 (01:49→19:34)
[2019-06-18] MEDS: MORPHINE SULFATE 2 MG/ML VIAL IVPUSH SCH ×4 (02:00→21:08)
[2019-06-18] MEDS: PIPERACILLIN/TAZOB 3.375 GM 3.375 GM in DEXTROSE 5%-WATER - 50 ML IVPB SCH ×3 (02:03→19:42)
[2019-06-18 06:07] LABS: BASO % 0.1 % (0-2.0); EOS % 0.3 % (0-4.5); HEMATOCRIT 24.3 % (32.4-45.2); HEMOGLOBIN 8.2 GM/dL (10.7-15.3); MCH 31.2 pg (25.7-33.7); MCHC 33.5 g/dl (32.0-36.0); MEAN CELL VOLUME 92.9 fl (80-96); MEAN PLT VOLUME 9.8 fl (7.5-11.1); MONO % 6.8 % (3.8-10.2); NEUT % 84.8 % (42.8-82.8); PLATELET COUNT 253 K/MM3 (134-434); RBC 2.62 M/mm3 (3.60-5.2); RDW 17.8 % (11.6-15.6)
[2019-06-18 06:35] LABS: INR 1.23 (0.83-1.09); PROTHROMBIN TIME (PATIENT) 14.5 SEC (9.7-13.0)
[2019-06-18] MEDS: VANCOMYCIN 1 GRAM (PRE-DOCKED) 1,000 MG/250 ML BAG IVPB SCH ×2 (06:38→16:38)
[2019-06-18 06:39] LABS: ALBUMIN 1.8 g/dl (3.4-5.0); ALK PHOS > 1000 U/L (45-117); ANION GAP 9 MMOL/L (8-16); BILIRUBIN,TOTAL 0.7 mg/dL (0.2-1); BLOOD UREA NITROGEN 22.6 mg/dL (7-18); CALCIUM 7.2 mg/dL (8.5-10.1); CHLORIDE 112 mmol/L (98-107); CO2 24 mmol/L (21-32); CREATININE 0.7 mg/dL (0.55-1.3); GLUCOSE,RANDOM 119 mg/dL (74-106); POTASSIUM 3.4 mmol/L (3.5-5.1); SGOT/AST 156 U/L (15-37); SGPT/ALT 131 U/L (13-61); SODIUM 145 mmol/L (136-145); TOT PROT 5.3 g/dl (6.4-8.2)
[2019-06-18 06:42] LABS: ALBUMIN 1.8 g/dl (3.4-5.0); ALK PHOS > 1000 U/L (45-117); BILIRUBIN,DIRECT 0.3 mg/dL (0.0-0.2); BILIRUBIN,TOTAL 0.7 mg/dL (0.2-1); SGOT/AST 154 U/L (15-37); SGPT/ALT 131 U/L (13-61); TOT PROT 5.1 g/dl (6.4-8.2)
[2019-06-18 06:46] LABS: ARTERIAL BLD GAS O2 SATURATION 99.3 % (95-98); ARTERIAL BLOOD GAS BASE EXCESS -0.8 meq/l (-2-2); ARTERIAL BLOOD GAS PCO2 29.1 mmHg (35-45); ARTERIAL BLOOD GAS PO2 159 mmHg (80-100); ARTERIAL BLOOD GAS pH 7.49 (7.35-7.45)
[2019-06-18 07:29] LABS: AMYLASE 229 U/L (25-115); LIPASE 1239 U/L (73-393)
[2019-06-18] MEDS: ALBUTEROL SO4 2.5/IPRATROPIUM 0.5 INH SOL 3 ML VIAL.NEB. NEB SCH ×4 (08:00→19:42)
--- NOTE | 2019-06-18 08:35 | PN ---
Progress Note (short form) - Note Progress Note: Pulm/CCM Pt seen and examined in the ICU. No changes noted. Reported emesis o/n. Feeds held. No further emesis. TLC & A-Line done yesterday a/p request of ODN. Awaiting authorization from [facility] and [facility] for possible DCD. Current Medications Acetaminophen (Ofirmev Injection -) 1,000 mg IVPB Q6H PRN PRN Reason: FEVER Last Admin: 06/17/19 22:07 Dose: 1,000 mg Albuterol/Ipratropium (Duoneb -) 1 amp NEB RQID JUAN ALBERTO Last Admin: 06/17/19 20:10 Dose: 1 amp Artificial Tears (Artificial Tears) 1 drop OU BID PRN PRN Reason: DRY EYES Chlorhexidine Gluconate (Hibiclens For Decolonization -) 1 applic TP HS JUAN ALBERTO Last Admin: 06/17/19 22:08 Dose: 1 applic Sodium Chloride (Normal Saline -) 1,000 mls @ 50 mls/hr IV ASDIR JUAN ALBERTO Last Admin: 06/17/19 18:04 Dose: 50 mls/hr Vancomycin HCl (Vancomycin (Pre-Docked)) 1,000 mg in 250 mls @ 166.667 mls/hr IVPB Q12H JUAN ALBERTO; Protocol Last Admin: 06/18/19 06:38 Dose: 166.667 mls/hr Piperacillin Sod/Tazobactam (Sod 3.375 gm/ Dextrose) 50 mls @ 100 mls/hr IVPB Q8H-IV JUAN ALBERTO; Protocol Piperacillin Sod/Tazobactam (Sod 3.375 gm/ Dextrose) 50 mls @ 100 mls/hr IVPB Q8H-IV JUAN ALBERTO; Protocol Stop: 06/18/19 10:29 Last Admin: 06/18/19 02:03 Dose: 100 mls/hr Ibuprofen (Caldolor Injection -) 400 mg IVPB Q6H PRN PRN Reason: FEVER Morphine Sulfate (Morphine Sulfate) 2 mg IVPUSH Q6H JUAN ALBERTO Last Admin: 06/18/19 02:00 Dose: Not Given Mupirocin (Bactroban Ointment (For Decolonization) -) 1 applic NS BID JUAN ALBERTO Stop: 06/22/19 21:59 Last Admin: 06/17/19 22:09 Dose: 1 applic Scopolamine HBr (Transderm-Scop -) 1 patch TD Q72H JUAN ALBERTO Last Admin: 06/17/19 22:12 Dose: 1 patch Vital Signs Temperature 98.6 F 06/18/19 02:00 Pulse Rate 80 06/18/19 08:00 Respiratory Rate 16 06/18/19 08:00 Blood Pressure 112/50 L 06/18/19 08:00 O2 Sat by Pulse Oximetry (%) 99 06/17/19 20:05 Intake & Output 06/15/19 06/16/19 06/17/19 06/18/19 23:59 23:59 23:59 23:59 Intake Total 629 493 4449 350 Output Total 895 400 350 200 Balance -245 -50 750 150 Weight 53.07 kg 55.934 kg Exam: Gen:Ill- apppearing, pale, uncon/unresp, on the Vent HEENT: Pin-point, glazed, MMM Resp: Ronchi CV:nml S1S2 Abd:Hypo-active BS, S/S N/T N/D X4Q Ext: + Pulses, WWPX4, +1 peripheral edema Neuro: severe anoxic encephalopathy CBC, BMP 06/18/19 05:45 06/18/19 05:45 CXR 06/17: Tracheostomy tube in position above the isabell. Cervical fusion rods and Connolly gabby in place with upper thoracic dextroscoliosis noted. Normal heart size, no mediastinal widening. Left central venous catheter in position with distal tip overlying the superior vena cava, no pneumothorax. Blunting in both costophrenic sulci could represent a small amount of fluid at the bases. Right pleural thickening seen. No definite consolidation. Component of atelectasis left lung base difficult to exclude compared to last exam. Assessment/Plan ASSESS: s/p Cardiopulmonary Arrest Anoxic Brain Injury r/o Sepsis Lactic Acidosis Elevated LFTs likely Ischemic Injury +Troponins likely Demand Ischemia Chronic Respiratory Failure COPD Autism Osteogenesis Imperfecta Anemia PLAN: - cont Vent support - antibiotics - monitor urine output, creatinine - lasix as needed - replete lytes - enteral feeds as tolerated - Lubricate eyes - F/u w/ ODN - DVT/GI prophylaxis - SUPPORTIVE care - F/u w/ [facility] and [facility] RE: Imminent DCD
[2019-06-18] MEDS ORDERED: ARTIFICIAL TEARS (POLYVINYL ALCOHOL) OPTH DROPS OU PRN (09:02)
--- NOTE | 2019-06-18 09:54 | PN ---
Progress Note, Physician - Current Medication List Current Medications: Active Medications Acetaminophen (Ofirmev Injection -) 1,000 mg IVPB Q6H PRN PRN Reason: FEVER Last Admin: 06/17/19 22:07 Dose: 1,000 mg Albuterol/Ipratropium (Duoneb -) 1 amp NEB RQID JUAN ALBERTO Last Admin: 06/17/19 20:10 Dose: 1 amp Artificial Tears (Artificial Tears) 1 drop OU QID PRN PRN Reason: DRY EYES Chlorhexidine Gluconate (Hibiclens For Decolonization -) 1 applic TP HS JUAN ALBERTO Last Admin: 06/17/19 22:08 Dose: 1 applic Sodium Chloride (Normal Saline -) 1,000 mls @ 50 mls/hr IV ASDIR JUAN ALBERTO Last Admin: 06/17/19 18:04 Dose: 50 mls/hr Vancomycin HCl (Vancomycin (Pre-Docked)) 1,000 mg in 250 mls @ 166.667 mls/hr IVPB Q12H JUAN ALBERTO; Protocol Last Admin: 06/18/19 06:38 Dose: 166.667 mls/hr Piperacillin Sod/Tazobactam (Sod 3.375 gm/ Dextrose) 50 mls @ 100 mls/hr IVPB Q8H-IV JUAN ALBERTO; Protocol Piperacillin Sod/Tazobactam (Sod 3.375 gm/ Dextrose) 50 mls @ 100 mls/hr IVPB Q8H-IV JUAN ALBERTO; Protocol Stop: 06/18/19 10:29 Last Admin: 06/18/19 02:03 Dose: 100 mls/hr Ibuprofen (Caldolor Injection -) 400 mg IVPB Q6H PRN PRN Reason: FEVER Morphine Sulfate (Morphine Sulfate) 2 mg IVPUSH Q6H JUAN ALBERTO Last Admin: 06/18/19 02:00 Dose: Not Given Mupirocin (Bactroban Ointment (For Decolonization) -) 1 applic NS BID JUAN ALBERTO Stop: 06/22/19 21:59 Last Admin: 06/17/19 22:09 Dose: 1 applic Scopolamine HBr (Transderm-Scop -) 1 patch TD Q72H JUAN ALBERTO Last Admin: 06/17/19 22:12 Dose: 1 patch - Objective Vital Signs: Vital Signs Temperature 98.6 F 06/18/19 02:00 Pulse Rate 79 06/18/19 09:00 Respiratory Rate 16 06/18/19 09:29 Blood Pressure 106/49 L 06/18/19 09:00 O2 Sat by Pulse Oximetry (%) 100 06/18/19 09:29 Cardiovascular: Yes: S1, S2 Respiratory: Yes: Mechanically Ventilated Gastrointestinal: Yes: Normal Bowel Sounds, Soft Neurological: Yes: Unresponsive Labs: CBC, BMP 06/18/19 05:45 06/18/19 05:45 INR, PTT INR 1.23 (0.83-1.09) H 06/18/19 05:45 Fibrinogen 455.0 mg/dL (238-498) 06/18/19 05:45 Problem List - Problems (1) Cardiac arrest Code(s): I46.9 - CARDIAC ARREST, CAUSE UNSPECIFIED (2) Sepsis Code(s): A41.9 - SEPSIS, UNSPECIFIED ORGANISM (3) Autism disorder Code(s): F84.0 - AUTISTIC DISORDER (4) COPD (chronic obstructive pulmonary disease) Code(s): J44.9 - CHRONIC OBSTRUCTIVE PULMONARY DISEASE, UNSPECIFIED (5) Chronic respiratory failure with hypoxia and hypercapnia Code(s): J96.11 - CHRONIC RESPIRATORY FAILURE WITH HYPOXIA; J96.12 - CHRONIC RESPIRATORY FAILURE WITH HYPERCAPNIA (6) Transaminitis Code(s): R74.0 - NONSPEC ELEV OF LEVELS OF TRANSAMNS & LACTIC ACID DEHYDRGNSE Assessment/Plan - Problems (1) COPD (chronic obstructive pulmonary disease) Assessment/Plan: -Pulm on board -mechanically ventilated -keep SpO2 >90% -Bronchodilators Code(s): J44.9 - CHRONIC OBSTRUCTIVE PULMONARY DISEASE, UNSPECIFIED (2) Cardiac arrest Assessment/Plan: -completed hypothermia protocol -Cardiology on board Code(s): I46.9 - CARDIAC ARREST, CAUSE UNSPECIFIED (3) Chronic respiratory failure with hypoxia and hypercapnia Assessment/Plan: -Pulm on board -mechanically ventilated -keep SpO2 >90% -Bronchodilators Code(s): J96.11 - CHRONIC RESPIRATORY FAILURE WITH HYPOXIA; J96.12 - CHRONIC RESPIRATORY FAILURE WITH HYPERCAPNIA (4) Sepsis Assessment/Plan: -ID on board -afebrile -tylenol PRN for temp >100F -BC and UC Microbiology 06/12/19 23:30 Blood - Peripheral Venous Blood Culture - Final NO GROWTH AFTER 5 DAYS INCUBATION 06/15/19 10:50 Blood - Peripheral Venous Blood Culture - Preliminary NO GROWTH OBTAINED AFTER 48 HOURS, INCUBATION TO CONTINUE FOR 3 DAYS. 06/15/19 10:20 Blood - Peripheral Venous Blood Culture - Preliminary NO GROWTH OBTAINED AFTER 48 HOURS, INCUBATION TO CONTINUE FOR 3 DAYS. 06/12/19 23:30 Blood - Peripheral Venous Blood Culture - Final Micrococcus & Related Species 06/14/19 11:30 Sputum - Endotrachea Suction/Ventilator Gram Stain - Final 06/14/19 11:30 Sputum - Endotrachea Suction/Ventilator Sputum Culture - Final Pseudomonas Aeruginosa 06/13/19 00:50 Urine - Urine Clean Catch Urine Culture - Final NO GROWTH OBTAINED -Zosyn--Abx per ID Code(s): A41.9 - SEPSIS, UNSPECIFIED ORGANISM (5) Transaminitis Assessment/Plan: -GI on board -AST 163, ALT 113, Alk Phos 580 -Abd US shows mild CBD dilatation 0.8cm Code(s): R74.0 - NONSPEC ELEV OF LEVELS OF TRANSAMNS & LACTIC ACID DEHYDRGNSE FOR ORGAN TRANSPLANT EVAL INITIATED--MONITOR IN ICU-LABS-I&O
[2019-06-18] MEDS: KCL 10 MEQ IVPB 10 MEQ/100 ML INFUS.BAG IVPB SCH ×2 (10:15→11:25)
[2019-06-18] MEDS: MUPIROCIN 2% TOPICAL OINTMENT FOR DECOLONIZATION NS SCH ×2 (10:15→21:08)
[2019-06-18] MEDS ORDERED: HYPROMELLOSE OU PRN (13:10)
[2019-06-18 14:42] LABS: BLOOD UREA NITROGEN 22.2 mg/dL (7-18); CALCIUM 7.5 mg/dL (8.5-10.1); CREATININE 0.9 mg/dL (0.55-1.3); POTASSIUM 3.8 mmol/L (3.5-5.1)
[2019-06-18] MEDS: SODIUM CHLORIDE 1,000 ML IV SCH (18:20)
[2019-06-18] MEDS: CHLORHEXIDINE GLUCONATE 4% CLEANSER FOR DECOLONIZATION TP SCH (21:08)
[2019-06-18 22:59] LABS: BLOOD UREA NITROGEN 24.4 mg/dL (7-18); POTASSIUM 3.6 mmol/L (3.5-5.1)
[2019-06-18 23:01] LABS: CALCIUM 6.9 mg/dL (8.5-10.1)
[2019-06-19] MEDS ORDERED: PIPERACILLIN/TAZOBACTAM 3.375 GM VIAL IVPB ONE ×3 (00:48→17:36)
[2019-06-19] MEDS ORDERED: DEXTROSE 5%-WATER - 50 ML IVPB ONE ×3 (00:49→17:36)
[2019-06-19] MEDS: PIPERACILLIN/TAZOB 3.375 GM 3.375 GM in DEXTROSE 5%-WATER - 50 ML IVPB SCH ×3 (01:28→18:10)
[2019-06-19] MEDS: MORPHINE SULFATE 2 MG/ML VIAL IVPUSH SCH ×5 (02:08→20:43)
[2019-06-19] MEDS: VANCOMYCIN 1 GRAM (PRE-DOCKED) 1,000 MG/250 ML BAG IVPB SCH ×2 (04:44→16:06)
[2019-06-19 04:47] LABS: BLOOD UREA NITROGEN 25.4 mg/dL (7-18); CALCIUM 7.3 mg/dL (8.5-10.1); CREATININE 1.1 mg/dL (0.55-1.3); POTASSIUM 3.6 mmol/L (3.5-5.1)
[2019-06-19 06:39] LABS: HEMATOCRIT 20.9 % (32.4-45.2); HEMOGLOBIN 7.1 GM/dL (10.7-15.3); MCH 31.7 pg (25.7-33.7); MEAN CELL VOLUME 93.3 fl (80-96); PLATELET COUNT 240 K/MM3 (134-434); RBC 2.24 M/mm3 (3.60-5.2); RDW 18.2 % (11.6-15.6); WHITE BLOOD COUNT 12.9 K/mm3 (4.0-10.0)
[2019-06-19 07:08] LABS: ALBUMIN 1.6 g/dl (3.4-5.0); BILIRUBIN,TOTAL 0.5 mg/dL (0.2-1); BLOOD UREA NITROGEN 25.5 mg/dL (7-18); CALCIUM 7.1 mg/dL (8.5-10.1); CREATININE 1.1 mg/dL (0.55-1.3); POTASSIUM 3.6 mmol/L (3.5-5.1); TOT PROT 4.9 g/dl (6.4-8.2)
[2019-06-19] MEDS: ALBUTEROL SO4 2.5/IPRATROPIUM 0.5 INH SOL 3 ML VIAL.NEB. NEB SCH ×4 (07:30→19:58)
[2019-06-19] MEDS: MUPIROCIN 2% TOPICAL OINTMENT FOR DECOLONIZATION NS SCH ×2 (09:02→22:23)
[2019-06-19 10:38] LABS: BLOOD UREA NITROGEN 26.3 mg/dL (7-18); CALCIUM 7.1 mg/dL (8.5-10.1); CREATININE 1.2 mg/dL (0.55-1.3); POTASSIUM 3.3 mmol/L (3.5-5.1)
[2019-06-19] MEDS ORDERED: ARTIFICIAL TEARS (POLYVINYL ALCOHOL) OPTH DROPS OU PRN (11:19)
[2019-06-19] MEDS ORDERED: POTASSIUM CHLORIDE 20 MEQ PREMIX IVPB 100 ML IVPB ONE (11:19)
--- NOTE | 2019-06-19 11:50 | PN ---
Teaching Attending Note Name of Resident: Kody Ross ATTENDING PHYSICIAN STATEMENT I saw and evaluated the patient. I reviewed the resident's note and discussed the case with the resident. I agree with the resident's findings and plan as documented. SUBJECTIVE: Patient seen and examined in the ICU. AC Mode of vent. No acute events overnight. Processing ongoing for DCD. Intake & Output 06/16/19 06/17/19 06/18/19 06/19/19 23:59 23:59 23:59 23:59 Intake Total 350 1100 1760 650 Output Total 400 350 750 100 Balance -50 750 1010 550 Weight 123 lb 5 oz 129 lb 8 oz Last Vital Signs Temp Pulse Resp BP Pulse Ox 98.5 F 73 16 99/54 L 100 06/19/19 11:00 06/19/19 11:00 06/19/19 11:00 06/19/19 11:00 06/19/19 08:45 Active Medications Acetaminophen (Ofirmev Injection -) 1,000 mg IVPB Q6H PRN PRN Reason: FEVER Last Admin: 06/17/19 22:07 Dose: 1,000 mg Albuterol/Ipratropium (Duoneb -) 1 amp NEB RQID JUAN ALBERTO Last Admin: 06/19/19 07:30 Dose: 1 amp Artificial Tears (Artificial Tears) 1 drop OU Q4H JUAN ALBERTO Chlorhexidine Gluconate (Hibiclens For Decolonization -) 1 applic TP HS JUAN ALBERTO Last Admin: 06/18/19 21:08 Dose: 1 applic Sodium Chloride (Normal Saline -) 1,000 mls @ 50 mls/hr IV ASDIR JUAN ALBERTO Last Admin: 06/18/19 18:20 Dose: 50 mls/hr Vancomycin HCl (Vancomycin (Pre-Docked)) 1,000 mg in 250 mls @ 166.667 mls/hr IVPB Q12H JUAN ALBERTO; Protocol Last Admin: 06/19/19 04:44 Dose: 166.667 mls/hr Piperacillin Sod/Tazobactam (Sod 3.375 gm/ Dextrose) 50 mls @ 100 mls/hr IVPB Q8H-IV JUAN ALBERTO; Protocol Last Admin: 06/19/19 09:01 Dose: 100 mls/hr Ibuprofen (Caldolor Injection -) 400 mg IVPB Q6H PRN PRN Reason: FEVER Morphine Sulfate (Morphine Sulfate) 2 mg IVPUSH Q6H [facility] Last Admin: 06/19/19 09:03 Dose: 2 mg Mupirocin (Bactroban Ointment (For Decolonization) -) 1 applic NS BID [facility] Stop: 06/22/19 21:59 Last Admin: 06/19/19 09:02 Dose: 1 applic Potassium Chloride (Potassium Chloride 20 Meq Premix Ivpb -) 20 meq IVPB Q1H [facility] Stop: 06/19/19 12:31 Scopolamine HBr (Transderm-Scop -) 1 patch TD Q72H [facility] Last Admin: 06/17/19 22:12 Dose: 1 patch Exam: Gen: Vented, minimally responsive to noxious stimuli HEENT: pupils constricted Resp: few scatted Ronchi CV: S1S2 Abd:Hypo-active BS, S/S N/T N/D X4Q Ext: + Pulses, WWPX4, +1 peripheral edema Neuro: Minimally responsive to noxious stimuli Laboratory Results - last 24 hr 06/18/19 06/18/19 06/19/19 14:00 22:20 04:05 WBC RBC Hgb Hct MCV MCH MCHC RDW Plt Count MPV Sodium 144 143 145 Potassium 3.8 3.6 3.6 Chloride 112 H 111 H 110 H Carbon Dioxide 25 23 24 Anion Gap 8 10 10 BUN 22.2 H 24.4 H 25.4 H Creatinine 0.9 1.0 1.1 Est GFR (CKD-EPI)AfAm 83.43 73.45 65.45 Est GFR (CKD-EPI)NonAf 71.98 63.37 56.47 Random Glucose 120 H 134 H 136 H Calcium 7.5 L 6.9 L* 7.3 L Total Bilirubin AST ALT Alkaline Phosphatase Total Protein Albumin 06/19/19 06/19/19 06/19/19 05:25 05:25 09:48 WBC 12.9 H RBC 2.24 L Hgb 7.1 L Hct 20.9 L MCV 93.3 MCH 31.7 MCHC 34.0 RDW 18.2 H Plt Count 240 MPV 10.0 Sodium 141 142 Potassium 3.6 3.3 L Chloride 108 H 110 H Carbon Dioxide 24 23 Anion Gap 10 10 BUN 25.5 H 26.3 H Creatinine 1.1 1.2 Est GFR (CKD-EPI)AfAm 65.45 58.92 Est GFR (CKD-EPI)NonAf 56.47 50.84 Random Glucose 162 H 166 H Calcium 7.1 L 7.1 L Total Bilirubin 0.5 AST 81 H ALT 92 H Alkaline Phosphatase 766 H Total Protein 4.9 L Albumin 1.6 L Assessment/Plan ASSESS: s/p Cardiopulmonary Arrest Anoxic Brain Injury r/o Sepsis Lactic Acidosis Elevated LFTs likely Ischemic Injury +Troponins likely Demand Ischemia Chronic Respiratory Failure COPD Autism Osteogenesis Imperfecta Anemia PLAN: - cont Vent support - antibiotics - monitor urine output, creatinine - lasix as needed - replete lytes - DVT/GI prophylaxis - Process for DCD ongoing Dr Aguilar Critical care time spent in reviewing chart, evaluating patient and formulating plan - 36 minutes.
[2019-06-19] MEDS: ARTIFICIAL TEARS (POLYVINYL ALCOHOL) OPTH DROPS OU SCH ×4 (13:13→23:38)
[2019-06-19] MEDS: POTASSIUM CHLORIDE 20 MEQ PREMIX IVPB 100 ML IVPB SCH ×2 (13:14→14:15)
--- NOTE | 2019-06-19 13:57 | PN ---
Progress Note, Physician Chief Complaint: patient seen and examiend in icu AC mode on vent - Current Medication List Current Medications: Active Medications Acetaminophen (Ofirmev Injection -) 1,000 mg IVPB Q6H PRN PRN Reason: FEVER Last Admin: 06/17/19 22:07 Dose: 1,000 mg Albuterol/Ipratropium (Duoneb -) 1 amp NEB RQID JUAN ALBERTO Last Admin: 06/19/19 11:50 Dose: 1 amp Artificial Tears (Artificial Tears) 1 drop OU Q4H JUAN ALBERTO Last Admin: 06/19/19 13:13 Dose: Not Given Chlorhexidine Gluconate (Hibiclens For Decolonization -) 1 applic TP HS JUAN ALBERTO Last Admin: 06/18/19 21:08 Dose: 1 applic Sodium Chloride (Normal Saline -) 1,000 mls @ 50 mls/hr IV ASDIR JUAN ALBERTO Last Admin: 06/18/19 18:20 Dose: 50 mls/hr Vancomycin HCl (Vancomycin (Pre-Docked)) 1,000 mg in 250 mls @ 166.667 mls/hr IVPB Q12H JUAN ALBERTO; Protocol Last Admin: 06/19/19 04:44 Dose: 166.667 mls/hr Piperacillin Sod/Tazobactam (Sod 3.375 gm/ Dextrose) 50 mls @ 100 mls/hr IVPB Q8H-IV JUAN ALBERTO; Protocol Last Admin: 06/19/19 09:01 Dose: 100 mls/hr Ibuprofen (Caldolor Injection -) 400 mg IVPB Q6H PRN PRN Reason: FEVER Morphine Sulfate (Morphine Sulfate) 2 mg IVPUSH Q6H JUAN ALBERTO Last Admin: 06/19/19 09:03 Dose: 2 mg Mupirocin (Bactroban Ointment (For Decolonization) -) 1 applic NS BID JUAN ALBERTO Stop: 06/22/19 21:59 Last Admin: 06/19/19 09:02 Dose: 1 applic Scopolamine HBr (Transderm-Scop -) 1 patch TD Q72H JUAN ALBERTO Last Admin: 06/17/19 22:12 Dose: 1 patch - Objective Vital Signs: Vital Signs Temperature 98.5 F 06/19/19 11:00 Pulse Rate 74 06/19/19 13:00 Respiratory Rate 16 06/19/19 13:00 Blood Pressure 96/38 L 06/19/19 13:00 O2 Sat by Pulse Oximetry (%) 99 06/19/19 12:45 Cardiovascular: Yes: S1, S2 Respiratory: Yes: Mechanically Ventilated Gastrointestinal: Yes: Normal Bowel Sounds, Soft Labs: CBC, BMP 06/19/19 05:25 06/19/19 09:48 INR, PTT INR 1.23 (0.83-1.09) H 06/18/19 05:45 Fibrinogen 455.0 mg/dL (238-498) 06/18/19 05:45 Problem List - Problems (1) Anoxic brain damage Assessment/Plan: papers signed today family at bedside [facility]LS came the 48 hr window period continue vent support dvt ppx iv abx Code(s): G93.1 - ANOXIC BRAIN DAMAGE, NOT ELSEWHERE CLASSIFIED
[2019-06-19] MEDS ORDERED: POTASSIUM CHLORIDE ORAL LIQUID 20 MEQ/15 ML GT ONE (15:00)
[2019-06-19 15:15] VITALS: BMI 25.2
--- NOTE | 2019-06-19 16:02 | PN ---
Physical Exam: SUBJECTIVE: Patient seen and examined at bedside in the ICU. Patient unconscious and unable to follow instructions. OBJECTIVE: Vital Signs Period Temp Pulse Resp BP Sys/Oliva Pulse Ox Last 24 Hr 98.1 F-98.5 F 70-81 16-29 88-110/38-55 99-100 GENERAL: The patient is sedated, intubated, minimally responsive to painful stimuli HEAD: Normal with no signs of trauma. NECK: Trachea midline, full range of motion, supple. LUNGS: Vented. Breath sounds equal, no accessory muscle use. HEART: Regular rate and rhythm, S1, S2 without murmur, rub or gallop. ABDOMEN: Soft, nontender, nondistended, no guarding, no rebound, no masses. EXTREMITIES: 2+ pulses, warm, well-perfused, 1+ pitting edema bilaterally. NEUROLOGICAL: Unable to assess. PSYCH: Unable to assess. SKIN: Warm, dry, normal turgor, no rashes or lesions noted Laboratory Results - last 24 hr 06/18/19 06/19/19 06/19/19 22:20 04:05 05:25 WBC 12.9 H RBC 2.24 L Hgb 7.1 L Hct 20.9 L MCV 93.3 MCH 31.7 MCHC 34.0 RDW 18.2 H Plt Count 240 MPV 10.0 Sodium 143 145 Potassium 3.6 3.6 Chloride 111 H 110 H Carbon Dioxide 23 24 Anion Gap 10 10 BUN 24.4 H 25.4 H Creatinine 1.0 1.1 Est GFR (CKD-EPI)AfAm 73.45 65.45 Est GFR (CKD-EPI)NonAf 63.37 56.47 Random Glucose 134 H 136 H Calcium 6.9 L* 7.3 L Total Bilirubin AST ALT Alkaline Phosphatase Total Protein Albumin 06/19/19 06/19/19 05:25 09:48 WBC RBC Hgb Hct MCV MCH MCHC RDW Plt Count MPV Sodium 141 142 Potassium 3.6 3.3 L Chloride 108 H 110 H Carbon Dioxide 24 23 Anion Gap 10 10 BUN 25.5 H 26.3 H Creatinine 1.1 1.2 Est GFR (CKD-EPI)AfAm 65.45 58.92 Est GFR (CKD-EPI)NonAf 56.47 50.84 Random Glucose 162 H 166 H Calcium 7.1 L 7.1 L Total Bilirubin 0.5 AST 81 H ALT 92 H Alkaline Phosphatase 766 H Total Protein 4.9 L Albumin 1.6 L Active Medications Generic Name Dose Route Start Last Admin Trade Name Freq PRN Reason Stop Dose Admin Acetaminophen 1,000 mg 06/17/19 20:53 06/17/19 22:07 Ofirmev Injection - IVPB 1,000 mg Q6H PRN Administration FEVER Albuterol/Ipratropium 1 amp 06/17/19 20:00 06/19/19 11:50 Duoneb - NEB 1 amp RQID JUAN ALBERTO Administration Artificial Tears 1 drop 06/19/19 11:26 06/19/19 13:13 Artificial Tears OU Not Given Q4H JUAN ALBERTO Chlorhexidine Gluconate 1 applic 06/17/19 22:00 06/18/19 21:08 Hibiclens For Decolonization - TP 1 applic HS JUAN ALBERTO Administration Sodium Chloride 1,000 mls @ 50 mls/hr 06/17/19 17:00 06/18/19 18:20 Normal Saline - IV 50 mls/hr ASDIR JUAN ALBERTO Administration Vancomycin HCl 1,000 mg in 250 mls @ 166.667 mls/hr 06/18/19 04:45 06/19/19 04:44 Vancomycin (Pre-Docked) IVPB 166.667 mls/hr Q12H JUAN ALBERTO Administration Protocol Piperacillin Sod/Tazobactam 50 mls @ 100 mls/hr 06/18/19 19:30 06/19/19 09:01 Sod 3.375 gm/ Dextrose IVPB 100 mls/hr Q8H-IV JUAN ALBERTO Administration Protocol Ibuprofen 400 mg 06/17/19 17:00 Caldolor Injection - IVPB Q6H PRN FEVER Morphine Sulfate 2 mg 06/17/19 21:00 06/19/19 09:03 Morphine Sulfate IVPUSH 2 mg Q6H JUAN ALBERTO Administration Mupirocin 1 applic 06/17/19 22:00 06/19/19 09:02 Bactroban Ointment (For Decolonization) - NS 06/22/19 21:59 1 applic BID JUAN ALBERTO Administration Scopolamine HBr 1 patch 06/17/19 19:45 06/17/19 22:12 Transderm-Scop - TD 1 patch Q72H JUAN ALBERTO Administration ASSESSMENT/PLAN: 53 year old female with PMH significant for Osteogenesis Imperfecta, COPD, Chronic Respiratory Failure s/p Trach, Autism Spectrum Disorder, Wedge Compression Fracture of T2 who presented to the ER from [facility] after a cardiac arrest, s/p ROSC. Suffering from anoxic brain injury, awaiting DCD ( Donor after Cardiac ) on Wednesday. #Neuro - Anoxic Brain Injury 2/2 cardiopulmonary arrest #ID - Afebrile, Tylenol PRN for temp > 100 - WBC down to 12.9 from 14.0 yesterday - Cont Zosyn 3.375mg and Vanco 1,000mg - Blood cx pending - Sputum cx Pseudomonas Aeruginosa - Mupirocin in nares for decolonization - ID on board #Cardio - Hypothermia protocol completed - Cardio on board #Pulm - ABG and CMP placed for 4 AM - Continue vent support, keep SpO2 >90% - Continue duonebs - Lasix as needed - PCP submitted terminal extubation papers, pending approval - Pulm on board #GI - AST/ALT down to 81/92 #Renal - Cr 1.2, has been slowly increasing the past few days. Urine output has been 25ml/hr the past 10 hours. - N/S @ 50 switched to RL @ 100 plus 250ml RL bolus. Urine output increased to 50ml/hour - Continue to monitor urine output and Cr #FEN - RL 250 bolus, followed by RL @ 100 ml/hr (switched from N/S @ 50) - K 3.3, administered 40mEQ KCl, jumped to 5.3 #PPX - Heparin 5000 Q12H #Dispo - DCD pending, waiting 48h as per regulations Visit type - Emergency Visit Emergency Visit: Yes ED Registration Date: 06/13/19 Care time: The patient presented to the Emergency Department on the above date and was hospitalized for further evaluation of their emergent condition. - New Patient This patient is new to me today: Yes Date on this admission: 06/20/19 - Critical Care Critical Care patient: Yes Total Critical Care Time (in minutes): 37 Critical Care Statement: The care of this patient involved high complexity decision making to prevent further life threatening deterioration of the patient 's condition and/or to evaluate & treat vital organ system(s) failure or risk of failure. ATTENDING PHYSICIAN STATEMENT I saw and evaluated the patient. I reviewed the resident's note and discussed the case with the resident. I agree with the resident's findings and plan as documented. SUBJECTIVE: OBJECTIVE: ASSESSMENT AND PLAN:
[2019-06-19] MEDS: SODIUM CHLORIDE 1,000 ML IV SCH ×2 (16:06→17:10)
[2019-06-19 17:37] LABS: BLOOD UREA NITROGEN 26.8 mg/dL (7-18); CALCIUM 7.3 mg/dL (8.5-10.1); CREATININE 1.2 mg/dL (0.55-1.3); POTASSIUM 5.3 mmol/L (3.5-5.1)
[2019-06-19] MEDS ORDERED: LACTATED RINGERS SOLUTION 1000 ML INFUS.BAG IV ONE (18:01)
[2019-06-19] MEDS: LACTATED RINGERS SOLUTION 1,000 ML/1,000 ML INFUS.BAG IV SCH (18:40)
[2019-06-19] MEDS: CHLORHEXIDINE GLUCONATE 4% CLEANSER FOR DECOLONIZATION TP SCH (22:23)
[2019-06-19] MEDS: HEPARIN NA (PORCINE) 5,000 UNITS/ML 1ML VIAL SQ SCH (22:23)
[2019-06-20] MEDS ORDERED: PIPERACILLIN/TAZOBACTAM 3.375 GM VIAL IVPB ONE ×2 (01:23→09:33)
[2019-06-20] MEDS ORDERED: DEXTROSE 5%-WATER - 50 ML IVPB ONE ×2 (01:23→09:33)
[2019-06-20] MEDS: PIPERACILLIN/TAZOB 3.375 GM 3.375 GM in DEXTROSE 5%-WATER - 50 ML IVPB SCH ×2 (01:48→09:39)
[2019-06-20] MEDS: MORPHINE SULFATE 2 MG/ML VIAL IVPUSH SCH ×4 (03:16→22:00)
[2019-06-20] MEDS: ARTIFICIAL TEARS (POLYVINYL ALCOHOL) OPTH DROPS OU SCH ×6 (03:20→23:30)
[2019-06-20] MEDS: VANCOMYCIN 1 GRAM (PRE-DOCKED) 1,000 MG/250 ML BAG IVPB SCH ×2 (03:57→18:51)
[2019-06-20 04:23] LABS: BASO % 0.4 % (0-2.0); EOS % 2.1 % (0-4.5); HEMATOCRIT 22.5 % (32.4-45.2); HEMOGLOBIN 7.2 GM/dL (10.7-15.3); MCH 30.2 pg (25.7-33.7); MCHC 31.8 g/dl (32.0-36.0); MEAN CELL VOLUME 94.9 fl (80-96); MEAN PLT VOLUME 9.5 fl (7.5-11.1); MONO % 6.8 % (3.8-10.2); NEUT % 83.7 % (42.8-82.8); PLATELET COUNT 279 K/MM3 (134-434); RBC 2.37 M/mm3 (3.60-5.2); WHITE BLOOD COUNT 17.4 K/mm3 (4.0-10.0)
[2019-06-20 04:54] LABS: BLOOD UREA NITROGEN 29.3 mg/dL (7-18); CALCIUM 7.6 mg/dL (8.5-10.1); CREATININE 1.2 mg/dL (0.55-1.3); POTASSIUM 4.3 mmol/L (3.5-5.1)
[2019-06-20] MEDS: LACTATED RINGERS SOLUTION 1,000 ML/1,000 ML INFUS.BAG IV SCH ×2 (07:00→12:51)
[2019-06-20] MEDS: ALBUTEROL SO4 2.5/IPRATROPIUM 0.5 INH SOL 3 ML VIAL.NEB. NEB SCH ×4 (08:15→20:15)
[2019-06-20] MEDS: HEPARIN NA (PORCINE) 5,000 UNITS/ML 1ML VIAL SQ SCH ×2 (09:29→21:30)
[2019-06-20] MEDS: MUPIROCIN 2% TOPICAL OINTMENT FOR DECOLONIZATION NS SCH ×2 (09:40→21:30)
--- NOTE | 2019-06-20 10:49 | PN ---
Progress Note, Physician Chief Complaint: UNRESPONSIVE ON VENTILATOR NO ACUTE DISTRESS AFEBRILE WBC REMAINS ELEVATED SPUTUM C/S PSEUDOMONAS SP - Current Medication List Current Medications: Active Medications Acetaminophen (Ofirmev Injection -) 1,000 mg IVPB Q6H PRN PRN Reason: FEVER Last Admin: 06/17/19 22:07 Dose: 1,000 mg Albuterol/Ipratropium (Duoneb -) 1 amp NEB RQID JUAN ALBERTO Last Admin: 06/20/19 08:15 Dose: 1 amp Artificial Tears (Artificial Tears) 1 drop OU Q4H JUAN ALBERTO Last Admin: 06/20/19 08:00 Dose: 1 drop Chlorhexidine Gluconate (Hibiclens For Decolonization -) 1 applic TP HS JUAN ALBERTO Last Admin: 06/19/19 22:23 Dose: 1 applic Heparin Sodium (Porcine) (Heparin -) 5,000 unit SQ BID [facility] Last Admin: 06/20/19 09:29 Dose: 5,000 unit Vancomycin HCl (Vancomycin (Pre-Docked)) 1,000 mg in 250 mls @ 166.667 mls/hr IVPB Q12H JUAN ALBERTO; Protocol Last Admin: 06/20/19 03:57 Dose: 166.667 mls/hr Piperacillin Sod/Tazobactam (Sod 3.375 gm/ Dextrose) 50 mls @ 100 mls/hr IVPB Q8H-IV JUAN ALBERTO; Protocol Last Admin: 06/20/19 09:39 Dose: 100 mls/hr Lactated Ringer's (Lactated Ringers Solution) 1,000 ml in 1,000 mls @ 100 mls/ hr IV ASDIR [facility] Last Admin: 06/20/19 07:00 Dose: 100 mls/hr Ibuprofen (Caldolor Injection -) 400 mg IVPB Q6H PRN PRN Reason: FEVER Morphine Sulfate (Morphine Sulfate) 2 mg IVPUSH Q6H [facility] Last Admin: 06/20/19 09:29 Dose: Not Given Mupirocin (Bactroban Ointment (For Decolonization) -) 1 applic NS BID [facility] Stop: 06/22/19 21:59 Last Admin: 06/20/19 09:40 Dose: 1 applic Scopolamine HBr (Transderm-Scop -) 1 patch TD Q72H [facility] Last Admin: 06/17/19 22:12 Dose: 1 patch - Objective Vital Signs: Vital Signs Temperature 98.7 F 06/20/19 06:00 Pulse Rate 76 06/20/19 09:00 Respiratory Rate 16 06/20/19 09:00 Blood Pressure 106/56 L 06/20/19 09:00 O2 Sat by Pulse Oximetry (%) 100 06/20/19 09:00 Constitutional: Yes: No Distress Cardiovascular: Yes: Regular Rate and Rhythm, S1, S2 Respiratory: Yes: Mechanically Ventilated Gastrointestinal: Yes: Normal Bowel Sounds, Soft. No: Tenderness Labs: CBC, BMP 06/20/19 04:10 06/20/19 04:10 INR, PTT INR 1.23 (0.83-1.09) H 06/18/19 05:45 Fibrinogen 455.0 mg/dL (238-498) 06/18/19 05:45 Assessment/Plan FEVER RESOLVED + BC = contaminant S/P CARDIAC ARREST ANOXIA PROBABLE ASP PNEUMONIA LEUKOCYTOSIS REPEAT BC NO GROWTH SUBSTITUTE CEFEPIME FOR TX OF PNEUMONIA SUPPORIVE MEASURES
[2019-06-20 12:06] LABS: BLOOD UREA NITROGEN 29.8 mg/dL (7-18); CALCIUM 7.7 mg/dL (8.5-10.1); CREATININE 1.2 mg/dL (0.55-1.3); POTASSIUM 4.2 mmol/L (3.5-5.1)
--- NOTE | 2019-06-20 12:09 | PN ---
Teaching Attending Note Name of Resident: Benita Preciado ATTENDING PHYSICIAN STATEMENT I saw and evaluated the patient. I reviewed the resident's note and discussed the case with the resident. I agree with the resident's findings and plan as documented. SUBJECTIVE: Patient seen and examined in the ICU. AC Mode of vent. Low UO that responded to IVF. but no acute events overnight. Processing ongoing for DCD. Intake & Output 06/17/19 06/18/19 06/19/19 06/20/19 23:59 23:59 23:59 23:59 Intake Total 1100 1760 2774 850 Output Total 350 750 530 200 Balance 750 1010 2244 650 Weight 123 lb 5 oz 129 lb 8 oz 133 lb 3.2 oz Last Vital Signs Temp Pulse Resp BP Pulse Ox 98.7 F 76 17 106/56 L 100 06/20/19 06:00 06/20/19 09:00 06/20/19 11:43 06/20/19 09:00 06/20/19 09:00 Active Medications Acetaminophen (Ofirmev Injection -) 1,000 mg IVPB Q6H PRN PRN Reason: FEVER Last Admin: 06/17/19 22:07 Dose: 1,000 mg Albuterol/Ipratropium (Duoneb -) 1 amp NEB RQID JUAN ALBERTO Last Admin: 06/20/19 11:45 Dose: 1 amp Artificial Tears (Artificial Tears) 1 drop OU Q4H JUAN ALBERTO Last Admin: 06/20/19 08:00 Dose: 1 drop Chlorhexidine Gluconate (Hibiclens For Decolonization -) 1 applic TP HS JUAN ALBERTO Last Admin: 06/19/19 22:23 Dose: 1 applic Heparin Sodium (Porcine) (Heparin -) 5,000 unit SQ BID JUAN ALBERTO Last Admin: 06/20/19 09:29 Dose: 5,000 unit Cefepime HCl 1 gm/ Dextrose 100 mls @ 200 mls/hr IVPB BID JUAN ALBERTO; Protocol Lactated Ringer's (Lactated Ringers Solution) 1,000 ml in 1,000 mls @ 75 mls/ hr IV ASDIR JUAN ALBERTO Ibuprofen (Caldolor Injection -) 400 mg IVPB Q6H PRN PRN Reason: FEVER Morphine Sulfate (Morphine Sulfate) 2 mg IVPUSH Q6H JUAN ALBERTO Last Admin: 06/20/19 09:29 Dose: Not Given Mupirocin (Bactroban Ointment (For Decolonization) -) 1 applic NS BID JUAN ALBERTO Stop: 06/22/19 21:59 Last Admin: 06/20/19 09:40 Dose: 1 applic Scopolamine HBr (Transderm-Scop -) 1 patch TD Q72H [facility] Last Admin: 06/17/19 22:12 Dose: 1 patch Exam: Gen: Vented, minimally responsive to noxious stimuli HEENT: pupils constricted Resp: few scatted Ronchi CV: S1S2 Abd:Hypo-active BS, S/S N/T N/D X4Q Ext: + Pulses, WWPX4, +1 peripheral edema Neuro: Minimally responsive to noxious stimuli Laboratory Results - last 24 hr 06/19/19 06/20/19 06/20/19 16:00 04:10 04:10 WBC 17.4 H RBC 2.37 L Hgb 7.2 L Hct 22.5 L MCV 94.9 MCH 30.2 MCHC 31.8 L RDW 18.0 H Plt Count 279 MPV 9.5 Absolute Neuts (auto) 14.5 H Neutrophils % 83.7 H Lymphocytes % 7.0 L Monocytes % 6.8 Eosinophils % 2.1 D Basophils % 0.4 D Nucleated RBC % 0 Sodium 142 141 Potassium 5.3 H 4.3 Chloride 110 H 108 H Carbon Dioxide 24 24 Anion Gap 8 9 BUN 26.8 H 29.3 H Creatinine 1.2 1.2 Est GFR (CKD-EPI)AfAm 58.92 58.92 Est GFR (CKD-EPI)NonAf 50.84 50.84 Random Glucose 124 H 133 H Calcium 7.3 L 7.6 L 06/20/19 11:15 WBC RBC Hgb Hct MCV MCH MCHC RDW Plt Count MPV Absolute Neuts (auto) Neutrophils % Lymphocytes % Monocytes % Eosinophils % Basophils % Nucleated RBC % Sodium 141 Potassium 4.2 Chloride 108 H Carbon Dioxide 24 Anion Gap 8 BUN 29.8 H Creatinine 1.2 Est GFR (CKD-EPI)AfAm 58.92 Est GFR (CKD-EPI)NonAf 50.84 Random Glucose 147 H Calcium 7.7 L Assessment/Plan ASSESS: s/p Cardiopulmonary Arrest Anoxic Brain Injury r/o Sepsis Lactic Acidosis Elevated LFTs likely Ischemic Injury +Troponins likely Demand Ischemia Chronic Respiratory Failure COPD Autism Osteogenesis Imperfecta Anemia PLAN: - cont Vent support - antibiotics - IVF - monitor urine output, creatinine - lasix as needed - replete lytes - DVT/GI prophylaxis - Process for DCD ongoing Dr Aguilar
--- NOTE | 2019-06-20 12:51 | PN ---
Physical Exam: SUBJECTIVE: Patient seen and examined at bedside. Patient is unconscious and unable to follow commands. OBJECTIVE: Vital Signs Period Temp Pulse Resp BP Sys/Oliva Pulse Ox Last 24 Hr 97.8 F-98.9 F 72-87 16-35 86-117/38-62 100-100 GENERAL: The patient is sedated, intubated, minimally responsive to painful stimuli HEAD: NC/AT NECK: Trachea midline, full range of motion, supple. LUNGS: Vented. Breath sounds equal, no accessory muscle use. HEART: Regular rate and rhythm, S1, S2 without murmur, rub or gallop. ABDOMEN: Soft, nontender, nondistended, no guarding, no rebound, no masses. EXTREMITIES: 2+ pulses, warm, well-perfused, 1+ pitting edema bilaterally. NEUROLOGICAL: Unable to assess. SKIN: Warm, dry, normal turgor, no rashes or lesions noted Laboratory Results - last 24 hr 06/19/19 06/20/19 06/20/19 16:00 04:10 04:10 WBC 17.4 H RBC 2.37 L Hgb 7.2 L Hct 22.5 L MCV 94.9 MCH 30.2 MCHC 31.8 L RDW 18.0 H Plt Count 279 MPV 9.5 Absolute Neuts (auto) 14.5 H Neutrophils % 83.7 H Lymphocytes % 7.0 L Monocytes % 6.8 Eosinophils % 2.1 D Basophils % 0.4 D Nucleated RBC % 0 Sodium 142 141 Potassium 5.3 H 4.3 Chloride 110 H 108 H Carbon Dioxide 24 24 Anion Gap 8 9 BUN 26.8 H 29.3 H Creatinine 1.2 1.2 Est GFR (CKD-EPI)AfAm 58.92 58.92 Est GFR (CKD-EPI)NonAf 50.84 50.84 Random Glucose 124 H 133 H Calcium 7.3 L 7.6 L 06/20/19 11:15 WBC RBC Hgb Hct MCV MCH MCHC RDW Plt Count MPV Absolute Neuts (auto) Neutrophils % Lymphocytes % Monocytes % Eosinophils % Basophils % Nucleated RBC % Sodium 141 Potassium 4.2 Chloride 108 H Carbon Dioxide 24 Anion Gap 8 BUN 29.8 H Creatinine 1.2 Est GFR (CKD-EPI)AfAm 58.92 Est GFR (CKD-EPI)NonAf 50.84 Random Glucose 147 H Calcium 7.7 L Active Medications Generic Name Dose Route Start Last Admin Trade Name Freq PRN Reason Stop Dose Admin Acetaminophen 1,000 mg 06/17/19 20:53 06/17/19 22:07 Ofirmev Injection - IVPB 1,000 mg Q6H PRN Administration FEVER Albuterol/Ipratropium 1 amp 06/17/19 20:00 06/20/19 11:45 Duoneb - NEB 1 amp RQID JUAN ALBERTO Administration Artificial Tears 1 drop 06/19/19 11:26 06/20/19 08:00 Artificial Tears OU 1 drop Q4H JUAN ALBERTO Administration Chlorhexidine Gluconate 1 applic 06/17/19 22:00 06/19/19 22:23 Hibiclens For Decolonization - TP 1 applic HS JUAN ALBERTO Administration Heparin Sodium (Porcine) 5,000 unit 06/19/19 22:00 06/20/19 09:29 Heparin - SQ 5,000 unit BID JUAN ALBERTO Administration Cefepime HCl 1 gm/ Dextrose 100 mls @ 200 mls/hr 06/20/19 22:00 IVPB BID JUAN ALBERTO Protocol Lactated Ringer's 1,000 ml in 1,000 mls @ 75 mls/hr 06/20/19 11:09 Lactated Ringers Solution IV ASDIR JUAN ALBERTO Ibuprofen 400 mg 06/17/19 17:00 Caldolor Injection - IVPB Q6H PRN FEVER Morphine Sulfate 2 mg 06/17/19 21:00 06/20/19 09:29 Morphine Sulfate IVPUSH Not Given Q6H JUAN ALBERTO Mupirocin 1 applic 06/17/19 22:00 06/20/19 09:40 Bactroban Ointment (For Decolonization) - NS 06/22/19 21:59 1 applic BID JUAN ALBERTO Administration Scopolamine HBr 1 patch 06/17/19 19:45 06/17/19 22:12 Transderm-Scop - TD 1 patch Q72H JUAN ALBERTO Administration ASSESSMENT/PLAN: 53 y/o/f with PMHx Osteogenesis Imperfecta, COPD, Chronic Respiratory Failure s/ p Trach, Autism Spectrum Disorder, Wedge Compression Fracture of T2 who presented to the ER from [facility] after a cardiac arrest, s/p ROSC. Suffering from anoxic brain injury, awaiting DCD (Donor after Cardiac ) on . #Neuro - Anoxic Brain Injury 2/2 cardiopulmonary arrest #ID - Afebrile, Tylenol PRN for temp > 100 - WBC up to 17.4 from 12.9 previously. - Cefepime 1gm BID as per ID - Blood cx preliminary reports negative for growth - Sputum cx Pseudomonas Aeruginosa - Mupirocin in nares for decolonization - ID on board #Cardio - Hypothermia protocol completed - Cardio on board #Pulm - Continue vent support, keep SpO2 >90% - Continue duonebs - Lasix as needed - PCP submitted terminal extubation papers, pending approval - Pulm on board #GI - AST/ALT down to 81/92 #Renal - BUN/Cr at 29.8/1.2 - Continue to monitor urine output and Cr #FEN - RL @ 100 ml/hr - K+ at 4.2 #PPX - Heparin 5000 Q12H #Dispo - DCD pending, scheduled for 06/22 Recommendations per Keshia: -CBC with diff Q6hr -CMP w/Mg, Phos, Calcium, Amylase, LFTs, lipase, Direct bili Q6hr -Coags Q6hrs -ABG daily -UA daily -Keep patient on Vanc and Zosyn -Electrolyte replacement as needed -CXR daily Visit type - Emergency Visit Emergency Visit: Yes ED Registration Date: 06/12/19 Care time: The patient presented to the Emergency Department on the above date and was hospitalized for further evaluation of their emergent condition. - New Patient This patient is new to me today: Yes Date on this admission: 06/21/19 - Critical Care Critical Care patient: Yes Total Critical Care Time (in minutes): 36 Critical Care Statement: The care of this patient involved high complexity decision making to prevent further life threatening deterioration of the patient 's condition and/or to evaluate & treat vital organ system(s) failure or risk of failure. ATTENDING PHYSICIAN STATEMENT I saw and evaluated the patient. I reviewed the resident's note and discussed the case with the resident. I agree with the resident's findings and plan as documented. SUBJECTIVE: OBJECTIVE: ASSESSMENT AND PLAN:
--- NOTE | 2019-06-20 15:24 | PN ---
Progress Note, Physician Chief Complaint: Cardiac Arrest History of Present Illness: Previous notes and events reviewed Unrepsonsive mechanically ventilated spoke with palliative RN patient to be compassionately weaned on 06/22/19 at 11am Hg 7.2 - Current Medication List Current Medications: Active Medications Acetaminophen (Ofirmev Injection -) 1,000 mg IVPB Q6H PRN PRN Reason: FEVER Last Admin: 06/17/19 22:07 Dose: 1,000 mg Albuterol/Ipratropium (Duoneb -) 1 amp NEB RQID [facility] Last Admin: 06/20/19 11:45 Dose: 1 amp Artificial Tears (Artificial Tears) 1 drop OU Q4H JUAN ALBERTO Last Admin: 06/20/19 12:00 Dose: 1 drop Chlorhexidine Gluconate (Hibiclens For Decolonization -) 1 applic TP HS [facility] Last Admin: 06/19/19 22:23 Dose: 1 applic Heparin Sodium (Porcine) (Heparin -) 5,000 unit SQ BID [facility] Last Admin: 06/20/19 09:29 Dose: 5,000 unit Cefepime HCl 1 gm/ Dextrose 100 mls @ 200 mls/hr IVPB BID [facility]; Protocol Lactated Ringer's (Lactated Ringers Solution) 1,000 ml in 1,000 mls @ 75 mls/ hr IV ASDIR [facility] Last Admin: 06/20/19 12:51 Dose: 75 mls/hr Ibuprofen (Caldolor Injection -) 400 mg IVPB Q6H PRN PRN Reason: FEVER Morphine Sulfate (Morphine Sulfate) 2 mg IVPUSH Q6H [facility] Last Admin: 06/20/19 09:29 Dose: Not Given Mupirocin (Bactroban Ointment (For Decolonization) -) 1 applic NS BID [facility] Stop: 06/22/19 21:59 Last Admin: 06/20/19 09:40 Dose: 1 applic Scopolamine HBr (Transderm-Scop -) 1 patch TD Q72H [facility] Last Admin: 06/17/19 22:12 Dose: 1 patch - Objective Vital Signs: Vital Signs Temperature 98.8 F 06/20/19 10:00 Pulse Rate 80 06/20/19 14:00 Respiratory Rate 16 06/20/19 14:00 Blood Pressure 112/55 L 06/20/19 14:00 O2 Sat by Pulse Oximetry (%) 100 06/20/19 14:09 Constitutional: Yes: No Distress HENT: Yes: Atraumatic Neck: Yes: Other (trach) Cardiovascular: Yes: Regular Rate and Rhythm Respiratory: Yes: Regular, Mechanically Ventilated, Rhonchi Gastrointestinal: Yes: Normal Bowel Sounds, Soft Genitourinary: Yes: Garza Present Musculoskeletal: Yes: Muscle Weakness Extremities: Yes: WNL Edema: Yes Edema: LLE: 1+, RLE: 1+ Neurological: Yes: Unresponsive Labs: CBC, BMP 06/20/19 04:10 06/20/19 11:15 INR, PTT INR 1.23 (0.83-1.09) H 06/18/19 05:45 Fibrinogen 455.0 mg/dL (238-498) 06/18/19 05:45 Microbiology 06/15/19 10:50 Blood - Peripheral Venous Blood Culture - Final NO GROWTH AFTER 5 DAYS INCUBATION 06/15/19 10:20 Blood - Peripheral Venous Blood Culture - Final NO GROWTH AFTER 5 DAYS INCUBATION 06/17/19 23:30 Sputum - Endotrachea Suction/Ventilator Gram Stain - Final 06/17/19 23:30 Sputum - Endotrachea Suction/Ventilator Sputum Culture - Final Pseudomonas Aeruginosa 06/17/19 21:25 Blood - Peripheral Venous Blood Culture - Preliminary NO GROWTH OBTAINED AFTER 48 HOURS, INCUBATION TO CONTINUE FOR 3 DAYS. 06/17/19 21:25 Blood - Peripheral Venous Blood Culture - Preliminary NO GROWTH OBTAINED AFTER 48 HOURS, INCUBATION TO CONTINUE FOR 3 DAYS. 06/17/19 23:30 Urine - Urine Garza Urine Culture - Final NO GROWTH OBTAINED 06/12/19 23:30 Blood - Peripheral Venous Blood Culture - Final NO GROWTH AFTER 5 DAYS INCUBATION 06/12/19 23:30 Blood - Peripheral Venous Blood Culture - Final Micrococcus & Related Species 06/14/19 11:30 Sputum - Endotrachea Suction/Ventilator Gram Stain - Final 06/14/19 11:30 Sputum - Endotrachea Suction/Ventilator Sputum Culture - Final Pseudomonas Aeruginosa 06/13/19 00:50 Urine - Urine Clean Catch Urine Culture - Final NO GROWTH OBTAINED Problem List - Problems (1) COPD (chronic obstructive pulmonary disease) Assessment/Plan: -Pulm on board -mechanically ventilated -keep SpO2 >90% -Bronchodilators Code(s): J44.9 - CHRONIC OBSTRUCTIVE PULMONARY DISEASE, UNSPECIFIED (2) Cardiac arrest Assessment/Plan: -completed hypothermia protocol -Cardiology on board -troponin 0.04~0.53~0.29~0.26 Code(s): I46.9 - CARDIAC ARREST, CAUSE UNSPECIFIED (3) Chronic respiratory failure with hypoxia and hypercapnia Assessment/Plan: -Pulm on board -mechanically ventilated -keep SpO2 >90% -Bronchodilators Code(s): J96.11 - CHRONIC RESPIRATORY FAILURE WITH HYPOXIA; J96.12 - CHRONIC RESPIRATORY FAILURE WITH HYPERCAPNIA (4) Sepsis Assessment/Plan: -ID on board -leukocytosis WBC 17.4 -afebrile -tylenol PRN for temp >100F -BC and UC neg -Sputum Cx positive -Cefepime Code(s): A41.9 - SEPSIS, UNSPECIFIED ORGANISM (5) Transaminitis Assessment/Plan: -GI on board -AST 81, ALT 92, Alk Phos 766 -Abd US shows mild CBD dilatation 0.8cm Code(s): R74.0 - NONSPEC ELEV OF LEVELS OF TRANSAMNS & LACTIC ACID DEHYDRGNSE (6) Anemia Assessment/Plan: -Hg 7.2 -patient to receive 1U PRBC transfusion Code(s): D64.9 - ANEMIA, UNSPECIFIED (7) Anoxic brain damage Code(s): G93.1 - ANOXIC BRAIN DAMAGE, NOT ELSEWHERE CLASSIFIED
[2019-06-20 17:40] LABS: BLOOD UREA NITROGEN 30.9 mg/dL (7-18); CALCIUM 7.7 mg/dL (8.5-10.1); CREATININE 1.3 mg/dL (0.55-1.3); POTASSIUM 4.3 mmol/L (3.5-5.1)
[2019-06-20] MEDS ORDERED: PIPERACILLIN/TAZOB 3.375 GM 3.375 GM in DEXTROSE 5%-WATER - 50 ML IVPB SCH (18:00)
[2019-06-20] MEDS ORDERED: VANCOMYCIN 1,000 MG in DEXTROSE 5%-WATER - 250 ML IVPB SCH (18:00)
[2019-06-20] MEDS: SCOPOLAMINE HYDROBROMIDE 1 PATCH PATCH.TD72 TD SCH (18:51)
[2019-06-20] MEDS: CHLORHEXIDINE GLUCONATE 4% CLEANSER FOR DECOLONIZATION TP SCH (21:31)
[2019-06-20] MEDS ORDERED: CEFEPIME 1 GM in DEXTROSE 5%-WATER 100 ML IVPB SCH (22:00)
[2019-06-20 23:44] LABS: BASO % 0.3 % (0-2.0); EOS % 2.5 % (0-4.5); HEMATOCRIT 25.9 % (32.4-45.2); HEMOGLOBIN 8.4 GM/dL (10.7-15.3); LYMPH % 6.9 % (8-40); MCH 31.2 pg (25.7-33.7); MCHC 32.5 g/dl (32.0-36.0); MEAN CELL VOLUME 95.9 fl (80-96); MEAN PLT VOLUME 9.6 fl (7.5-11.1); MONO % 5.2 % (3.8-10.2); NEUT % 85.1 % (42.8-82.8); PLATELET COUNT 287 K/MM3 (134-434); RDW 17.1 % (11.6-15.6); WHITE BLOOD COUNT 17.4 K/mm3 (4.0-10.0)
[2019-06-20 23:53] LABS: EPI CELLS 1.1 /HPF (0-5/HPF); HYALINE CASTS 1 /lpf (0-8); URINE APPEARANCE CLOUDY; URINE BACTERIA 1.7 /hpf (NEGATIVE); URINE BILIRUBIN NEGATIVE (NEGATIVE); URINE COLOR YELLOW; URINE GLUCOSE (UA) NEGATIVE (NEGATIVE); URINE KETONE NEGATIVE (NEGATIVE); URINE LEUK ESTERASE TRACE (NEGATIVE); URINE NITRITE NEGATIVE (NEGATIVE); URINE PROTEIN 1+ (NEGATIVE); URINE RBC 5 /hpf (0-4); URINE UROBILINOGEN 0.2 mg/dL (0.2-1.0); URINE WBC 4 /hpf (0-5)
[2019-06-20 23:56] LABS: INR 1.17 (0.83-1.09); PROTHROMBIN TIME (PATIENT) 13.8 SEC (9.7-13.0)
[2019-06-20 23:59] LABS: ACTIVATED PTT 33.1 SECONDS (25.2-36.5)
[2019-06-21 00:33] LABS: ALBUMIN 1.6 g/dl (3.4-5.0); BILIRUBIN,TOTAL 0.8 mg/dL (0.2-1); BLOOD UREA NITROGEN 31.3 mg/dL (7-18); CREATININE 1.3 mg/dL (0.55-1.3); MAGNESIUM 1.7 mg/dL (1.8-2.4); PHOSPHOROUS 3.5 mg/dL (2.5-4.9); POTASSIUM 4.3 mmol/L (3.5-5.1); TOT PROT 5.3 g/dl (6.4-8.2)
[2019-06-21] MEDS ORDERED: PIPERACILLIN/TAZOBACTAM 3.375 GM VIAL IVPB ONE ×3 (01:08→15:27)
[2019-06-21] MEDS ORDERED: DEXTROSE 5%-WATER - 50 ML IVPB ONE ×3 (01:09→15:27)
[2019-06-21] MEDS ORDERED: PIPERACILLIN/TAZOB 3.375 GM 3.375 GM in DEXTROSE 5%-WATER - 50 ML IVPB SCH (02:00)
[2019-06-21] MEDS ORDERED: SODIUM CHLORIDE 250 ML IV STA (02:16)
[2019-06-21] MEDS: MORPHINE SULFATE 2 MG/ML VIAL IVPUSH SCH ×4 (03:00→21:10)
[2019-06-21] MEDS: ARTIFICIAL TEARS (POLYVINYL ALCOHOL) OPTH DROPS OU SCH ×5 (05:15→19:30)
[2019-06-21] MEDS: VANCOMYCIN 1 GRAM (PRE-DOCKED) 1,000 MG/250 ML BAG IVPB SCH ×2 (05:15→17:28)
[2019-06-21 06:21] LABS: BASO % 1.2 % (0-2.0); EOS % 2.4 % (0-4.5); HEMATOCRIT 25.4 % (32.4-45.2); HEMOGLOBIN 8.4 GM/dL (10.7-15.3); LYMPH % 5.5 % (8-40); MCH 31.6 pg (25.7-33.7); MEAN CELL VOLUME 95.6 fl (80-96); MEAN PLT VOLUME 9.7 fl (7.5-11.1); MONO % 5.1 % (3.8-10.2); NEUT % 85.8 % (42.8-82.8); PLATELET COUNT 288 K/MM3 (134-434); RBC 2.66 M/mm3 (3.60-5.2); RDW 17.2 % (11.6-15.6); WHITE BLOOD COUNT 19.2 K/mm3 (4.0-10.0)
[2019-06-21 06:47] LABS: ALBUMIN 1.6 g/dl (3.4-5.0); BILIRUBIN,TOTAL 0.7 mg/dL (0.2-1); BLOOD UREA NITROGEN 34.5 mg/dL (7-18); CREATININE 1.3 mg/dL (0.55-1.3); MAGNESIUM 1.8 mg/dL (1.8-2.4); PHOSPHOROUS 3.6 mg/dL (2.5-4.9); POTASSIUM 4.6 mmol/L (3.5-5.1); TOT PROT 5.3 g/dl (6.4-8.2)
[2019-06-21 07:27] LABS: ARTERIAL BLD GAS O2 SATURATION 99.5 % (95-98); ARTERIAL BLOOD GAS BASE EXCESS 0 meq/l (-2-2); ARTERIAL BLOOD GAS PCO2 30.9 mmHg (35-45); ARTERIAL BLOOD GAS PO2 164 mmHg (80-100); ARTERIAL BLOOD GAS pH 7.48 (7.35-7.45)
[2019-06-21 07:31] LABS: ALLENS TEST POSITIVE
[2019-06-21 08:00] LABS: INR 1.15 (0.83-1.09); PROTHROMBIN TIME (PATIENT) 13.6 SEC (9.7-13.0)
[2019-06-21] MEDS: ALBUTEROL SO4 2.5/IPRATROPIUM 0.5 INH SOL 3 ML VIAL.NEB. NEB SCH ×4 (08:10→20:10)
[2019-06-21] MEDS: PIPERACILLIN/TAZOB 3.375 GM 3.375 GM in DEXTROSE 5%-WATER - 50 ML IVPB SCH ×2 (09:02→17:29)
[2019-06-21] MEDS: HEPARIN NA (PORCINE) 5,000 UNITS/ML 1ML VIAL SQ SCH ×2 (09:03→21:10)
[2019-06-21] MEDS: MUPIROCIN 2% TOPICAL OINTMENT FOR DECOLONIZATION NS SCH ×2 (09:04→21:12)
--- NOTE | 2019-06-21 11:11 | PN ---
Progress Note, Physician Chief Complaint: UNRESPONSIVE ON VENTILATOR NO ACUTE DISTRESS AFEBRILE WBC REMAINS ELEVATED SPUTUM C/S PSEUDOMONAS SP - Current Medication List Current Medications: Active Medications Acetaminophen (Ofirmev Injection -) 1,000 mg IVPB Q6H PRN PRN Reason: FEVER Last Admin: 06/17/19 22:07 Dose: 1,000 mg Albuterol/Ipratropium (Duoneb -) 1 amp NEB RQID [facility] Last Admin: 06/21/19 08:10 Dose: 1 amp Artificial Tears (Artificial Tears) 1 drop OU Q4H [facility] Last Admin: 06/21/19 08:00 Dose: 1 drop Chlorhexidine Gluconate (Hibiclens For Decolonization -) 1 applic TP HS [facility] Last Admin: 06/20/19 21:31 Dose: 1 applic Heparin Sodium (Porcine) (Heparin -) 5,000 unit SQ BID [facility] Last Admin: 06/21/19 09:03 Dose: 5,000 unit Lactated Ringer's (Lactated Ringers Solution) 1,000 ml in 1,000 mls @ 75 mls/ hr IV ASDIR [facility] Last Admin: 06/20/19 12:51 Dose: 75 mls/hr Vancomycin HCl (Vancomycin (Pre-Docked)) 1,000 mg in 250 mls @ 166.667 mls/hr IVPB Q12H [facility]; Protocol Piperacillin Sod/Tazobactam (Sod 3.375 gm/ Dextrose) 50 mls @ 100 mls/hr IVPB Q8H-IV [facility]; Protocol Last Admin: 06/21/19 09:02 Dose: 100 mls/hr Ibuprofen (Caldolor Injection -) 400 mg IVPB Q6H PRN PRN Reason: FEVER Morphine Sulfate (Morphine Sulfate) 2 mg IVPUSH Q6H [facility] Last Admin: 06/21/19 09:04 Dose: 2 mg Mupirocin (Bactroban Ointment (For Decolonization) -) 1 applic NS BID [facility] Stop: 06/22/19 21:59 Last Admin: 06/21/19 09:04 Dose: 1 applic Scopolamine HBr (Transderm-Scop -) 1 patch TD Q72H [facility] Last Admin: 06/20/19 18:51 Dose: 1 patch - Objective Vital Signs: Vital Signs Temperature 98.6 F 06/21/19 09:26 Pulse Rate 74 06/21/19 09:26 Respiratory Rate 20 06/21/19 10:00 Blood Pressure 108/59 L 06/21/19 09:26 O2 Sat by Pulse Oximetry (%) 100 06/20/19 20:00 Constitutional: Yes: No Distress Eyes: Yes: Conjunctiva Clear, Other (blue sclera) Cardiovascular: Yes: Regular Rate and Rhythm, Rub Respiratory: Yes: Mechanically Ventilated Gastrointestinal: Yes: Normal Bowel Sounds, Soft. No: Tenderness Labs: CBC, BMP 06/21/19 05:30 06/21/19 05:30 INR, PTT INR 1.15 (0.83-1.09) H 06/21/19 05:30 Fibrinogen 455.0 mg/dL (238-498) 06/18/19 05:45 Assessment/Plan FEVER RESOLVED + BC = contaminant S/P CARDIAC ARREST ANOXIA PROBABLE ASP PNEUMONIA LEUKOCYTOSIS REPEAT BC NO GROWTH CONTINUE VANCOMYCIN/ ZOSYN PER TRANSPLANT TEAM
--- NOTE | 2019-06-21 11:25 | PN ---
Progress Note, Physician - Current Medication List Current Medications: Active Medications Acetaminophen (Ofirmev Injection -) 1,000 mg IVPB Q6H PRN PRN Reason: FEVER Last Admin: 06/17/19 22:07 Dose: 1,000 mg Albuterol/Ipratropium (Duoneb -) 1 amp NEB RQID [facility] Last Admin: 06/21/19 08:10 Dose: 1 amp Artificial Tears (Artificial Tears) 1 drop OU Q4H [facility] Last Admin: 06/21/19 08:00 Dose: 1 drop Chlorhexidine Gluconate (Hibiclens For Decolonization -) 1 applic TP HS [facility] Last Admin: 06/20/19 21:31 Dose: 1 applic Heparin Sodium (Porcine) (Heparin -) 5,000 unit SQ BID [facility] Last Admin: 06/21/19 09:03 Dose: 5,000 unit Lactated Ringer's (Lactated Ringers Solution) 1,000 ml in 1,000 mls @ 75 mls/ hr IV ASDIR [facility] Last Admin: 06/20/19 12:51 Dose: 75 mls/hr Vancomycin HCl (Vancomycin (Pre-Docked)) 1,000 mg in 250 mls @ 166.667 mls/hr IVPB Q12H [facility]; Protocol Piperacillin Sod/Tazobactam (Sod 3.375 gm/ Dextrose) 50 mls @ 100 mls/hr IVPB Q8H-IV [facility]; Protocol Last Admin: 06/21/19 09:02 Dose: 100 mls/hr Ibuprofen (Caldolor Injection -) 400 mg IVPB Q6H PRN PRN Reason: FEVER Morphine Sulfate (Morphine Sulfate) 2 mg IVPUSH Q6H [facility] Last Admin: 06/21/19 09:04 Dose: 2 mg Mupirocin (Bactroban Ointment (For Decolonization) -) 1 applic NS BID [facility] Stop: 06/22/19 21:59 Last Admin: 06/21/19 09:04 Dose: 1 applic Scopolamine HBr (Transderm-Scop -) 1 patch TD Q72H [facility] Last Admin: 06/20/19 18:51 Dose: 1 patch - Objective Vital Signs: Vital Signs Temperature 98.6 F 06/21/19 09:26 Pulse Rate 74 06/21/19 09:26 Respiratory Rate 20 06/21/19 10:00 Blood Pressure 108/59 L 06/21/19 09:26 O2 Sat by Pulse Oximetry (%) 100 06/20/19 20:00 Labs: CBC, BMP 06/21/19 05:30 06/21/19 05:30 INR, PTT INR 1.15 (0.83-1.09) H 06/21/19 05:30 Fibrinogen 455.0 mg/dL (238-498) 06/18/19 05:45 Problem List - Problems (1) COPD (chronic obstructive pulmonary disease) Code(s): J44.9 - CHRONIC OBSTRUCTIVE PULMONARY DISEASE, UNSPECIFIED (2) Cardiac arrest Code(s): I46.9 - CARDIAC ARREST, CAUSE UNSPECIFIED (3) Chronic respiratory failure with hypoxia and hypercapnia Code(s): J96.11 - CHRONIC RESPIRATORY FAILURE WITH HYPOXIA; J96.12 - CHRONIC RESPIRATORY FAILURE WITH HYPERCAPNIA (4) Sepsis Code(s): A41.9 - SEPSIS, UNSPECIFIED ORGANISM (5) Transaminitis Code(s): R74.0 - NONSPEC ELEV OF LEVELS OF TRANSAMNS & LACTIC ACID DEHYDRGNSE (6) Anemia Code(s): D64.9 - ANEMIA, UNSPECIFIED (7) Anoxic brain damage Code(s): G93.1 - ANOXIC BRAIN DAMAGE, NOT ELSEWHERE CLASSIFIED
[2019-06-21 11:28] LABS: ANISOCYTOSIS 1+; MACROCYTOSIS 1+; PLATELET ESTIMATE NORMAL
[2019-06-21] MEDS: LACTATED RINGERS SOLUTION 1,000 ML/1,000 ML INFUS.BAG IV SCH (11:33)
--- NOTE | 2019-06-21 11:51 | PN ---
Teaching Attending Note Name of Resident: Kody Ross ATTENDING PHYSICIAN STATEMENT I saw and evaluated the patient. I reviewed the resident's note and discussed the case with the resident. I agree with the resident's findings and plan as documented. SUBJECTIVE: Pt seen and examined in the ICU. No events overnight. Afebrile, unresponsive. OBJECTIVE: Vital Signs Period Temp Pulse Resp BP Sys/Oliva Pulse Ox Last 24 Hr 98.2 F-99.1 F 69-99 14-20 87-113/43-66 100-100 Intake & Output 06/18/19 06/19/19 06/20/19 06/21/19 23:59 23:59 23:59 23:59 Intake Total 1760 2774 2531 1956 Output Total 750 530 500 400 Balance 1010 2244 2031 1556 Weight 55.934 kg 58.74 kg 60.419 kg 60.419 kg Gen: vented, unresponsive Heart: RRR Lung: decreased breath sounds at the bases Abd: soft, nontender Ext: + edema CBC, BMP 06/21/19 05:30 06/21/19 05:30 Active Medications Acetaminophen (Ofirmev Injection -) 1,000 mg IVPB Q6H PRN PRN Reason: FEVER Last Admin: 06/17/19 22:07 Dose: 1,000 mg Albuterol/Ipratropium (Duoneb -) 1 amp NEB RQID [facility] Last Admin: 06/21/19 11:30 Dose: 1 amp Artificial Tears (Artificial Tears) 1 drop OU Q4H [facility] Last Admin: 06/21/19 11:34 Dose: 1 drop Chlorhexidine Gluconate (Hibiclens For Decolonization -) 1 applic TP HS [facility] Last Admin: 06/20/19 21:31 Dose: 1 applic Heparin Sodium (Porcine) (Heparin -) 5,000 unit SQ BID [facility] Last Admin: 06/21/19 09:03 Dose: 5,000 unit Lactated Ringer's (Lactated Ringers Solution) 1,000 ml in 1,000 mls @ 75 mls/ hr IV ASDIR [facility] Last Admin: 06/21/19 11:33 Dose: 75 mls/hr Vancomycin HCl (Vancomycin (Pre-Docked)) 1,000 mg in 250 mls @ 166.667 mls/hr IVPB Q12H [facility]; Protocol Piperacillin Sod/Tazobactam (Sod 3.375 gm/ Dextrose) 50 mls @ 100 mls/hr IVPB Q8H-IV [facility]; Protocol Last Admin: 06/21/19 09:02 Dose: 100 mls/hr Ibuprofen (Caldolor Injection -) 400 mg IVPB Q6H PRN PRN Reason: FEVER Morphine Sulfate (Morphine Sulfate) 2 mg IVPUSH Q6H [facility] Last Admin: 06/21/19 09:04 Dose: 2 mg Mupirocin (Bactroban Ointment (For Decolonization) -) 1 applic NS BID [facility] Stop: 06/22/19 21:59 Last Admin: 06/21/19 09:04 Dose: 1 applic Scopolamine HBr (Transderm-Scop -) 1 patch TD Q72H [facility] Last Admin: 06/20/19 18:51 Dose: 1 patch ASSESSMENT AND PLAN: s/p Cardiopulmonary Arrest Anoxic Brain Injury r/o Sepsis Lactic Acidosis Elevated LFTs likely Ischemic Injury +Troponins likely Demand Ischemia Chronic Respiratory Failure COPD Autism Osteogenesis Imperfecta Anemia - continue empiric antibiotics - f/u cultures - monitor urine output, creatinine - DVT/GI prophylaxis
--- NOTE | 2019-06-21 12:00 | PN ---
Progress Note, Physician Chief Complaint: Cardiac Arrest History of Present Illness: Previous notes and events reviewed Unrepsonsive mechanically ventilated spoke with palliative RN patient to be compassionately weaned on 06/22/19 at 11am Hg 8.4 - Current Medication List Current Medications: Active Medications Acetaminophen (Ofirmev Injection -) 1,000 mg IVPB Q6H PRN PRN Reason: FEVER Last Admin: 06/17/19 22:07 Dose: 1,000 mg Albuterol/Ipratropium (Duoneb -) 1 amp NEB RQID [facility] Last Admin: 06/21/19 11:30 Dose: 1 amp Artificial Tears (Artificial Tears) 1 drop OU Q4H [facility] Last Admin: 06/21/19 11:34 Dose: 1 drop Chlorhexidine Gluconate (Hibiclens For Decolonization -) 1 applic TP HS [facility] Last Admin: 06/20/19 21:31 Dose: 1 applic Heparin Sodium (Porcine) (Heparin -) 5,000 unit SQ BID [facility] Last Admin: 06/21/19 09:03 Dose: 5,000 unit Lactated Ringer's (Lactated Ringers Solution) 1,000 ml in 1,000 mls @ 75 mls/ hr IV ASDIR [facility] Last Admin: 06/21/19 11:33 Dose: 75 mls/hr Vancomycin HCl (Vancomycin (Pre-Docked)) 1,000 mg in 250 mls @ 166.667 mls/hr IVPB Q12H [facility]; Protocol Piperacillin Sod/Tazobactam (Sod 3.375 gm/ Dextrose) 50 mls @ 100 mls/hr IVPB Q8H-IV [facility]; Protocol Last Admin: 06/21/19 09:02 Dose: 100 mls/hr Ibuprofen (Caldolor Injection -) 400 mg IVPB Q6H PRN PRN Reason: FEVER Morphine Sulfate (Morphine Sulfate) 2 mg IVPUSH Q6H [facility] Last Admin: 06/21/19 09:04 Dose: 2 mg Mupirocin (Bactroban Ointment (For Decolonization) -) 1 applic NS BID [facility] Stop: 06/22/19 21:59 Last Admin: 06/21/19 09:04 Dose: 1 applic Scopolamine HBr (Transderm-Scop -) 1 patch TD Q72H [facility] Last Admin: 06/20/19 18:51 Dose: 1 patch - Objective Vital Signs: Vital Signs Temperature 98.6 F 06/21/19 10:00 Pulse Rate 74 06/21/19 10:00 Respiratory Rate 16 06/21/19 10:00 Blood Pressure 108/59 L 06/21/19 10:00 O2 Sat by Pulse Oximetry (%) 100 06/20/19 20:00 Constitutional: Yes: No Distress, Calm HENT: Yes: Atraumatic Neck: Yes: Other (trach) Cardiovascular: Yes: Regular Rate and Rhythm Respiratory: Yes: Regular, Diminished, Mechanically Ventilated Gastrointestinal: Yes: Normal Bowel Sounds, Soft, Other (G tube) Genitourinary: Yes: Garza Present Musculoskeletal: Yes: Muscle Weakness Extremities: Yes: WNL Edema: Yes (upper extremities) Neurological: Yes: Unresponsive Labs: CBC, BMP 06/21/19 05:30 06/21/19 05:30 INR, PTT INR 1.15 (0.83-1.09) H 06/21/19 05:30 Fibrinogen 455.0 mg/dL (238-498) 06/18/19 05:45 Microbiology 06/17/19 21:25 Blood - Peripheral Venous Blood Culture - Preliminary NO GROWTH OBTAINED AFTER 72 HOURS, INCUBATION TO CONTINUE FOR 2 DAYS. 06/17/19 21:25 Blood - Peripheral Venous Blood Culture - Preliminary NO GROWTH OBTAINED AFTER 72 HOURS, INCUBATION TO CONTINUE FOR 2 DAYS. 06/15/19 10:50 Blood - Peripheral Venous Blood Culture - Final NO GROWTH AFTER 5 DAYS INCUBATION 06/15/19 10:20 Blood - Peripheral Venous Blood Culture - Final NO GROWTH AFTER 5 DAYS INCUBATION 06/17/19 23:30 Sputum - Endotrachea Suction/Ventilator Gram Stain - Final 06/17/19 23:30 Sputum - Endotrachea Suction/Ventilator Sputum Culture - Final Pseudomonas Aeruginosa 06/17/19 23:30 Urine - Urine Garza Urine Culture - Final NO GROWTH OBTAINED 06/12/19 23:30 Blood - Peripheral Venous Blood Culture - Final NO GROWTH AFTER 5 DAYS INCUBATION 06/12/19 23:30 Blood - Peripheral Venous Blood Culture - Final Micrococcus & Related Species 06/14/19 11:30 Sputum - Endotrachea Suction/Ventilator Gram Stain - Final 06/14/19 11:30 Sputum - Endotrachea Suction/Ventilator Sputum Culture - Final Pseudomonas Aeruginosa 06/13/19 00:50 Urine - Urine Clean Catch Urine Culture - Final NO GROWTH OBTAINED Problem List - Problems (1) COPD (chronic obstructive pulmonary disease) Assessment/Plan: -Pulm on board -mechanically ventilated -keep SpO2 >90% -Bronchodilators Code(s): J44.9 - CHRONIC OBSTRUCTIVE PULMONARY DISEASE, UNSPECIFIED (2) Cardiac arrest Assessment/Plan: -completed hypothermia protocol -Cardiology on board -troponin 0.04~0.53~0.29~0.26 Code(s): I46.9 - CARDIAC ARREST, CAUSE UNSPECIFIED (3) Chronic respiratory failure with hypoxia and hypercapnia Assessment/Plan: -Pulm on board -mechanically ventilated -keep SpO2 >90% -Bronchodilators Code(s): J96.11 - CHRONIC RESPIRATORY FAILURE WITH HYPOXIA; J96.12 - CHRONIC RESPIRATORY FAILURE WITH HYPERCAPNIA (4) Sepsis Assessment/Plan: -ID on board -leukocytosis WBC 19.2 -afebrile -tylenol PRN for temp >100F -BC and UC neg -Sputum Cx positive -Cefepime Code(s): A41.9 - SEPSIS, UNSPECIFIED ORGANISM (5) Transaminitis Assessment/Plan: -GI on board -AST 52, ALT 53, Alk Phos 533 -Abd US shows mild CBD dilatation 0.8cm Code(s): R74.0 - NONSPEC ELEV OF LEVELS OF TRANSAMNS & LACTIC ACID DEHYDRGNSE (6) Anemia Assessment/Plan: -Hg 8.4 Code(s): D64.9 - ANEMIA, UNSPECIFIED (7) Anoxic brain damage Code(s): G93.1 - ANOXIC BRAIN DAMAGE, NOT ELSEWHERE CLASSIFIED Assessment/Plan see problem list dvt ppx
--- NOTE | 2019-06-21 15:02 | PN ---
Physical Exam: SUBJECTIVE: Patient seen and examined at bedside in the ICU. Patient unconscious and unable to follow instructions. OBJECTIVE: Vital Signs Period Temp Pulse Resp BP Sys/Oliva Pulse Ox Last 24 Hr 98.1 F-99.1 F 69-99 14-20 87-113/42-66 100-100 GENERAL: The patient is sedated, intubated, minimally responsive to painful stimuli HEAD: Normal with no signs of trauma. NECK: Trachea midline, full range of motion, supple. LUNGS: Vented. Breath sounds equal, no accessory muscle use. HEART: Regular rate and rhythm, S1, S2 without murmur, rub or gallop. ABDOMEN: Soft, nontender, nondistended, no guarding, no rebound, no masses. EXTREMITIES: 2+ pulses, warm, well-perfused, 1+ pitting edema bilaterally. NEUROLOGICAL: Unable to assess. PSYCH: Unable to assess. SKIN: Warm, dry, normal turgor, no rashes or lesions noted Laboratory Results - last 24 hr 06/17/19 06/20/19 06/20/19 11:36 16:45 17:00 WBC RBC Hgb Hct MCV MCH MCHC RDW Plt Count MPV Absolute Neuts (auto) Neutrophils % Neutrophils % (Manual) Band Neutrophils % Lymphocytes % Lymphocytes % (Manual) Monocytes % Monocytes % (Manual) Eosinophils % Eosinophils % (Manual) Basophils % Basophils % (Manual) Myelocytes % (Man) Promyelocytes % (Man) Blast Cells % (Manual) Nucleated RBC % Metamyelocytes Hypochromia Platelet Estimate Polychromasia Poikilocytosis Anisocytosis Microcytosis Macrocytosis PT with INR INR PTT (Actin FS) Anticoagulation Therapy Puncture Site ABG pH ABG pCO2 at Pt Temp ABG pO2 at Pt Temp ABG HCO3 ABG O2 Sat (Measured) ABG O2 Content ABG Base Excess Jacob Test O2 Delivery Device Oxygen Flow Rate Vent Mode Vent Rate Mechanical Rate Pressure Support Vent Sodium 140 Potassium 4.3 Chloride 108 H Carbon Dioxide 23 Anion Gap 9 BUN 30.9 H Creatinine 1.3 Est GFR (CKD-EPI)AfAm 53.48 Est GFR (CKD-EPI)NonAf 46.15 Random Glucose 130 H Hemoglobin A1c % Calcium 7.7 L Phosphorus Magnesium Total Bilirubin AST ALT Alkaline Phosphatase Total Protein Albumin Total Amylase Lipase Urine Color Urine Appearance Urine pH Ur Specific [place] Urine Protein Urine Glucose (UA) Urine Ketones Urine Blood Urine Nitrite Urine Bilirubin Urine Urobilinogen Ur Leukocyte Esterase Urine WBC (Auto) Urine RBC (Auto) Urine Casts (Auto) U Epithel Cells (Auto) Urine Bacteria (Auto) Blood Type A NEGATIVE A NEGATIVE Antibody Screen Negative Negative Crossmatch See Detail See Detail 06/20/19 06/20/19 06/20/19 23:00 23:00 23:00 WBC 17.4 H RBC 2.70 L Hgb 8.4 L Hct 25.9 L D MCV 95.9 MCH 31.2 MCHC 32.5 RDW 17.1 H Plt Count 287 MPV 9.6 Absolute Neuts (auto) 14.8 H Neutrophils % 85.1 H Neutrophils % (Manual) Band Neutrophils % Lymphocytes % 6.9 L Lymphocytes % (Manual) Monocytes % 5.2 Monocytes % (Manual) Eosinophils % 2.5 Eosinophils % (Manual) Basophils % 0.3 Basophils % (Manual) Myelocytes % (Man) Promyelocytes % (Man) Blast Cells % (Manual) Nucleated RBC % 0 Metamyelocytes Hypochromia Platelet Estimate Polychromasia Poikilocytosis Anisocytosis Microcytosis Macrocytosis PT with INR 13.80 H INR 1.17 H PTT (Actin FS) 33.1 Anticoagulation Therapy Puncture Site ABG pH ABG pCO2 at Pt Temp ABG pO2 at Pt Temp ABG HCO3 ABG O2 Sat (Measured) ABG O2 Content ABG Base Excess Jacob Test O2 Delivery Device Oxygen Flow Rate Vent Mode Vent Rate Mechanical Rate Pressure Support Vent Sodium 141 Potassium 4.3 Chloride 109 H Carbon Dioxide 22 Anion Gap 10 BUN 31.3 H Creatinine 1.3 Est GFR (CKD-EPI)AfAm 53.48 Est GFR (CKD-EPI)NonAf 46.15 Random Glucose 116 H Hemoglobin A1c % Calcium 8.0 L Phosphorus 3.5 Magnesium 1.7 L Total Bilirubin 0.8 AST 51 H ALT 57 Alkaline Phosphatase 576 H Total Protein 5.3 L Albumin 1.6 L Total Amylase 30 Lipase 95 Urine Color Urine Appearance Urine pH Ur Specific [place] Urine Protein Urine Glucose (UA) Urine Ketones Urine Blood Urine Nitrite Urine Bilirubin Urine Urobilinogen Ur Leukocyte Esterase Urine WBC (Auto) Urine RBC (Auto) Urine Casts (Auto) U Epithel Cells (Auto) Urine Bacteria (Auto) Blood Type Antibody Screen Crossmatch 06/20/19 06/20/19 06/21/19 23:00 23:00 05:30 WBC 19.2 H RBC 2.66 L Hgb 8.4 L Hct 25.4 L MCV 95.6 MCH 31.6 MCHC 33.0 RDW 17.2 H Plt Count 288 MPV 9.7 Absolute Neuts (auto) 16.5 H Neutrophils % 85.8 H Neutrophils % (Manual) 86.0 H Band Neutrophils % 0.0 Lymphocytes % 5.5 L D Lymphocytes % (Manual) 4.0 L D Monocytes % 5.1 Monocytes % (Manual) 7 Eosinophils % 2.4 Eosinophils % (Manual) 1.0 D Basophils % 1.2 D Basophils % (Manual) 0.0 Myelocytes % (Man) 1 D Promyelocytes % (Man) 0 Blast Cells % (Manual) 0 Nucleated RBC % 0 Metamyelocytes 1 D Hypochromia 0 Platelet Estimate Normal Polychromasia 0 Poikilocytosis 0 Anisocytosis 1+ Microcytosis 0 Macrocytosis 1+ PT with INR INR PTT (Actin FS) Anticoagulation Therapy Puncture Site ABG pH ABG pCO2 at Pt Temp ABG pO2 at Pt Temp ABG HCO3 ABG O2 Sat (Measured) ABG O2 Content ABG Base Excess Jacob Test O2 Delivery Device Oxygen Flow Rate Vent Mode Vent Rate Mechanical Rate Pressure Support Vent Sodium Potassium Chloride Carbon Dioxide Anion Gap BUN Creatinine Est GFR (CKD-EPI)AfAm Est GFR (CKD-EPI)NonAf Random Glucose Hemoglobin A1c % 4.6 Calcium Phosphorus Magnesium Total Bilirubin AST ALT Alkaline Phosphatase Total Protein Albumin Total Amylase Lipase Urine Color Yellow Urine Appearance Cloudy Urine pH 6.0 Ur Specific [place] 1.008 L Urine Protein 1+ H Urine Glucose (UA) Negative Urine Ketones Negative Urine Blood Negative Urine Nitrite Negative Urine Bilirubin Negative Urine Urobilinogen 0.2 Ur Leukocyte Esterase Trace Urine WBC (Auto) 4 Urine RBC (Auto) 5 Urine Casts (Auto) 1 U Epithel Cells (Auto) 1.1 Urine Bacteria (Auto) 1.7 Blood Type Antibody Screen Crossmatch 06/21/19 06/21/19 06/21/19 05:30 05:30 06:50 WBC RBC Hgb Hct MCV MCH MCHC RDW Plt Count MPV Absolute Neuts (auto) Neutrophils % Neutrophils % (Manual) Band Neutrophils % Lymphocytes % Lymphocytes % (Manual) Monocytes % Monocytes % (Manual) Eosinophils % Eosinophils % (Manual) Basophils % Basophils % (Manual) Myelocytes % (Man) Promyelocytes % (Man) Blast Cells % (Manual) Nucleated RBC % Metamyelocytes Hypochromia Platelet Estimate Polychromasia Poikilocytosis Anisocytosis Microcytosis Macrocytosis PT with INR 13.60 H INR 1.15 H PTT (Actin FS) 26.0 Anticoagulation Therapy No Result Required. Puncture Site Right radial ABG pH 7.48 H ABG pCO2 at Pt Temp 30.9 L ABG pO2 at Pt Temp 164 H ABG HCO3 22.8 ABG O2 Sat (Measured) 99.5 H ABG O2 Content 11.8 ABG Base Excess 0 Jacob Test Positive O2 Delivery Device A/c Oxygen Flow Rate 40% Vent Mode No Result Required. Vent Rate No Result Required. Mechanical Rate No Result Required. Pressure Support Vent 350 Sodium 141 Potassium 4.6 Chloride 109 H Carbon Dioxide 22 Anion Gap 10 BUN 34.5 H Creatinine 1.3 Est GFR (CKD-EPI)AfAm 53.48 Est GFR (CKD-EPI)NonAf 46.15 Random Glucose 118 H Hemoglobin A1c % Calcium 8.0 L Phosphorus 3.6 Magnesium 1.8 Total Bilirubin 0.7 AST 52 H ALT 54 Alkaline Phosphatase 553 H Total Protein 5.3 L Albumin 1.6 L Total Amylase 25 Lipase 92 Urine Color Urine Appearance Urine pH Ur Specific [place] Urine Protein Urine Glucose (UA) Urine Ketones Urine Blood Urine Nitrite Urine Bilirubin Urine Urobilinogen Ur Leukocyte Esterase Urine WBC (Auto) Urine RBC (Auto) Urine Casts (Auto) U Epithel Cells (Auto) Urine Bacteria (Auto) Blood Type Antibody Screen Crossmatch Active Medications Generic Name Dose Route Start Last Admin Trade Name Radhika PRN Reason Stop Dose Admin Acetaminophen 1,000 mg 06/17/19 20:53 06/17/19 22:07 Ofirmev Injection - IVPB 1,000 mg Q6H PRN Administration FEVER Albuterol/Ipratropium 1 amp 06/17/19 20:00 06/21/19 11:30 Duoneb - NEB 1 amp RQID [facility]ERTO Administration Artificial Tears 1 drop 06/19/19 11:26 06/21/19 11:34 Artificial Tears OU 1 drop Q4H [facility]ERTO Administration Chlorhexidine Gluconate 1 applic 06/17/19 22:00 06/20/19 21:31 Hibiclens For Decolonization - TP 1 applic HS [facility] ALBERTO Administration Heparin Sodium (Porcine) 5,000 unit 06/19/19 22:00 06/21/19 09:03 Heparin - SQ 5,000 unit BID [facility] Administration Lactated Ringer's 1,000 ml in 1,000 mls @ 75 mls/hr 06/20/19 11:09 06/21/19 11:33 Lactated Ringers Solution IV 75 mls/hr ASDIR JUAN ALBERTO Administration Vancomycin HCl 1,000 mg in 250 mls @ 166.667 mls/hr 06/21/19 18:00 Vancomycin (Pre-Docked) IVPB Q12H [facility]ERTO Protocol Piperacillin Sod/Tazobactam 50 mls @ 100 mls/hr 06/21/19 10:00 06/21/19 09:02 Sod 3.375 gm/ Dextrose IVPB 100 mls/hr Q8H-IV [facility] ALBERTO Administration Protocol Ibuprofen 400 mg 06/17/19 17:00 Caldolor Injection - IVPB Q6H PRN FEVER Morphine Sulfate 2 mg 06/17/19 21:00 06/21/19 09:04 Morphine Sulfate IVPUSH 2 mg Q6H [facility]ERT[facility] Administration Mupirocin 1 applic 06/17/19 22:00 06/21/19 09:04 Bactroban Ointment (For Decolonization) - NS 06/22/19 21:59 1 applic BID [facility] Administration Scopolamine HBr 1 patch 06/17/19 19:45 06/20/19 18:51 Transderm-Scop - TD 1 patch Q72H [facility] ALBERTO Administration ASSESSMENT/PLAN: 53 year old female with PMH significant for Osteogenesis Imperfecta, COPD, Chronic Respiratory Failure s/p Trach, Autism Spectrum Disorder, Wedge Compression Fracture of T2 who presented to the ER from [facility] after a cardiac arrest, s/p ROSC. Suffering from anoxic brain injury, awaiting DCD ( Donor after Cardiac ) on 06/22. #Neuro - Anoxic Brain Injury 2/2 cardiopulmonary arrest #ID - Afebrile, Tylenol PRN for temp > 100 - WBC 17.4 -> 19.2 - Cont Zosyn 3.375mg and Vanco 1,000mg - Blood and urine cx no growth - Sputum cx Pseudomonas Aeruginosa - Mupirocin in nares for decolonization - ID on board #Cardio - Hypothermia protocol completed - Positive trops likely due to demand ischemia - Cardio on board #Pulm - ABG and CMP placed for 4 AM - Continue vent support, keep SpO2 >90% - Continue duonebs - Lasix as needed - Pulm on board #Heme - H&H 8.4/25.2 #GI - AST/ALT 81/92 -> 52/54 #Renal - BUN/Cr 29.8/1.2 -> 34.5/1.3 - Cr has been slowly increasing the past few days - RL @ 75 - Continue to monitor urine output and Cr #FEN - RL @ 75 - K 4.6 #PPX - Heparin 5000 Q12H #Code Status - DNR/DNI order placed today #Dispo - DCD pending Visit type - Emergency Visit Emergency Visit: Yes ED Registration Date: 06/13/19 Care time: The patient presented to the Emergency Department on the above date and was hospitalized for further evaluation of their emergent condition. - New Patient This patient is new to me today: No - Critical Care Critical Care patient: Yes Total Critical Care Time (in minutes): 39 Critical Care Statement: The care of this patient involved high complexity decision making to prevent further life threatening deterioration of the patient 's condition and/or to evaluate & treat vital organ system(s) failure or risk of failure. ATTENDING PHYSICIAN STATEMENT I saw and evaluated the patient. I reviewed the resident's note and discussed the case with the resident. I agree with the resident's findings and plan as documented. SUBJECTIVE: OBJECTIVE: ASSESSMENT AND PLAN:
[2019-06-21 17:55] LABS: BASO % 0.3 % (0-2.0); EOS % 3.4 % (0-4.5); HEMATOCRIT 26.1 % (32.4-45.2); HEMOGLOBIN 8.4 GM/dL (10.7-15.3); LYMPH % 7.6 % (8-40); MCHC 32.3 g/dl (32.0-36.0); MEAN CELL VOLUME 95.9 fl (80-96); MEAN PLT VOLUME 9.5 fl (7.5-11.1); MONO % 5.7 % (3.8-10.2); PLATELET COUNT 308 K/MM3 (134-434); RBC 2.72 M/mm3 (3.60-5.2); RDW 17.1 % (11.6-15.6); WHITE BLOOD COUNT 18.9 K/mm3 (4.0-10.0)
[2019-06-21 17:57] LABS: INR 1.28 (0.83-1.09); PROTHROMBIN TIME (PATIENT) 15.2 SEC (9.7-13.0)
[2019-06-21 18:34] LABS: ARTERIAL BLD GAS O2 SATURATION 98.6 % (95-98); ARTERIAL BLOOD GAS BASE EXCESS -0.9 meq/l (-2-2); ARTERIAL BLOOD GAS PCO2 45.1 mmHg (35-45); ARTERIAL BLOOD GAS PO2 144 mmHg (80-100); ARTERIAL BLOOD GAS pH 7.35 (7.35-7.45)
[2019-06-21 18:35] LABS: ALLENS TEST POSITIVE
[2019-06-21 18:39] LABS: ALBUMIN 1.5 g/dl (3.4-5.0); BILIRUBIN,DIRECT 0.2 mg/dL (0.0-0.2); BILIRUBIN,TOTAL 0.5 mg/dL (0.2-1); TOT PROT 5.3 g/dl (6.4-8.2)
[2019-06-21 19:02] LABS: ALBUMIN 1.5 g/dl (3.4-5.0); BILIRUBIN,TOTAL 0.7 mg/dL (0.2-1); BLOOD UREA NITROGEN 36.7 mg/dL (7-18); CREATININE 1.4 mg/dL (0.55-1.3); POTASSIUM 4.5 mmol/L (3.5-5.1); TOT PROT 5.2 g/dl (6.4-8.2)
[2019-06-21] MEDS: CHLORHEXIDINE GLUCONATE 4% CLEANSER FOR DECOLONIZATION TP SCH (21:11)
[2019-06-21 21:59] LABS: EPI CELLS 0.7 /HPF (0-5/HPF); HYALINE CASTS 1 /lpf (0-8); PH,URINE 5.5 (5.0-8.0); URINE APPEARANCE CLEAR; URINE BILIRUBIN NEGATIVE (NEGATIVE); URINE COLOR YELLOW; URINE GLUCOSE (UA) NEGATIVE (NEGATIVE); URINE KETONE NEGATIVE (NEGATIVE); URINE LEUK ESTERASE TRACE (NEGATIVE); URINE NITRITE NEGATIVE (NEGATIVE); URINE PROTEIN TRACE (NEGATIVE); URINE RBC 4 /hpf (0-4); URINE UROBILINOGEN 0.2 mg/dL (0.2-1.0); URINE WBC 3 /hpf (0-5)
[2019-06-21 23:18] LABS: BASO % 0.3 % (0-2.0); EOS % 3.7 % (0-4.5); HEMATOCRIT 25.7 % (32.4-45.2); HEMOGLOBIN 8.4 GM/dL (10.7-15.3); LYMPH % 7.3 % (8-40); MCH 31.5 pg (25.7-33.7); MCHC 32.7 g/dl (32.0-36.0); MEAN CELL VOLUME 96.5 fl (80-96); MEAN PLT VOLUME 9.9 fl (7.5-11.1); MONO % 5.8 % (3.8-10.2); NEUT % 82.9 % (42.8-82.8); PLATELET COUNT 299 K/MM3 (134-434); RBC 2.67 M/mm3 (3.60-5.2); RDW 17.2 % (11.6-15.6); WHITE BLOOD COUNT 17.3 K/mm3 (4.0-10.0)
[2019-06-22 00:08] LABS: ALBUMIN 1.4 g/dl (3.4-5.0); BILIRUBIN,DIRECT 0.2 mg/dL (0.0-0.2); BILIRUBIN,TOTAL 0.4 mg/dL (0.2-1); BLOOD UREA NITROGEN 37.2 mg/dL (7-18); CREATININE 1.3 mg/dL (0.55-1.3); POTASSIUM 4.5 mmol/L (3.5-5.1); TOT PROT 5.2 g/dl (6.4-8.2)
[2019-06-22 00:51] LABS: INR 1.3 (0.83-1.09); PROTHROMBIN TIME (PATIENT) 15.4 SEC (9.7-13.0)
[2019-06-22] MEDS ORDERED: PIPERACILLIN/TAZOBACTAM 3.375 GM VIAL IVPB ONE ×2 (02:01→09:28)
[2019-06-22] MEDS ORDERED: DEXTROSE 5%-WATER - 50 ML IVPB ONE ×2 (02:01→09:28)
[2019-06-22] MEDS: PIPERACILLIN/TAZOB 3.375 GM 3.375 GM in DEXTROSE 5%-WATER - 50 ML IVPB SCH ×2 (02:02→09:29)
[2019-06-22] MEDS: LACTATED RINGERS SOLUTION 1,000 ML/1,000 ML INFUS.BAG IV SCH (02:56)
[2019-06-22] MEDS: MORPHINE SULFATE 2 MG/ML VIAL IVPUSH SCH ×2 (02:56→08:47)
[2019-06-22] MEDS: ARTIFICIAL TEARS (POLYVINYL ALCOHOL) OPTH DROPS OU SCH ×3 (04:00→07:06)
[2019-06-22] MEDS: VANCOMYCIN 1 GRAM (PRE-DOCKED) 1,000 MG/250 ML BAG IVPB SCH (06:54)
--- NOTE | 2019-06-22 07:03 | PN ---
Progress Note (short form) - Note Progress Note: 53 year old female with PMH significant for Osteogenesis Imperfecta, COPD, Chronic Respiratory Failure s/p Trach, Autism Spectrum Disorder, Wedge Compression Fracture of T2 who presented to the ER from [facility] after a cardiac arrest, s/p ROSC. Suffering from anoxic brain injury, awaiting DCD ( Donor after Cardiac ) on 06/22. --- Contacted Dr Mcfarland medical doctor, who did not accept the case, consented to DCD. Case #[id number]. Luci tenant coordinator will contact medical doctor with time of after extubation today.
[2019-06-22 07:11] LABS: BASO % 0.2 % (0-2.0); EOS % 3.8 % (0-4.5); HEMATOCRIT 23.8 % (32.4-45.2); HEMOGLOBIN 7.8 GM/dL (10.7-15.3); LYMPH % 7.1 % (8-40); MCH 31.7 pg (25.7-33.7); MCHC 32.9 g/dl (32.0-36.0); MEAN CELL VOLUME 96.4 fl (80-96); MEAN PLT VOLUME 9.5 fl (7.5-11.1); MONO % 5.4 % (3.8-10.2); NEUT % 83.5 % (42.8-82.8); PLATELET COUNT 288 K/MM3 (134-434); RBC 2.47 M/mm3 (3.60-5.2); RDW 17.4 % (11.6-15.6); WHITE BLOOD COUNT 17.6 K/mm3 (4.0-10.0)
--- NOTE | 2019-06-22 07:23 | PN ---
Physical Exam: SUBJECTIVE: Patient seen and examined OBJECTIVE: Vital Signs Period Temp Pulse Resp BP Sys/Oliva Pulse Ox Last 24 Hr 98.1 F-98.9 F 72-90 14-21 94-115/41-77 93-93 GENERAL: The patient is awake, alert, and fully oriented, in no acute distress. HEAD: Normal with no signs of trauma. EYES: PERRL, extraocular movements intact, sclera anicteric, conjunctiva clear. No ptosis. ENT: Ears normal, nares patent, oropharynx clear without exudates, moist mucous membranes. NECK: Trachea midline, full range of motion, supple. LUNGS: Breath sounds equal, clear to auscultation bilaterally, no wheezes, no crackles, no accessory muscle use. HEART: Regular rate and rhythm, S1, S2 without murmur, rub or gallop. ABDOMEN: Soft, nontender, nondistended, normoactive bowel sounds, no guarding, no rebound, no hepatosplenomegaly, no masses. EXTREMITIES: 2+ pulses, warm, well-perfused, no edema. NEUROLOGICAL: Cranial nerves II through XII grossly intact. Normal speech, gait not observed. PSYCH: Normal mood, normal affect. SKIN: Warm, dry, normal turgor, no rashes or lesions noted Laboratory Results - last 24 hr 06/21/19 06/21/19 06/21/19 05:30 05:30 06:50 WBC 19.2 H RBC 2.66 L Hgb 8.4 L Hct 25.4 L MCV 95.6 MCH 31.6 MCHC 33.0 RDW 17.2 H Plt Count 288 MPV 9.7 Absolute Neuts (auto) 16.5 H Neutrophils % 85.8 H Neutrophils % (Manual) 86.0 H Band Neutrophils % 0.0 Lymphocytes % 5.5 L D Lymphocytes % (Manual) 4.0 L D Monocytes % 5.1 Monocytes % (Manual) 7 Eosinophils % 2.4 Eosinophils % (Manual) 1.0 D Basophils % 1.2 D Basophils % (Manual) 0.0 Myelocytes % (Man) 1 D Promyelocytes % (Man) 0 Blast Cells % (Manual) 0 Nucleated RBC % 0 Metamyelocytes 1 D Hypochromia 0 Platelet Estimate Normal Polychromasia 0 Poikilocytosis 0 Anisocytosis 1+ Microcytosis 0 Macrocytosis 1+ PT with INR 13.60 H INR 1.15 H PTT (Actin FS) 26.0 Anticoagulation Therapy No Result Required. Puncture Site Right radial ABG pH 7.48 H ABG pCO2 at Pt Temp 30.9 L ABG pO2 at Pt Temp 164 H ABG HCO3 22.8 ABG O2 Sat (Measured) 99.5 H ABG O2 Content 11.8 ABG Base Excess 0 Jacob Test Positive O2 Delivery Device A/c Oxygen Flow Rate 40% Vent Mode No Result Required. Vent Rate No Result Required. Mechanical Rate No Result Required. PEEP Pressure Support Vent 350 Sodium Potassium Chloride Carbon Dioxide Anion Gap BUN Creatinine Est GFR (CKD-EPI)AfAm Est GFR (CKD-EPI)NonAf Random Glucose Calcium Total Bilirubin Direct Bilirubin AST ALT Alkaline Phosphatase Total Protein Albumin Total Amylase Lipase Urine Color Urine Appearance Urine pH Ur Specific C[place] Urine Protein Urine Glucose (UA) Urine Ketones Urine Blood Urine Nitrite Urine Bilirubin Urine Urobilinogen Ur Leukocyte Esterase Urine WBC (Auto) Urine RBC (Auto) Urine Casts (Auto) U Epithel Cells (Auto) Urine Bacteria (Auto) 06/21/19 06/21/19 06/21/19 17:00 17:00 17:00 WBC 18.9 H RBC 2.72 L Hgb 8.4 L Hct 26.1 L MCV 95.9 MCH 31.0 MCHC 32.3 RDW 17.1 H Plt Count 308 MPV 9.5 Absolute Neuts (auto) 15.6 H Neutrophils % 83.0 H Neutrophils % (Manual) Band Neutrophils % Lymphocytes % 7.6 L D Lymphocytes % (Manual) Monocytes % 5.7 Monocytes % (Manual) Eosinophils % 3.4 Eosinophils % (Manual) Basophils % 0.3 Basophils % (Manual) Myelocytes % (Man) Promyelocytes % (Man) Blast Cells % (Manual) Nucleated RBC % 0 Metamyelocytes Hypochromia Platelet Estimate Polychromasia Poikilocytosis Anisocytosis Microcytosis Macrocytosis PT with INR INR PTT (Actin FS) Anticoagulation Therapy Puncture Site ABG pH ABG pCO2 at Pt Temp ABG pO2 at Pt Temp ABG HCO3 ABG O2 Sat (Measured) ABG O2 Content ABG Base Excess Jacob Test O2 Delivery Device Oxygen Flow Rate Vent Mode Vent Rate Mechanical Rate PEEP Pressure Support Vent Sodium 141 Potassium 4.5 Chloride 108 H Carbon Dioxide 26 Anion Gap 8 BUN 36.7 H Creatinine 1.4 H Est GFR (CKD-EPI)AfAm 48.90 Est GFR (CKD-EPI)NonAf 42.19 Random Glucose 115 H Calcium 8.0 L Total Bilirubin 0.7 Direct Bilirubin AST 47 H ALT 48 Alkaline Phosphatase 514 H Total Protein 5.2 L Albumin 1.5 L Total Amylase 36 Lipase 157 Urine Color Urine Appearance Urine pH Ur Specific [place] Urine Protein Urine Glucose (UA) Urine Ketones Urine Blood Urine Nitrite Urine Bilirubin Urine Urobilinogen Ur Leukocyte Esterase Urine WBC (Auto) Urine RBC (Auto) Urine Casts (Auto) U Epithel Cells (Auto) Urine Bacteria (Auto) 06/21/19 06/21/19 06/21/19 17:00 17:00 17:00 WBC RBC Hgb Hct MCV MCH MCHC RDW Plt Count MPV Absolute Neuts (auto) Neutrophils % Neutrophils % (Manual) Band Neutrophils % Lymphocytes % Lymphocytes % (Manual) Monocytes % Monocytes % (Manual) Eosinophils % Eosinophils % (Manual) Basophils % Basophils % (Manual) Myelocytes % (Man) Promyelocytes % (Man) Blast Cells % (Manual) Nucleated RBC % Metamyelocytes Hypochromia Platelet Estimate Polychromasia Poikilocytosis Anisocytosis Microcytosis Macrocytosis PT with INR 15.20 H INR 1.28 H PTT (Actin FS) Anticoagulation Therapy Puncture Site ABG pH ABG pCO2 at Pt Temp ABG pO2 at Pt Temp ABG HCO3 ABG O2 Sat (Measured) ABG O2 Content ABG Base Excess Jacob Test O2 Delivery Device Oxygen Flow Rate Vent Mode Vent Rate Mechanical Rate PEEP Pressure Support Vent Sodium Potassium Chloride Carbon Dioxide Anion Gap BUN Creatinine Est GFR (CKD-EPI)AfAm Est GFR (CKD-EPI)NonAf Random Glucose Calcium Total Bilirubin 0.5 Direct Bilirubin 0.2 0.2 AST 47 H ALT 50 Alkaline Phosphatase 518 H Total Protein 5.3 L Albumin 1.5 L Total Amylase Lipase Urine Color Urine Appearance Urine pH Ur Specific [place] Urine Protein Urine Glucose (UA) Urine Ketones Urine Blood Urine Nitrite Urine Bilirubin Urine Urobilinogen Ur Leukocyte Esterase Urine WBC (Auto) Urine RBC (Auto) Urine Casts (Auto) U Epithel Cells (Auto) Urine Bacteria (Auto) 06/21/19 06/21/19 06/21/19 18:00 20:50 23:00 WBC 17.3 H RBC 2.67 L Hgb 8.4 L Hct 25.7 L MCV 96.5 H MCH 31.5 MCHC 32.7 RDW 17.2 H Plt Count 299 MPV 9.9 Absolute Neuts (auto) 14.4 H Neutrophils % 82.9 H Neutrophils % (Manual) Band Neutrophils % Lymphocytes % 7.3 L Lymphocytes % (Manual) Monocytes % 5.8 Monocytes % (Manual) Eosinophils % 3.7 Eosinophils % (Manual) Basophils % 0.3 Basophils % (Manual) Myelocytes % (Man) Promyelocytes % (Man) Blast Cells % (Manual) Nucleated RBC % 0 Metamyelocytes Hypochromia Platelet Estimate Polychromasia Poikilocytosis Anisocytosis Microcytosis Macrocytosis PT with INR INR PTT (Actin FS) Anticoagulation Therapy No Result Required. Puncture Site Left radial ABG pH 7.35 ABG pCO2 at Pt Temp 45.1 H ABG pO2 at Pt Temp 144 H ABG HCO3 24.3 ABG O2 Sat (Measured) 98.6 H ABG O2 Content 15.6 ABG Base Excess -0.9 Jacob Test Positive O2 Delivery Device No Result Required. Oxygen Flow Rate 40 Vent Mode No Result Required. Vent Rate 16 Mechanical Rate No Result Required. PEEP 5.0 Pressure Support Vent 350 Sodium Potassium Chloride Carbon Dioxide Anion Gap BUN Creatinine Est GFR (CKD-EPI)AfAm Est GFR (CKD-EPI)NonAf Random Glucose Calcium Total Bilirubin Direct Bilirubin AST ALT Alkaline Phosphatase Total Protein Albumin Total Amylase Lipase Urine Color Yellow Urine Appearance Clear Urine pH 5.5 Ur Specific [place] 1.008 L Urine Protein Trace Urine Glucose (UA) Negative Urine Ketones Negative Urine Blood Negative Urine Nitrite Negative Urine Bilirubin Negative Urine Urobilinogen 0.2 Ur Leukocyte Esterase Trace Urine WBC (Auto) 3 Urine RBC (Auto) 4 Urine Casts (Auto) 1 U Epithel Cells (Auto) 0.7 Urine Bacteria (Auto) 1.0 06/21/19 06/21/19 06/21/19 23:00 23:00 23:00 WBC RBC Hgb Hct MCV MCH MCHC RDW Plt Count MPV Absolute Neuts (auto) Neutrophils % Neutrophils % (Manual) Band Neutrophils % Lymphocytes % Lymphocytes % (Manual) Monocytes % Monocytes % (Manual) Eosinophils % Eosinophils % (Manual) Basophils % Basophils % (Manual) Myelocytes % (Man) Promyelocytes % (Man) Blast Cells % (Manual) Nucleated RBC % Metamyelocytes Hypochromia Platelet Estimate Polychromasia Poikilocytosis Anisocytosis Microcytosis Macrocytosis PT with INR 15.40 H INR 1.30 H PTT (Actin FS) Anticoagulation Therapy Puncture Site ABG pH ABG pCO2 at Pt Temp ABG pO2 at Pt Temp ABG HCO3 ABG O2 Sat (Measured) ABG O2 Content ABG Base Excess Jacob Test O2 Delivery Device Oxygen Flow Rate Vent Mode Vent Rate Mechanical Rate PEEP Pressure Support Vent Sodium 142 Potassium 4.5 Chloride 105 Carbon Dioxide 26 Anion Gap 10 BUN 37.2 H Creatinine 1.3 Est GFR (CKD-EPI)AfAm 53.48 Est GFR (CKD-EPI)NonAf 46.15 Random Glucose 125 H Calcium 8.0 L Total Bilirubin 0.4 Direct Bilirubin 0.2 AST 46 H ALT 48 Alkaline Phosphatase 486 H Total Protein 5.2 L Albumin 1.4 L Total Amylase 28 Lipase 101 Cancelled Urine Color Urine Appearance Urine pH Ur Specific [place] Urine Protein Urine Glucose (UA) Urine Ketones Urine Blood Urine Nitrite Urine Bilirubin Urine Urobilinogen Ur Leukocyte Esterase Urine WBC (Auto) Urine RBC (Auto) Urine Casts (Auto) U Epithel Cells (Auto) Urine Bacteria (Auto) 06/21/19 06/21/19 23:00 23:00 WBC RBC Hgb Hct MCV MCH MCHC RDW Plt Count MPV Absolute Neuts (auto) Neutrophils % Neutrophils % (Manual) Band Neutrophils % Lymphocytes % Lymphocytes % (Manual) Monocytes % Monocytes % (Manual) Eosinophils % Eosinophils % (Manual) Basophils % Basophils % (Manual) Myelocytes % (Man) Promyelocytes % (Man) Blast Cells % (Manual) Nucleated RBC % Metamyelocytes Hypochromia Platelet Estimate Polychromasia Poikilocytosis Anisocytosis Microcytosis Macrocytosis PT with INR INR PTT (Actin FS) Anticoagulation Therapy Puncture Site ABG pH ABG pCO2 at Pt Temp ABG pO2 at Pt Temp ABG HCO3 ABG O2 Sat (Measured) ABG O2 Content ABG Base Excess Jacob Test O2 Delivery Device Oxygen Flow Rate Vent Mode Vent Rate Mechanical Rate PEEP Pressure Support Vent Sodium Potassium Chloride Carbon Dioxide Anion Gap BUN Creatinine Est GFR (CKD-EPI)AfAm Est GFR (CKD-EPI)NonAf Random Glucose Calcium Total Bilirubin Cancelled Direct Bilirubin Cancelled Cancelled AST Cancelled ALT Cancelled Alkaline Phosphatase Cancelled Total Protein Cancelled Albumin Cancelled Total Amylase Lipase Urine Color Urine Appearance Urine pH Ur Specific [place] Urine Protein Urine Glucose (UA) Urine Ketones Urine Blood Urine Nitrite Urine Bilirubin Urine Urobilinogen Ur Leukocyte Esterase Urine WBC (Auto) Urine RBC (Auto) Urine Casts (Auto) U Epithel Cells (Auto) Urine Bacteria (Auto) Active Medications Generic Name Dose Route Start Last Admin Trade Name Freq PRN Reason Stop Dose Admin Acetaminophen 1,000 mg 06/17/19 20:53 06/17/19 22:07 Ofirmev Injection - IVPB 1,000 mg Q6H PRN Administration FEVER Albuterol/Ipratropium 1 amp 06/17/19 20:00 06/21/19 20:10 Duoneb - NEB 1 amp RQID JUAN ALBERTO Administration Artificial Tears 1 drop 06/19/19 11:26 06/22/19 07:06 Artificial Tears OU 1 drop Q4H JUAN ALBERTO Administration Chlorhexidine Gluconate 1 applic 06/17/19 22:00 06/21/19 21:11 Hibiclens For Decolonization - TP 1 applic HS JUAN ALBERTO Administration Heparin Sodium (Porcine) 5,000 unit 06/19/19 22:00 06/21/19 21:10 Heparin - SQ 5,000 unit BID JUAN ALBERTO Administration Lactated Ringer's 1,000 ml in 1,000 mls @ 75 mls/hr 06/20/19 11:09 06/22/19 02:56 Lactated Ringers Solution IV 75 mls/hr ASDIR JUAN ALBERTO Administration Vancomycin HCl 1,000 mg in 250 mls @ 166.667 mls/hr 06/21/19 18:00 06/22/19 06:54 Vancomycin (Pre-Docked) IVPB 166.667 mls/hr Q12H JUAN ALBERTO Administration Protocol Piperacillin Sod/Tazobactam 50 mls @ 100 mls/hr 06/21/19 10:00 06/22/19 02:02 Sod 3.375 gm/ Dextrose IVPB 100 mls/hr Q8H-IV JUAN ALBERTO Administration Protocol Morphine Sulfate 100 mg in 100 mls @ 1 mls/hr 06/22/19 10:00 Morphine 100mg/100ml-0.9% Nacl IVPB 06/23/19 09:59 TITR JUAN ALBERTO Protocol 1 MG/HR Ibuprofen 400 mg 06/17/19 17:00 Caldolor Injection - IVPB Q6H PRN FEVER Lorazepam 1 mg 06/22/19 10:00 Ativan Injection - IVPUSH 06/23/19 09:59 Q1H PRN AGITATION Morphine Sulfate 2 mg 06/17/19 21:00 06/22/19 02:56 Morphine Sulfate IVPUSH 2 mg Q6H JUAN ALBERTO Administration Morphine Sulfate 4 mg 06/22/19 10:00 Morphine Injection - IVPUSH 06/22/19 10:01 ONCE ONE Mupirocin 1 applic 06/17/19 22:00 06/21/19 21:12 Bactroban Ointment (For Decolonization) - NS 06/22/19 21:59 1 applic BID JUAN ALBERTO Administration Scopolamine HBr 1 patch 06/17/19 19:45 06/20/19 18:51 Transderm-Scop - TD 1 patch Q72H JUAN ALEBRTO Administration ASSESSMENT/PLAN: 53 year old female with PMH significant for Osteogenesis Imperfecta, COPD, Chronic Respiratory Failure s/p Trach, Autism Spectrum Disorder, Wedge Compression Fracture of T2 who presented to the ER from [facility] after a cardiac arrest, s/p ROSC. Suffering from anoxic brain injury, awaiting DCD ( Donor after Cardiac ) on 06/22. #Neuro - Anoxic Brain Injury 2/2 cardiopulmonary arrest #ID - Afebrile, Tylenol PRN for temp > 100 - WBC 19.2 -> 18.9 -> 17.3 -> 17.5 - Cont Zosyn 3.375mg and Vanco 1,000mg day 2 - Blood and urine cx no growth - Sputum cx Pseudomonas Aeruginosa - Mupirocin in nares for decolonization - ID on board Dr Payton #Cardio - Hypothermia protocol completed - Cardio on board #Pulm - Continue vent support, keep SpO2 >90% - Continue duonebs - Lasix as needed - Pulm on board #Heme - H&H 8.4/25.2 #GI - AST/ALT 81/92 -> 52/54 #Renal - BUN/Cr 29.8/1.2 -> 34.5/1.3 -> 37.2/1.3 -> 37.0/1.3 - RL @ 75 - Continue to monitor urine output and Cr #FEN - RL @ 75 #PPX - Heparin 5000 Q12H #Code Status - DNR/DNI #Dispo - Dr Mcfarland medical underwriter, who did not accept the case, consented to DCD. Case #[id number]. Luci gsa coordinator will contact medical underwriter with time of after extubation today - Taken to OR at 10:30AM today for terminal extubation ATTENDING PHYSICIAN STATEMENT I saw and evaluated the patient. I reviewed the resident's note and discussed the case with the resident. I agree with the resident's findings and plan as documented. SUBJECTIVE: OBJECTIVE: ASSESSMENT AND PLAN:
[2019-06-22 08:00] LABS: INR 1.25 (0.83-1.09); PROTHROMBIN TIME (PATIENT) 14.8 SEC (9.7-13.0)
[2019-06-22 08:01] VITALS: TEMP 97.8
[2019-06-22 08:02] LABS: ACTIVATED PTT 34.6 SECONDS (25.2-36.5)
[2019-06-22] MEDS: ALBUTEROL SO4 2.5/IPRATROPIUM 0.5 INH SOL 3 ML VIAL.NEB. NEB SCH (08:10)
[2019-06-22 08:12] LABS: ALBUMIN 1.3 g/dl (3.4-5.0); BILIRUBIN,DIRECT 0.1 mg/dL (0.0-0.2); BILIRUBIN,TOTAL 0.4 mg/dL (0.2-1); TOT PROT 4.9 g/dl (6.4-8.2)
[2019-06-22 08:24] LABS: ALBUMIN 1.4 g/dl (3.4-5.0); BILIRUBIN,TOTAL 0.4 mg/dL (0.2-1); BLOOD UREA NITROGEN 37.4 mg/dL (7-18); CALCIUM 8.3 mg/dL (8.5-10.1); CREATININE 1.3 mg/dL (0.55-1.3); TOT PROT 4.9 g/dl (6.4-8.2)
[2019-06-22] MEDS: MUPIROCIN 2% TOPICAL OINTMENT FOR DECOLONIZATION NS SCH (09:30)
[2019-06-22 09:49] LABS: BASO % 0.3 % (0-2.0); HEMATOCRIT 25.8 % (32.4-45.2); HEMOGLOBIN 8.3 GM/dL (10.7-15.3); LYMPH % 6.5 % (8-40); MCH 31.4 pg (25.7-33.7); MCHC 32.2 g/dl (32.0-36.0); MEAN CELL VOLUME 97.4 fl (80-96); MEAN PLT VOLUME 9.8 fl (7.5-11.1); MONO % 5.3 % (3.8-10.2); NEUT % 83.9 % (42.8-82.8); PLATELET COUNT 309 K/MM3 (134-434); RBC 2.64 M/mm3 (3.60-5.2); RDW 17.7 % (11.6-15.6); WHITE BLOOD COUNT 17.5 K/mm3 (4.0-10.0)
[2019-06-22] MEDS ORDERED: MORPHINE SULFATE/0.9% NACL/PF 100 MG/100 ML BAG IVPB SCH (10:00)
[2019-06-22] MEDS ORDERED: morphine SULFATE 4 MG/ML VIAL IVPUSH ONE (10:00)
[2019-06-22] MEDS ORDERED: ALBUTEROL SO4 2.5/IPRATROPIUM 0.5 INH SOL 3 ML VIAL.NEB. NEB ONE (10:02)
[2019-06-22 10:06] LABS: INR 1.26 (0.83-1.09); PROTHROMBIN TIME (PATIENT) 14.9 SEC (9.7-13.0)
[2019-06-22 10:30] LABS: ALBUMIN 1.3 g/dl (3.4-5.0); BILIRUBIN,DIRECT 0.2 mg/dL (0.0-0.2); BILIRUBIN,TOTAL 0.5 mg/dL (0.2-1); CALCIUM 8.4 mg/dL (8.5-10.1); CREATININE 1.3 mg/dL (0.55-1.3); POTASSIUM 4.7 mmol/L (3.5-5.1)
[2019-06-22] MEDS ORDERED: HEPARIN NA (PORCINE) 5,000 UNITS/ML 1ML VIAL IVPUSH ONE (10:30)
[2019-06-22 11:17] VITALS: BP 91/66; PULSE 79
--- NOTE | 2019-06-22 11:24 | PN ---
Teaching Attending Note Name of Resident: Kody Ross ATTENDING PHYSICIAN STATEMENT I saw and evaluated the patient. I reviewed the resident's note and discussed the case with the resident. I agree with the resident's findings and plan as documented. SUBJECTIVE: Patient seen and examined in the ICU. No events overnight. Clinical condition unchanged. For organ harvest today. OBJECTIVE: Intake & Output 06/19/19 06/20/19 06/21/19 06/22/19 23:59 23:59 23:59 23:59 Intake Total 2774 2531 3460 1310 Output Total 530 500 600 900 Balance 2244 2031 2860 410 Weight 129 lb 8 oz 133 lb 3.2 oz 133 lb 3.2 oz 133 lb 11.2 oz Last Vital Signs Temp Pulse Resp BP Pulse Ox 97.8 F 79 21 H 91/66 93 L 06/22/19 08:00 06/22/19 11:00 06/22/19 11:00 06/22/19 11:00 06/21/19 19:54 Active Medications Acetaminophen (Ofirmev Injection -) 1,000 mg IVPB Q6H PRN PRN Reason: FEVER Last Admin: 06/17/19 22:07 Dose: 1,000 mg Albuterol/Ipratropium (Duoneb -) 1 amp NEB RQID JUAN ALBERTO Last Admin: 06/22/19 08:10 Dose: 1 amp Artificial Tears (Artificial Tears) 1 drop OU Q4H JUAN ALBERTO Last Admin: 06/22/19 07:06 Dose: 1 drop Chlorhexidine Gluconate (Hibiclens For Decolonization -) 1 applic TP HS JUAN ALBERTO Last Admin: 06/21/19 21:11 Dose: 1 applic Heparin Sodium (Porcine) (Heparin -) 5,000 unit SQ BID JUAN ALBERTO Last Admin: 06/21/19 21:10 Dose: 5,000 unit Lactated Ringer's (Lactated Ringers Solution) 1,000 ml in 1,000 mls @ 75 mls/ hr IV ASDIR JUAN ALBERTO Last Admin: 06/22/19 02:56 Dose: 75 mls/hr Vancomycin HCl (Vancomycin (Pre-Docked)) 1,000 mg in 250 mls @ 166.667 mls/hr IVPB Q12H JUAN ALBERTO; Protocol Last Admin: 06/22/19 06:54 Dose: 166.667 mls/hr Piperacillin Sod/Tazobactam (Sod 3.375 gm/ Dextrose) 50 mls @ 100 mls/hr IVPB Q8H-IV JUAN ALBERTO; Protocol Last Admin: 06/22/19 09:29 Dose: 100 mls/hr Morphine Sulfate (Morphine 100mg/100ml-0.9% Nacl) 100 mg in 100 mls @ 1 mls/hr IVPB TITR JUAN ALBERTO; Protocol Stop: 06/23/19 09:59 Last Admin: 06/22/19 10:26 Dose: 1 mg/hr, 1 mls/hr Ibuprofen (Caldolor Injection -) 400 mg IVPB Q6H PRN PRN Reason: FEVER Lorazepam (Ativan Injection -) 1 mg IVPUSH Q1H PRN PRN Reason: AGITATION Stop: 06/23/19 09:59 Mupirocin (Bactroban Ointment (For Decolonization) -) 1 applic NS BID JUAN ALBERTO Stop: 06/22/19 21:59 Last Admin: 06/22/19 09:30 Dose: 1 applic Scopolamine HBr (Transderm-Scop -) 1 patch TD Q72H JUAN ALBERTO Last Admin: 06/20/19 18:51 Dose: 1 patch Gen: vented, minimally responsive Heart: RRR Lung: Vented Bilateral expiratory wheeze, scattered rhonchi Abd: soft, nontender Ext: + edema Laboratory Results - last 24 hr 06/21/19 06/21/19 06/21/19 05:30 17:00 17:00 WBC 18.9 H RBC 2.72 L Hgb 8.4 L Hct 26.1 L MCV 95.9 MCH 31.0 MCHC 32.3 RDW 17.1 H Plt Count 308 MPV 9.5 Absolute Neuts (auto) 15.6 H Neutrophils % 83.0 H Neutrophils % (Manual) 86.0 H Band Neutrophils % 0.0 Lymphocytes % 7.6 L D Lymphocytes % (Manual) 4.0 L D Monocytes % 5.7 Monocytes % (Manual) 7 Eosinophils % 3.4 Eosinophils % (Manual) 1.0 D Basophils % 0.3 Basophils % (Manual) 0.0 Myelocytes % (Man) 1 D Promyelocytes % (Man) 0 Blast Cells % (Manual) 0 Nucleated RBC % 0 Metamyelocytes 1 D Hypochromia 0 Platelet Estimate Normal Polychromasia 0 Poikilocytosis 0 Anisocytosis 1+ Microcytosis 0 Macrocytosis 1+ PT with INR INR PTT (Actin FS) Anticoagulation Therapy Puncture Site ABG pH ABG pCO2 at Pt Temp ABG pO2 at Pt Temp ABG HCO3 ABG O2 Sat (Measured) ABG O2 Content ABG Base Excess Jacob Test O2 Delivery Device Oxygen Flow Rate Vent Mode Vent Rate Mechanical Rate PEEP Pressure Support Vent Sodium 141 Potassium 4.5 Chloride 108 H Carbon Dioxide 26 Anion Gap 8 BUN 36.7 H Creatinine 1.4 H Est GFR (CKD-EPI)AfAm 48.90 Est GFR (CKD-EPI)NonAf 42.19 Random Glucose 115 H Calcium 8.0 L Total Bilirubin 0.7 Direct Bilirubin AST 47 H ALT 48 Alkaline Phosphatase 514 H Total Protein 5.2 L Albumin 1.5 L Total Amylase 36 Lipase Urine Color Urine Appearance Urine pH Ur Specific [place] Urine Protein Urine Glucose (UA) Urine Ketones Urine Blood Urine Nitrite Urine Bilirubin Urine Urobilinogen Ur Leukocyte Esterase Urine WBC (Auto) Urine RBC (Auto) Urine Casts (Auto) U Epithel Cells (Auto) Urine Bacteria (Auto) 06/21/19 06/21/19 06/21/19 17:00 17:00 17:00 WBC RBC Hgb Hct MCV MCH MCHC RDW Plt Count MPV Absolute Neuts (auto) Neutrophils % Neutrophils % (Manual) Band Neutrophils % Lymphocytes % Lymphocytes % (Manual) Monocytes % Monocytes % (Manual) Eosinophils % Eosinophils % (Manual) Basophils % Basophils % (Manual) Myelocytes % (Man) Promyelocytes % (Man) Blast Cells % (Manual) Nucleated RBC % Metamyelocytes Hypochromia Platelet Estimate Polychromasia Poikilocytosis Anisocytosis Microcytosis Macrocytosis PT with INR 15.20 H INR 1.28 H PTT (Actin FS) Anticoagulation Therapy Puncture Site ABG pH ABG pCO2 at Pt Temp ABG pO2 at Pt Temp ABG HCO3 ABG O2 Sat (Measured) ABG O2 Content ABG Base Excess Jacob Test O2 Delivery Device Oxygen Flow Rate Vent Mode Vent Rate Mechanical Rate PEEP Pressure Support Vent Sodium Potassium Chloride Carbon Dioxide Anion Gap BUN Creatinine Est GFR (CKD-EPI)AfAm Est GFR (CKD-EPI)NonAf Random Glucose Calcium Total Bilirubin 0.5 Direct Bilirubin 0.2 AST 47 H ALT 50 Alkaline Phosphatase 518 H Total Protein 5.3 L Albumin 1.5 L Total Amylase Lipase 157 Urine Color Urine Appearance Urine pH Ur Specific [place] Urine Protein Urine Glucose (UA) Urine Ketones Urine Blood Urine Nitrite Urine Bilirubin Urine Urobilinogen Ur Leukocyte Esterase Urine WBC (Auto) Urine RBC (Auto) Urine Casts (Auto) U Epithel Cells (Auto) Urine Bacteria (Auto) 06/21/19 06/21/19 06/21/19 17:00 18:00 20:50 WBC RBC Hgb Hct MCV MCH MCHC RDW Plt Count MPV Absolute Neuts (auto) Neutrophils % Neutrophils % (Manual) Band Neutrophils % Lymphocytes % Lymphocytes % (Manual) Monocytes % Monocytes % (Manual) Eosinophils % Eosinophils % (Manual) Basophils % Basophils % (Manual) Myelocytes % (Man) Promyelocytes % (Man) Blast Cells % (Manual) Nucleated RBC % Metamyelocytes Hypochromia Platelet Estimate Polychromasia Poikilocytosis Anisocytosis Microcytosis Macrocytosis PT with INR INR PTT (Actin FS) Anticoagulation Therapy No Result Required. Puncture Site Left radial ABG pH 7.35 ABG pCO2 at Pt Temp 45.1 H ABG pO2 at Pt Temp 144 H ABG HCO3 24.3 ABG O2 Sat (Measured) 98.6 H ABG O2 Content 15.6 ABG Base Excess -0.9 Jacob Test Positive O2 Delivery Device No Result Required. Oxygen Flow Rate 40 Vent Mode No Result Required. Vent Rate 16 Mechanical Rate No Result Required. PEEP 5.0 Pressure Support Vent 350 Sodium Potassium Chloride Carbon Dioxide Anion Gap BUN Creatinine Est GFR (CKD-EPI)AfAm Est GFR (CKD-EPI)NonAf Random Glucose Calcium Total Bilirubin Direct Bilirubin 0.2 AST ALT Alkaline Phosphatase Total Protein Albumin Total Amylase Lipase Urine Color Yellow Urine Appearance Clear Urine pH 5.5 Ur Specific [place] 1.008 L Urine Protein Trace Urine Glucose (UA) Negative Urine Ketones Negative Urine Blood Negative Urine Nitrite Negative Urine Bilirubin Negative Urine Urobilinogen 0.2 Ur Leukocyte Esterase Trace Urine WBC (Auto) 3 Urine RBC (Auto) 4 Urine Casts (Auto) 1 U Epithel Cells (Auto) 0.7 Urine Bacteria (Auto) 1.0 06/21/19 06/21/19 06/21/19 23:00 23:00 23:00 WBC 17.3 H RBC 2.67 L Hgb 8.4 L Hct 25.7 L MCV 96.5 H MCH 31.5 MCHC 32.7 RDW 17.2 H Plt Count 299 MPV 9.9 Absolute Neuts (auto) 14.4 H Neutrophils % 82.9 H Neutrophils % (Manual) Band Neutrophils % Lymphocytes % 7.3 L Lymphocytes % (Manual) Monocytes % 5.8 Monocytes % (Manual) Eosinophils % 3.7 Eosinophils % (Manual) Basophils % 0.3 Basophils % (Manual) Myelocytes % (Man) Promyelocytes % (Man) Blast Cells % (Manual) Nucleated RBC % 0 Metamyelocytes Hypochromia Platelet Estimate Polychromasia Poikilocytosis Anisocytosis Microcytosis Macrocytosis PT with INR INR PTT (Actin FS) Anticoagulation Therapy Puncture Site ABG pH ABG pCO2 at Pt Temp ABG pO2 at Pt Temp ABG HCO3 ABG O2 Sat (Measured) ABG O2 Content ABG Base Excess Jacob Test O2 Delivery Device Oxygen Flow Rate Vent Mode Vent Rate Mechanical Rate PEEP Pressure Support Vent Sodium 142 Potassium 4.5 Chloride 105 Carbon Dioxide 26 Anion Gap 10 BUN 37.2 H Creatinine 1.3 Est GFR (CKD-EPI)AfAm 53.48 Est GFR (CKD-EPI)NonAf 46.15 Random Glucose 125 H Calcium 8.0 L Total Bilirubin 0.4 Direct Bilirubin 0.2 AST 46 H ALT 48 Alkaline Phosphatase 486 H Total Protein 5.2 L Albumin 1.4 L Total Amylase 28 Lipase 101 Cancelled Urine Color Urine Appearance Urine pH Ur Specific [place] Urine Protein Urine Glucose (UA) Urine Ketones Urine Blood Urine Nitrite Urine Bilirubin Urine Urobilinogen Ur Leukocyte Esterase Urine WBC (Auto) Urine RBC (Auto) Urine Casts (Auto) U Epithel Cells (Auto) Urine Bacteria (Auto) 06/21/19 06/21/19 06/21/19 23:00 23:00 23:00 WBC RBC Hgb Hct MCV MCH MCHC RDW Plt Count MPV Absolute Neuts (auto) Neutrophils % Neutrophils % (Manual) Band Neutrophils % Lymphocytes % Lymphocytes % (Manual) Monocytes % Monocytes % (Manual) Eosinophils % Eosinophils % (Manual) Basophils % Basophils % (Manual) Myelocytes % (Man) Promyelocytes % (Man) Blast Cells % (Manual) Nucleated RBC % Metamyelocytes Hypochromia Platelet Estimate Polychromasia Poikilocytosis Anisocytosis Microcytosis Macrocytosis PT with INR 15.40 H INR 1.30 H PTT (Actin FS) Anticoagulation Therapy Puncture Site ABG pH ABG pCO2 at Pt Temp ABG pO2 at Pt Temp ABG HCO3 ABG O2 Sat (Measured) ABG O2 Content ABG Base Excess Jacob Test O2 Delivery Device Oxygen Flow Rate Vent Mode Vent Rate Mechanical Rate PEEP Pressure Support Vent Sodium Potassium Chloride Carbon Dioxide Anion Gap BUN Creatinine Est GFR (CKD-EPI)AfAm Est GFR (CKD-EPI)NonAf Random Glucose Calcium Total Bilirubin Cancelled Direct Bilirubin Cancelled Cancelled AST Cancelled ALT Cancelled Alkaline Phosphatase Cancelled Total Protein Cancelled Albumin Cancelled Total Amylase Lipase Urine Color Urine Appearance Urine pH Ur Specific [place] Urine Protein Urine Glucose (UA) Urine Ketones Urine Blood Urine Nitrite Urine Bilirubin Urine Urobilinogen Ur Leukocyte Esterase Urine WBC (Auto) Urine RBC (Auto) Urine Casts (Auto) U Epithel Cells (Auto) Urine Bacteria (Auto) 06/22/19 06/22/19 06/22/19 05:45 05:45 05:45 WBC 17.6 H RBC 2.47 L Hgb 7.8 L Hct 23.8 L MCV 96.4 H MCH 31.7 MCHC 32.9 RDW 17.4 H Plt Count 288 MPV 9.5 Absolute Neuts (auto) 14.7 H Neutrophils % 83.5 H Neutrophils % (Manual) Band Neutrophils % Lymphocytes % 7.1 L Lymphocytes % (Manual) Monocytes % 5.4 Monocytes % (Manual) Eosinophils % 3.8 Eosinophils % (Manual) Basophils % 0.2 Basophils % (Manual) Myelocytes % (Man) Promyelocytes % (Man) Blast Cells % (Manual) Nucleated RBC % 0 Metamyelocytes Hypochromia Platelet Estimate Polychromasia Poikilocytosis Anisocytosis Microcytosis Macrocytosis PT with INR 14.80 H INR 1.25 H PTT (Actin FS) 34.6 Anticoagulation Therapy Puncture Site ABG pH ABG pCO2 at Pt Temp ABG pO2 at Pt Temp ABG HCO3 ABG O2 Sat (Measured) ABG O2 Content ABG Base Excess Jacob Test O2 Delivery Device Oxygen Flow Rate Vent Mode Vent Rate Mechanical Rate PEEP Pressure Support Vent Sodium 142 Potassium 5.0 Chloride 109 H Carbon Dioxide 23 Anion Gap 10 BUN 37.4 H Creatinine 1.3 Est GFR (CKD-EPI)AfAm 53.48 Est GFR (CKD-EPI)NonAf 46.15 Random Glucose 89 Calcium 8.3 L Total Bilirubin 0.4 Direct Bilirubin AST 64 H ALT 54 Alkaline Phosphatase 541 H Total Protein 4.9 L Albumin 1.4 L Total Amylase 33 Lipase Urine Color Urine Appearance Urine pH Ur Specific [place] Urine Protein Urine Glucose (UA) Urine Ketones Urine Blood Urine Nitrite Urine Bilirubin Urine Urobilinogen Ur Leukocyte Esterase Urine WBC (Auto) Urine RBC (Auto) Urine Casts (Auto) U Epithel Cells (Auto) Urine Bacteria (Auto) 06/22/19 06/22/19 06/22/19 05:45 09:20 09:20 WBC 17.5 H RBC 2.64 L Hgb 8.3 L Hct 25.8 L MCV 97.4 H MCH 31.4 MCHC 32.2 RDW 17.7 H Plt Count 309 MPV 9.8 Absolute Neuts (auto) 14.7 H Neutrophils % 83.9 H Neutrophils % (Manual) Band Neutrophils % Lymphocytes % 6.5 L Lymphocytes % (Manual) Monocytes % 5.3 Monocytes % (Manual) Eosinophils % 4.0 Eosinophils % (Manual) Basophils % 0.3 Basophils % (Manual) Myelocytes % (Man) Promyelocytes % (Man) Blast Cells % (Manual) Nucleated RBC % 0 Metamyelocytes Hypochromia Platelet Estimate Polychromasia Poikilocytosis Anisocytosis Microcytosis Macrocytosis PT with INR INR PTT (Actin FS) Anticoagulation Therapy Puncture Site ABG pH ABG pCO2 at Pt Temp ABG pO2 at Pt Temp ABG HCO3 ABG O2 Sat (Measured) ABG O2 Content ABG Base Excess Jacob Test O2 Delivery Device Oxygen Flow Rate Vent Mode Vent Rate Mechanical Rate PEEP Pressure Support Vent Sodium 140 Potassium 4.7 Chloride 107 Carbon Dioxide 24 Anion Gap 9 BUN 37.0 H Creatinine 1.3 Est GFR (CKD-EPI)AfAm 53.48 Est GFR (CKD-EPI)NonAf 46.15 Random Glucose 112 H Calcium 8.4 L Total Bilirubin 0.4 0.5 Direct Bilirubin 0.1 0.2 AST 62 H 63 H ALT 54 57 Alkaline Phosphatase 539 H 554 H Total Protein 4.9 L 5.0 L Albumin 1.3 L 1.3 L Total Amylase 53 Lipase 144 349 Urine Color Urine Appearance Urine pH Ur Specific [place] Urine Protein Urine Glucose (UA) Urine Ketones Urine Blood Urine Nitrite Urine Bilirubin Urine Urobilinogen Ur Leukocyte Esterase Urine WBC (Auto) Urine RBC (Auto) Urine Casts (Auto) U Epithel Cells (Auto) Urine Bacteria (Auto) 06/22/19 09:20 WBC RBC Hgb Hct MCV MCH MCHC RDW Plt Count MPV Absolute Neuts (auto) Neutrophils % Neutrophils % (Manual) Band Neutrophils % Lymphocytes % Lymphocytes % (Manual) Monocytes % Monocytes % (Manual) Eosinophils % Eosinophils % (Manual) Basophils % Basophils % (Manual) Myelocytes % (Man) Promyelocytes % (Man) Blast Cells % (Manual) Nucleated RBC % Metamyelocytes Hypochromia Platelet Estimate Polychromasia Poikilocytosis Anisocytosis Microcytosis Macrocytosis PT with INR 14.90 H INR 1.26 H PTT (Actin FS) Anticoagulation Therapy Puncture Site ABG pH ABG pCO2 at Pt Temp ABG pO2 at Pt Temp ABG HCO3 ABG O2 Sat (Measured) ABG O2 Content ABG Base Excess Jacob Test O2 Delivery Device Oxygen Flow Rate Vent Mode Vent Rate Mechanical Rate PEEP Pressure Support Vent Sodium Potassium Chloride Carbon Dioxide Anion Gap BUN Creatinine Est GFR (CKD-EPI)AfAm Est GFR (CKD-EPI)NonAf Random Glucose Calcium Total Bilirubin Direct Bilirubin AST ALT Alkaline Phosphatase Total Protein Albumin Total Amylase Lipase Urine Color Urine Appearance Urine pH Ur Specific [place] Urine Protein Urine Glucose (UA) Urine Ketones Urine Blood Urine Nitrite Urine Bilirubin Urine Urobilinogen Ur Leukocyte Esterase Urine WBC (Auto) Urine RBC (Auto) Urine Casts (Auto) U Epithel Cells (Auto) Urine Bacteria (Auto) ASSESSMENT AND PLAN: s/p Cardiopulmonary Arrest Anoxic Brain Injury r/o Sepsis Lactic Acidosis Elevated LFTs likely Ischemic Injury +Troponins likely Demand Ischemia Chronic Respiratory Failure COPD Autism Osteogenesis Imperfecta Anemia - AC Mode of vent - Protocol per organ donation - For organ harvest today Dr Aguilar
--- NOTE | 2019-06-22 11:39 | PN ---
Progress Note, Physician Chief Complaint: patient for end of life organ donation patient prepped for O.R. to donate organs all measures discussed with family ICU team here full discussion d/w Dr Aguilar. - Current Medication List Current Medications: Active Medications Acetaminophen (Ofirmev Injection -) 1,000 mg IVPB Q6H PRN PRN Reason: FEVER Last Admin: 06/17/19 22:07 Dose: 1,000 mg Albuterol/Ipratropium (Duoneb -) 1 amp NEB RQID JUAN ALBERTO Last Admin: 06/22/19 08:10 Dose: 1 amp Artificial Tears (Artificial Tears) 1 drop OU Q4H JUAN ALBERTO Last Admin: 06/22/19 07:06 Dose: 1 drop Chlorhexidine Gluconate (Hibiclens For Decolonization -) 1 applic TP HS JUAN ALBERTO Last Admin: 06/21/19 21:11 Dose: 1 applic Heparin Sodium (Porcine) (Heparin -) 5,000 unit SQ BID JUAN ALBERTO Last Admin: 06/21/19 21:10 Dose: 5,000 unit Lactated Ringer's (Lactated Ringers Solution) 1,000 ml in 1,000 mls @ 75 mls/ hr IV ASDIR JUAN ALBERTO Last Admin: 06/22/19 02:56 Dose: 75 mls/hr Vancomycin HCl (Vancomycin (Pre-Docked)) 1,000 mg in 250 mls @ 166.667 mls/hr IVPB Q12H JUAN ALBERTO; Protocol Last Admin: 06/22/19 06:54 Dose: 166.667 mls/hr Piperacillin Sod/Tazobactam (Sod 3.375 gm/ Dextrose) 50 mls @ 100 mls/hr IVPB Q8H-IV JUAN ALBERTO; Protocol Last Admin: 06/22/19 09:29 Dose: 100 mls/hr Morphine Sulfate (Morphine 100mg/100ml-0.9% Nacl) 100 mg in 100 mls @ 1 mls/hr IVPB TITR JUAN ALBERTO; Protocol Stop: 06/23/19 09:59 Last Admin: 06/22/19 10:26 Dose: 1 mg/hr, 1 mls/hr Ibuprofen (Caldolor Injection -) 400 mg IVPB Q6H PRN PRN Reason: FEVER Lorazepam (Ativan Injection -) 1 mg IVPUSH Q1H PRN PRN Reason: AGITATION Stop: 06/23/19 09:59 Mupirocin (Bactroban Ointment (For Decolonization) -) 1 applic NS BID [facility] Stop: 06/22/19 21:59 Last Admin: 06/22/19 09:30 Dose: 1 applic Scopolamine HBr (Transderm-Scop -) 1 patch TD Q72H [facility] Last Admin: 06/20/19 18:51 Dose: 1 patch - Objective Vital Signs: Vital Signs Temperature 97.8 F 06/22/19 08:00 Pulse Rate 79 06/22/19 11:00 Respiratory Rate 21 H 06/22/19 11:00 Blood Pressure 91/66 06/22/19 11:00 O2 Sat by Pulse Oximetry (%) 93 L 06/21/19 19:54 Constitutional: Yes: Other Cardiovascular: Yes: Pulse Irregular Respiratory: Yes: On Venti-Mask Gastrointestinal: Yes: Soft Musculoskeletal: Yes: Muscle Weakness Wound/Incision: Yes: Unapproximated Neurological: Yes: Pre-Existing Deficit, Unresponsive Labs: CBC, BMP 06/22/19 09:20 06/22/19 09:20 INR, PTT INR 1.26 (0.83-1.09) H 06/22/19 09:20 Fibrinogen 455.0 mg/dL (238-498) 06/18/19 05:45 Problem List - Problems (1) Abdominal distension Code(s): R14.0 - ABDOMINAL DISTENSION (GASEOUS) (2) Autism disorder Code(s): F84.0 - AUTISTIC DISORDER (3) COPD (chronic obstructive pulmonary disease) Code(s): J44.9 - CHRONIC OBSTRUCTIVE PULMONARY DISEASE, UNSPECIFIED (4) Cardiac arrest Code(s): I46.9 - CARDIAC ARREST, CAUSE UNSPECIFIED (5) Osteogenesis imperfecta Code(s): Q78.0 - OSTEOGENESIS IMPERFECTA (6) Sepsis Code(s): A41.9 - SEPSIS, UNSPECIFIED ORGANISM (7) Transaminitis Code(s): R74.0 - NONSPEC ELEV OF LEVELS OF TRANSAMNS & LACTIC ACID DEHYDRGNSE Assessment/Plan Organ donation Protocol Sedated Oxygen ,ask scopalamine Family Aware
[2019-06-22] MEDS ORDERED: LORazepam 2 MG/ML SDV VIAL ONE ×2 (11:43→13:18)
[2019-06-22] MEDS: LORazepam 2 MG/ML SDV VIAL IVPUSH PRN ×2 (13:05→13:40)
--- NOTE | 2019-06-22 13:34 | EKG ---
Test Reason : Blood Pressure : / mmHG Vent. Rate : 075 BPM Atrial Rate : 075 BPM P-R Int : 116 ms QRS Dur : 078 ms QT Int : 364 ms P-R-T Axes : 061 038 054 degrees QTc Int : 406 ms NORMAL SINUS RHYTHM NORMAL ECG WHEN COMPARED WITH ECG OF 13-JUN-2019 11:17, QT HAS SHORTENED Confirmed by SABRINA ARGUETA MD ([id number]) on 06/22/2019 1:34:20 PM Referred By: Confirmed By:SABRINA ARGUETA MD
--- NOTE | 2019-06-22 14:37 | PN ---
Progress Note (short form) - Note Progress Note: Vent shut off at 1:08 pm; asystole at 1:57 pm and official time of 1:59- declared by Dr. Quiroga in the OR; absent corneal/ blink reflexes; absent carotid pulse - organ donation surgery to follow.
== END 2019-06-22 14:00 | disposition expired | DRG 870 ==
LOC: JER 23:12 → JERBED 06-13 01:04 → JICU 06-13 03:55 → J5S 06-14 21:10 → JICU 06-17 13:21
PROVIDERS: ADMIT Internal Medicine; ATTEND Family Medicine
PROC: 5A1955Z Respiratory Ventilation, Greater than 96 Consecutive Hours (ICD-10-PCS; principal; 2019-06-13)
DX: A41.50 Gram-negative sepsis, unspecified (principal); J69.0 Pneumonitis due to inhalation of food and vomit; Q78.0 Osteogenesis imperfecta; J96.12 Chronic respiratory failure with hypercapnia; J93.9 Pneumothorax, unspecified; F84.0 Autistic disorder; E87.2 Acidosis; I24.8 Other forms of acute ischemic heart disease; J98.11 Atelectasis; G93.1 Anoxic brain damage, not elsewhere classified; Z93.0 Tracheostomy status; D72.829 Elevated white blood cell count, unspecified; R74.0 Nonspecific elevation of levels of transaminase and lactic acid dehydrogenase [LDH]; J44.9 Chronic obstructive pulmonary disease, unspecified
CPT/HCPCS: 36415; 36430; 36511; 36600; 70450-TC; 71045-TC-FY; 74018-TC-FY; 76705-TC; 80048; 80053; 80076; 81003; 82150; 82172; 82248; 82375; 82550; 82553; 82803; 82977; 83010; 83036; 83050; 83540; 83550; 83605; 83690; 83735; 83883; 83935; 84100; 84460; 84484; 85025; 85027; 85384; 85610; 85730; 86704; 86706; 86707; 86708; 86709; 86850; 86900; 86901; 86922; 87040; 87070; 87086; 87186; 87205; 87340; 87350; 93005; 93010; 93306-TC; 93970-TC; 94002; 94640; 99285-25; J0131; J1644; J7030; P9038; P9058